=== PATIENT | female | born 1965 | race Caucasian/White ===

== ENCOUNTER 2020-12-01 12:51 | Outpatient (CLI) | payer BC, SELFPAY ==
--- NOTE | ~2020-12-01 | MM_ITS ---
EXAMINATION: MM screening [facility] BI w otis HISTORY: Screening mammogram TECHNIQUE: Craniocaudal and mediolateral oblique 3-D tomosynthesis images were obtained and synthetic 2-D images were generated. CAD analysis was submitted and interpreted. COMPARISON: 03/17/2013, 11/12/2011 bilateral digital screening mammogram examinations BREAST PARENCHYMAL COMPOSITION: There are scattered areas of fibroglandular density. FINDINGS: There is no evidence of suspicious mass, calcification, or architectural distortion to sugg est malignancy in either breast. There has been no suspicious interval change. IMPRESSION: 1. No mammographic evidence of malignancy. 2. Recommend routine screening mammography in one year. BI-RADS Category 1: Negative Reviewed, dictated and finalized at location A.
== END 2020-12-01 12:52 | disposition home or self-care (01) ==
LOC: ANHIMG 12:56
PROVIDERS: PCP Family Medicine; Visit Provider Family Medicine
DX: Z12.31 Encounter for screening mammogram for malignant neoplasm of breast (principal)
CPT/HCPCS: 77063; 77067

== ENCOUNTER 2022-05-17 11:27 | Outpatient (RCR) | payer BC, SELFPAY ==
[2022-05-17 12:52] LABS: Hematocrit 23.4 % (37.0-47.0)
[2022-05-17 12:54] LABS: Hemoglobin 6.6 g/dL (12.0-15.0)
[2022-05-17] MEDS: ACETAMINOPHEN 500 MG TABLET PO (13:46)
[2022-05-17] MEDS: diphenhydrAMINE HCl CAP 25 MG CAPSULE 50 MG PO (13:47)
[2022-05-17] MEDS: SODIUM CHLORIDE 0.9% IV 250 ML 30 ML IV CONT (13:50)
[2022-05-17 13:55] VITALS: BP 133/72; PULSE 72; RESP 16; TEMP 36.8; O2SAT 100
[2022-05-17 14:10] VITALS: BP 137/64; PULSE 71; RESP 16; TEMP 36.8; O2SAT 100
[2022-05-17 15:10] VITALS: BP 144/71; PULSE 77; RESP 16; TEMP 36.6; O2SAT 100
[2022-05-17 16:10] VITALS: BP 126/67; PULSE 72; RESP 16; TEMP 36.8; O2SAT 100
[2022-05-17 16:50] VITALS: BP 137/69; PULSE 75; RESP 16; TEMP 36.7; O2SAT 100
== END 2022-08-15 23:59 | disposition home or self-care (01) ==
LOC: ANHCPCTRAN 11:27
PROVIDERS: PCP Family Medicine; Visit Provider Internal Medicine Medical Oncology
DX: D50.0 Iron deficiency anemia secondary to blood loss (chronic) (principal)
CPT/HCPCS: 36415; 36430; 85014; 85018; 86850; 86900; 86901; 86920; A9270; J7050; P9016

== ENCOUNTER 2022-07-09 11:12 | Outpatient (CLI) | payer BC, SELFPAY ==
--- NOTE | ~2022-07-09 | MM_ITS ---
EXAMINATION: MM screening [facility] BI w otis HISTORY: Screening TECHNIQUE: Craniocaudal and mediolateral oblique 3-D tomosynthesis images were obtained and synthetic 2-D images were generated. CAD analysis was submitted and interpreted. COMPARISON: Comparison to multiple prior studies sequentially, with oldest reviewed study dated 03/17. BREAST PARENCHYMAL COMPOSITION: There are scattered areas of fibroglandular density. FINDINGS: There is a stable fat-containing mass in the periareolar location of the right breast, unch anged, consistent with benign fibroadenolipoma. There is no evidence of suspicious mass, calcificatio n, or architectural distortion to suggest malignancy in either breast. There has been no suspicious i nterval change. IMPRESSION: 1. No mammographic evidence of malignancy. 2. Recommend routine screening mammography in one year. BI-RADS Category 2: Benign finding(s). Reviewed, dictated and finalized at location A. NING SYSTEMS OFFICER
== END 2022-07-09 11:13 | disposition home or self-care (01) ==
PROVIDERS: PCP Family Medicine; Visit Provider Family Medicine
DX: Z12.31 Encounter for screening mammogram for malignant neoplasm of breast (principal)
CPT/HCPCS: 77063; 77067

== ENCOUNTER 2023-07-23 11:25 | Inpatient (IN) | payer BC, SELFPAY ==
[2023-07-23] VITALS (48 sets, daily range): BP systolic 70–156; BP diastolic 45–87; PULSE 83–144; RESP 13–32; TEMP 36.5–38; O2SAT 93–100; BMI 40.4
--- NOTE | ~2023-07-23 | XR_ITS ---
EXAMINATION: XR chest 2V DATE: 07/23/2023 13:50 INDICATION: Sepsis. Low back pain. Weakness. TECHNIQUE: Frontal and lateral views of the chest were obtained. COMPARISON: CT abdomen and pelvis 07/23/2023 FINDINGS: There is mild atelectasis in the lower lung zones. No pleural effusion or pneumothorax. Car diomegaly is noted. There is a large hiatal hernia. IMPRESSION: 1. Mild atelectasis in the lower lung zones. 2. Cardiomegaly. 3. Large hiatal hernia. Reviewed, dictated and finalized at location A. ATTENDANT
--- NOTE | ~2023-07-23 | XR_ITS ---
EXAM: XR abdomen gastric tube insert DATE: 07/23/2023 22:34 HISTORY: ng tube placement . COMPARISON: None available. FINDINGS: NG tube, tip and side port over the stomach. IVC filter. Partially visualized left uretera l stent. Left basilar atelectasis/aspiration. Normal bowel gas pattern. No organomegaly. No abnormal abdominal calcification. Regional bones and soft tissues normal for age. IMPRESSION: NG tube in good position. Reviewed, dictated and finalized at location K. ETING ASSISTANT IMPRESSION: NG tube in good position.
--- NOTE | ~2023-07-23 | XR_ITS ---
EXAMINATION: XR chest 1V portable Exam Date/Time: 07/23/2023 22:12 SUSTAINABILITY SPECIALIST HISTORY: line placement Comparison: Same date at 1:47 PM. RESULT: Lines, tubes, and devices: Endotracheal tube terminating 2.8 cm above the ligia. Left IJ central ve nous line terminating in the brachiocephalic vein. Lungs and pleura: Low lying crowding. Diffuse reticular opacities. Streaky left basilar opacities. Cardiomediastinal silhouette: Stable. Other: No acute osseous or upper abdominal finding. IMPRESSION: Endotracheal tube and left IJ central venous line in good position. Subsegmental left basilar opacities, may represent atelectasis or aspiration given the rapid onset. Mild interstitial edema Reviewed, dictated and finalized at location K. AINABILITY SPECIALIST IMPRESSION: Endotracheal tube and left IJ central venous line in good position. Subsegmental left basilar opacities, may represent atelectasis or aspiration gi shalini the rapid onset. Mild interstitial edema
--- NOTE | ~2023-07-23 | XR_ITS ---
Portable chest x-ray Comparison: 07/24/2023 Clinical History: Tube placement Findings: Endotracheal tube, NG tube, and left-sided central venous line are in satisfactory distanc e. There is left lower lobe/retrocardiac consolidation. There is mild central congestive change in th e right lung. Cardiomediastinal silhouette is stable. Bones and soft tissues are unremarkable. Impression: Left lower lobe atelectasis versus pneumonia. Mild central congestive change. Support tubes, as above. Reviewed, dictated and finalized at location . RT COOLER Impression: Left lower lobe atelectasis versus pneumonia. Mild central congestive change. Support tubes, as above.
--- NOTE | ~2023-07-23 | XR_ITS ---
Portable chest x-ray Comparison: 07/29/2023 Clinical History: Respiratory failure Findings: Endotracheal tube, NG tube, and left-sided central venous line remain in place. There is c entral congestive change with mild bibasilar pulmonary edema. Cardiomediastinal silhouette is stable . Bones and soft tissues are unremarkable. Impression: Central congestive change and probable mild bibasilar pulmonary edema. Correlate clinically for infec tion. Support tubes, as above. Reviewed, dictated and finalized at location . ECTIONERY DROPS MACHINE OPERATOR Impression: Central congestive change and probable mild bibasilar pulmonary edema. Correlat e clinically for infection. Support tubes, as above.
--- NOTE | ~2023-07-23 | XR_ITS ---
Portable chest x-ray Comparison: 07/28/2023 Clinical History: Respiratory failure Findings: Endotracheal tube and NG tube are in satisfactory positions. Left-sided central venous gentry e is unchanged. There is mild patchy bibasilar perihilar airspace disease. Cardiomediastinal silhoue tte is stable. Bones and soft tissues are unremarkable. Impression: Support tubes, as above. Probable mild bibasilar pulmonary edema/atelectasis. Correlate clinically for infection. Reviewed, dictated and finalized at location . CE INVESTIGATOR Impression: Support tubes, as above. Probable mild bibasilar pulmonary edema/atelectasis. Correlate clinically for i nfection.
--- NOTE | ~2023-07-23 | XR_ITS ---
Portable chest x-ray Comparison: 07/27/2023 Clinical History: Respiratory failure Findings: Endotracheal tube, NG tube, and left-sided central venous line are in satisfactory positio ns. There is probable mild pulmonary edema pattern. No definite pleural effusions. Cardiomediastinal silhouette is stable. Bones and soft tissues are unremarkable. Impression: Mild pulmonary edema pattern. Support tubes, as above. Reviewed, dictated and finalized at location . RVISOR WINTER Impression: Mild pulmonary edema pattern. Support tubes, as above.
--- NOTE | ~2023-07-23 | XR_ITS ---
EXAMINATION: XR chest 1V portable DATE: 07/26/2023 06:00 INDICATION: Intubated TECHNIQUE: frontal view of the chest was obtained. COMPARISON: Chest radiograph dated 07/25/2023 FINDINGS: Endotracheal tube tip 3.1 cm above level of the ligia. Airspace opacities with some air bronchograms in the left lower lung zone. No pulmonary edema, pneumothorax or right pleural effusion. Possible sm all left pleural effusion. The cardiomediastinal silhouette is normal. IMPRESSION: 1. Persistent opacities at the left lower lung zone which could represent atelectasis, pneumonia, sma ll left pleural effusion or some combination thereof. Reviewed, dictated and finalized at location A. [facility] [facility] ANALYST IMPRESSION: 1. Persistent opacities at the left lower lung zone which could represent atele ctasis, pneumonia, small left pleural effusion or some combination thereof.
--- NOTE | ~2023-07-23 | CT_ITS ---
Non-contrast Head CT History: Encephalopathy Technique: Axial non-contrast imaging of the brain was performed. Dose reduction technique was used on this scan by utilizing automated exposure control and iterative reconstruction technique. The dose -length product (DLP) was 605.33 mGy-cm. Findings: There is no evidence of intracranial hemorrhage, mass lesion, or acute infarct. Brain par enchyma appears normal. The ventricles and subarachnoid spaces are normal in size. The calvarium ap pears normal. The visualized paranasal sinuses and mastoid air cells are clear. Impression: No significant abnormality seen. Reviewed, dictated and finalized at location . TREATING INSPECTOR Impression: No significant abnormality seen.
--- NOTE | ~2023-07-23 | XR_ITS ---
EXAMINATION: XR chest 1V portable INDICATION: Respiratory failure TECHNIQUE: Portable AP chest at 0558 hours COMPARISON: 08/01/2023 FINDINGS: A left internal jugular catheter ends with this tip in the brachiocephalic vein. The heart size is normal. A mild diffuse interstitial pattern persists without significant change. No pleural e ffusion or pneumothorax. IMPRESSION: 1. Mild pulmonary edema, stable. Reviewed, dictated and finalized at location F. I SPINDLE OPERATOR
--- NOTE | ~2023-07-23 | XR_ITS ---
EXAMINATION: XR chest 1V portable DATE: 07/27/2023 06:25 INDICATION: Intubated TECHNIQUE: frontal view of the chest was obtained. COMPARISON: Chest radiograph dated 07/26/2023 FINDINGS: Endotracheal tube tip 3.0 cm above the ligia. Nasogastric tube in the stomach. Left internal jugular central venous catheter with distal tip in the left brachiocephalic vein. Lung volumes remain small. Persistent consolidation with air bronchograms in the left lower lung zone . There is also a small left pleural effusion. There are some retrodiaphragmatic opacities at the rig ht lung base which could represent additional atelectasis or pneumonia. No pneumothorax or right-side d pleural effusion. Heart size within normal limits for AP technique. Large hiatal hernia. IMPRESSION: 1. Small lung volumes with opacities in the bilateral lower lung zones, left greater than right, whic h could represent atelectasis or pneumonia. 2. Small left pleural effusion. 2. Large hiatal hernia. Reviewed, dictated and finalized at location A. VIOLIN MAKER IMPRESSION: 1. Small lung volumes with opacities in the bilateral lower lung zones, left gr eater than right, which could represent atelectasis or pneumonia. 2. Small left pleural effusion. 2. Large hiatal hernia.
--- NOTE | ~2023-07-23 | XR_ITS ---
Portable chest x-ray Comparison: 07/31/2023 Clinical History: Respiratory failure Findings: Left-sided central venous line is in satisfactory position. Possible minimal bibasilar bandar tral congestive change. Cardiomediastinal silhouette is stable. Bones and soft tissues are unremarka ble. Impression: Support line, as above. Possible minimal bibasilar central congestive change. Reviewed, dictated and finalized at location M. OMS APPRAISER Impression: Support line, as above. Possible minimal bibasilar central congestive change.
--- NOTE | ~2023-07-23 | XR_ITS ---
EXAMINATION: XR chest ET placement DATE: 07/28/2023 19:51 INDICATION: Intubation. TECHNIQUE: A single frontal view of the chest was obtained. COMPARISON: Chest single view at 5:21 AM, CT abdomen and pelvis 07/23/2023 FINDINGS: There is no pneumonia, pleural effusion, or pneumothorax. Cardiomegaly is noted. There is a moderate-sized hiatal hernia. The endotracheal tube tip is 3.3 cm above the ligia. The nasogastric tube tip is in the stomach. A left internal jugular central venous catheter is seen with tip in the l eft brachiocephalic vein. IMPRESSION: 1. Cardiomegaly. 2. Moderate-sized hiatal hernia. Reviewed, dictated and finalized at location E. GHT CHECKER
--- NOTE | ~2023-07-23 | CT_ITS ---
EXAMINATION: CT abdomen pelvis wo con DATE: 07/23/2023 13:45 INDICATION: Left flank pain. Sepsis. TECHNIQUE: Computed tomography (CT) of the abdomen and pelvis was performed without intravenous contr ast. The dose-length product was 1493.51 mGy-cm. Automated exposure control and iterative reconstruct ion technique were employed. COMPARISON: CT dated 06/23/2014. FINDINGS: There is dependent atelectasis. Heart size normal. Large hiatal hernia. There is thickening of the left adrenal gland which may reflect adrenal hyperplasia or underlying adrenal adenoma. There are multiple bilateral nonobstructing renal stones. There is an 8 mm left UPJ stone with hydronephro sis. There is a prominent left umbilical vein. There is a periumbilical hernia containing nonobstruct ed small bowel. There is moderate fluid throughout the small bowel without obstruction. Status post h ysterectomy. Colonic diverticulosis without evidence for diverticulitis. There is an IVC filter prese nt. There is grade 2 spondylolisthesis at L5-S1 secondary to spondylolysis. Moderate lumbar and lower thoracic spondylosis. IMPRESSION: 1. Left UPJ stone measuring 8 mm with moderate hydronephrosis. 2: Nonobstructing bilateral nephrolithiasis. 3: Large hiatal hernia. 4: Umbilical hernia containing nonobstructed small bowel. Reviewed, dictated and finalized at location B. S DEVELOPMENT DIRECTOR
--- NOTE | ~2023-07-23 | XR_ITS ---
EXAMINATION: XR chest 1V portable INDICATION: Respiratory failure TECHNIQUE: Portable AP chest at 0613 hours COMPARISON: 08/02/2023 FINDINGS: A left internal jugular catheter ends with its tip in the brachiocephalic vein. The heart s ize is normal. No pleural effusion or pneumothorax. A mild diffuse interstitial pattern persists with out significant change. IMPRESSION: 1. Stable, mild pulmonary edema. Reviewed, dictated and finalized at location F. OPERATION SUPERVISOR
--- NOTE | ~2023-07-23 | XR_ITS ---
Portable chest x-ray Comparison: 07/23/2023 Clinical History: Tube placement Findings: Endotracheal tube and NG tube are in satisfactory positions. There is probable retrocardia c airspace disease, unchanged. Right lung essentially clear. Cardiomediastinal silhouette is stable. Bones and soft tissues are unremarkable. Impression: Support tubes, as above. Probable retrocardiac airspace disease, compatible with atelectasis versus pneumonia. Reviewed, dictated and finalized at location M. CAL GOODS WORKER Impression: Support tubes, as above. Probable retrocardiac airspace disease, compatible with atelectasis versus pneu monia.
--- NOTE | ~2023-07-23 | XR_ITS ---
EXAMINATION: XR retrograde pyelo w/stent LT DATE: 07/23/2023 21:00 ORDINARY SEAMAN INDICATION: KIDNEY STONE . TECHNIQUE: 4 fluoroscopic images including a cine clip and 45 images of the abdomen and pelvis were o btained during left retrograde pyelography with stent placement. I was not present during the procedu re. Fluoroscopy exposure time was 46.3 seconds. Air Kerma 29.57 mGy. DAP 1.49 mGym2. COMPARISON: CT abdomen pelvis, same date FINDINGS: IVC filter. 8mm left ureteral stone. Mild caliectasis and pelviectasis. Post stent deployment, the pr oximal coil projects over an upper pole calyx, the distal coil projects over the bladder. IMPRESSION: Fluoroscopic documentation of left retrograde pyelography with stent placement. Please refer to the o perative note for complete procedural details . Reviewed, dictated and finalized at location K. NARY SEAMAN IMPRESSION: Fluoroscopic documentation of left retrograde pyelography with stent placement. Please refer to the operative note for complete procedural details .
--- NOTE | ~2023-07-23 | XR_ITS ---
Portable chest x-ray Comparison: 07/30/2023 Clinical History: Respiratory failure Findings: Endotracheal tube, NG tube and left-sided central venous line are in satisfactory position . There is minimal bibasilar interstitial prominence. Cardiomediastinal silhouette is stable. Bones and soft tissues are unremarkable. Impression: Minimal bibasilar interstitial prominence, nonspecific. Stable support tubes. Reviewed, dictated and finalized at [facility]. ED CHEESE MAKER Impression: Minimal bibasilar interstitial prominence, nonspecific. Stable support tubes.
--- NOTE | ~2023-07-23 | US_ITS ---
EXAMINATION: US abdomen limited DATE: 07/25/2023 13:44 INDICATION: Abnormal liver function tests. TECHNIQUE: Multiple grayscale and Doppler ultrasound images of the abdomen were obtained. COMPARISON: CT abdomen and pelvis 07/23/2023 FINDINGS: The visualized portions of the head, body, and tail of the pancreas are normal. The liver i s normal without focal lesion. There is is antegrade flow in main portal vein. The gallbladder is nor mal in size and contains gallstones. Gallbladder wall thickening is noted. The common duct is normal and measures 6 mm. IMPRESSION: 1. Cholelithiasis. Gallbladder wall thickening may be seen with chronic liver disease, interstitial e kinsey, or chronic cholecystitis. Reviewed, dictated and finalized at location A. DRIVER IMPRESSION: 1. Cholelithiasis. Gallbladder wall thickening may be seen with chronic liver d isease, interstitial edema, or chronic cholecystitis.
--- NOTE | 2023-07-23 12:04 | PC.NURSE ---
Provider aware of patient's BP and gave verbal order for a liter of normal saline
--- NOTE | 2023-07-23 12:05 | ED.NAVMDI ---
HPI - Nausea/Vomiting/Diarrhea General Chief complaint: Nausea/Vomiting/Diarrhea Stated complaint: sick since friday, kidney stone r/o Time Seen by Provider: 07/23/23 12:03 History of Present Illness HPI Narrative: Patient is a 58-year-old female here with generalized weakness and left flank pain. Patient states that on Friday, 4 days ago she began having left-sided flank pain. She notes that it was associated with diffuse body myalgias as well as dry heaves. She notes she has had some mild feeling of fever, has not checked her temperature. She has had a couple episodes of loose stools, they were dark in color but this is typical for her due to taking iron supplementation for chronic anemia. She does note a prior history of kidney stone, was concerned that this could be another kidney stone and called her primary care doctor to attempt to go to outpatient imaging today. They were unavailable to be reached so this prompted her to come into the emergency department. She notes she has had some decreased p.o. intake. She does note a mild cough. No urinary symptoms. No known sick contacts. Related Data Home Medications Medication Instructions Recorded Confirmed ascorbate calcium (vitamin C) 500 500 mg PO DAILY 03/02/20 05/28/23 mg tablet pantoprazole 40 mg tablet,delayed 40 mg PO QAM 02/22/21 05/28/23 release vitamin B complex (B 1 tablet PO DAILY 06/27/22 05/28/23 Complex-Vitamin B12 tablet) vitamin E (dl, acetate) 45 mg (100 45 mg PO DAILY 06/27/22 05/28/23 unit) capsule Allergies Allergy/AdvReac Type Severity Reaction Status Date / Time meperidine Allergy Unknown hypotension Verified 07/23/23 11:56 gabapentin AdvReac Mild could not Verified 07/23/23 11:56 tolerate duloxetine [From Cymbalta] AdvReac could not Verified 07/23/23 11:56 tolerate how she felt Review of Systems Review of Systems: All systems reviewed & are unremarkable except as noted in HPI and below PMFSH Past Medical History Medical History (Updated 07/23/23 @ 19:44 by Bella Reyes, BETTY) Acute upper GI bleed Complex regional pain syndrome i of left lower limb Generalized anxiety disorder Hiatal hernia egd : hiatal hernia Sepsis Surgical History Surgical History History of partial hysterectomy (~1999) Family History Family History Mother Family history of malignant neoplasm Family history of diabetes mellitus in first degree relative Other Diabetes mellitus Social History Social History Smoking status: Never smoker Alcohol intake: never Lack of Transportation: No Lack of Food: Never True Current Housing: I Have Housing Concerned About Future Housing: No Difficulty Paying Gas/Electric Bills: No Currently Unemployed: No Education: Grade School Difficulty w/ Childcare or Family Care: No Exam Narrative: GENERAL: Ill-appearing, well-nourished, and in no acute distress. HEAD: Normocephalic, atraumatic. EYES: PERRLA and EOMI. ENT: Nares clear. Mucous membranes dry. NECK: Supple. CHEST: Clear to auscultation. No respiratory distress. HEART: Regular rate and rhythm. Normal peripheral pulses. ABDOMEN: Soft, nontender, nondistended. Left CVA tenderness. EXTREMITIES: Normal range of motion. No edema. SKIN: Warm, dry, no rash. NEURO: No focal deficits. Alert and oriented x3. PSYCH: Normal mood and affect. Course Course Emergency Course: Chart review performed. Patient hypotensive at 70/46. Complaining of lower back pain as well as N/V/D per triage note. Clinic note from October reviewed, history of GI bleed, complex regional pain syndrome. Patient seen evaluated, ill-appearing, however able to carry on full conversation. Some mild tachypnea with dry mucous membranes. She has left-sided CVA
--- NOTE | 2023-07-23 12:06 | ECG_ITS ---
Measurements Intervals [place] Rate: 82 P: 27 TN: 135 QRS: 7 QRSD: 94 T: -1 QT: 359 QTc: 420 Interpretive Statements SINUS RHYTHM LEFT VENTRICULAR HYPERTROPHY BORDERLINE ST-T WAVE ABNORMALITY- INFERIOR LEADS BORDERLINE ECG NO PREVIOUS ECG AVAILABLE FOR COMPARISON Electronically Signed On 07-23-2023 12:47:18 [employer]OUTE [employer]ER by Everardo Isaac D.O.
[2023-07-23] MEDS: ONDANSETRON INJ 4 MG/2 ML VIAL IV PUSH ×2 (12:23→20:48)
[2023-07-23 12:31] LABS: Hematocrit 29.1 % (37.0-47.0); Hemoglobin 9.2 g/dL (12.0-15.0); Mean Corpuscular HGB Conc 31.6 g/dl (32-36); Mean Corpuscular Hemoglobin 29.6 pg (26-34); Mean Corpuscular Volume 93.6 fl (80-100); Mean Platelet Volume 11.5 fl (7.4-10.4); Platelet Count Result 125 k/mm3 (150-375); Red Blood Count 3.11 M/mm3 (4.2-5.4); Red Cell Distribution Width 14.5 % (11.5-14.5); White Blood Count 20.3 K/mm3 (4.5-10.0)
[2023-07-23 12:34] LABS: INR 1.2; Prothrombin Time 16.3 Seconds (11.1-14.7)
[2023-07-23 12:36] LABS: Lactic Acid Reflex 3.5 mmol/L (0.7-2.0); Partial Thromboplastin Time 39.2 SECONDS (22.3-36.8)
[2023-07-23] MEDS: LACTATED RINGERS 1,000 ML 999 ML IV CONT ×3 (12:45→15:13)
[2023-07-23] MEDS: SODIUM CHLORIDE 0.9% IV 1,000 ML 999 ML (12:46)
[2023-07-23 12:49] LABS: Alanine Aminotransferase 30 U/L (6-35); Albumin Level 3.6 g/dL (3.5-5.1); Alkaline Phosphatase 102 U/L (38-126); Anion Gap 15 mmol/L (8-16); Aspartate Amino Transferase 36 U/L (14-36); Bilirubin,Total 0.8 mg/dL (0.2-1.3); Blood Urea Nitrogen 31 mg/dL (7-17); CRP 23.7 mg/dL (<1.0); Calcium 8.8 mg/dL (8.4-10.2); Carbon Dioxide 17 mmol/L (22-30); Chloride 107 mmol/L (98-107); Estimated Glomerular Filt Rate 20; Glucose 101 mg/dL (65-110); Lipase 28 U/L (23-300); Potassium 3.6 mmol/L (3.4-5.0); Sodium 139 mmol/L (137-145); Troponin I 0.969 ng/mL (0.000-0.034)
[2023-07-23 12:56] LABS: Band Neutrophils Percent 46 % (0-6); Lymphocytes Absolute Manual 0.81 K/mm3 (1.1-4.5); Metamyelocytes Percent 3 %; Monocytes Absolute Manual 0.81 K/mm3 (0.1-0.90); Monocytes Percent Manual 4 % (3-9); Neutrophils Absolute Manual 18.06 K/mm3 (1.7-7.2); Neutrophils Percent Manual 43 % (46-73); Total Cells Counted 100
[2023-07-23 12:57] LABS: Platelet Estimate Adequate (Adequate)
[2023-07-23 12:58] LABS: Anisocytosis 1+ (NORMAL); Hypochromasia 1+ (NORMAL); Schistocytes None Seen (NORMAL)
[2023-07-23 13:24] LABS: Influenza A QL RT-PCR Negative (Negative); Influenza B QL RT-PCR Negative (Negative); RSV RNA, RT-PCR Negative (Negative); SARS-CoV-2 RNA PCR Negative (Negative)
--- NOTE | 2023-07-23 13:37 | PC.NURSE ---
Attempted straight catheter on patient with no success. Bladder scanner showed 150mL in bladder. Will let provider know and attempt again to collect urine specimen.
[2023-07-23] MEDS: CEFEPIME 2 GM/NS 50 ML 2 GM/50 ML BAG IVPB (14:17)
--- NOTE | 2023-07-23 15:05 | PC.NURSE ---
Patient aware of needing urine, but patient is refusing straight catheter. will make provider aware
[2023-07-23 15:21] LABS: Reflex Lactic Acid Yes or No Add Lactic
--- NOTE | 2023-07-23 16:02 | ECG_ITS ---
Measurements Intervals [place] Rate: 98 P: 43 VT: 130 QRS: 15 QRSD: 94 T: 12 QT: 325 QTc: 416 Interpretive Statements SINUS RHYTHM FREQUENT ATRIAL PREMATURE COMPLEXES BORDERLINE ST-T WAVE ABNORMALITY- INFERIOR LEADS BASELINE ARTIFACT- I, II, III, AVR, AVL, AVF, V3-V6 ABNORMAL ECG COMPARED TO ECG 07/23/2023 12:13:12 ATRIAL PREMATURE COMPLEXES NOW PRESENT Electronically Signed On 07-23-2023 16:27:24 SUBSTITUTE NURSE by Everardo Isaac D.O.
[2023-07-23 16:28] LABS: Lactic Acid 3.5 mmol/L (0.7-2.0)
[2023-07-23] MEDS: VANCOMYCIN 1,250 MG/NS 250 ML 1,250 MG/250 ML BAG 166.67 MG IVPB ×2 (16:39→18:30)
--- NOTE | 2023-07-23 16:44 | PC.NURSE ---
Pt asking again about water after being educated on why she cannot drink/eat per Dr. Don. This RN spoke with MD and educated pt and family again about possible need for OR tonight and need for urine and states that patient will not be able to eat/drink until after urine is received and need for OR tonight is ruled out. Provider aware of discussion and that patient is still refusing straight cath for urine.
--- NOTE | 2023-07-23 16:51 | PC.NURSE ---
Patient able to ambulate to the restroom with steady gate
[2023-07-23 18:22] LABS: Appearance Urine Turbid (Clear); Bacteria Urine Rare /hpf; Bilirubin Urine 1+ (Negative); Blood Urine 2+ (Negative); Color Urine Dark Yellow (Yellow); Glucose Urine UA Negative (Negative); Ketones Urine Trace mg/dL (Negative); Leukocyte Esterase Ur 2+ LEU/UL (Negative); Need Manual Microscopic Reviewed; Nitrate Urine Negative (Negative); Non Pathogenic Casts >20; Protein Urine 2+ mg/dL (Negative); RBC Urine 0-2 /hpf (0-2); Specific Grav Ur 1.021 (1.001-1.035); Squamous Epithelial Cell Urine Few /hpf (Few); Urobilinogen Urine 0.2 mg/dL (<2.0); WBC Urine >100 /hpf
[2023-07-23 18:25] LABS: Add Urine Microscopic? YES
--- NOTE | 2023-07-23 19:43 | WPDANESEPP ---
Anes - Eval Pre Procedure Procedure: cysto left stent Date/Time: 07/23/23 19:43 Pre Op Diagnosis: sick since friday, kidney stone r/o Patient Data Age: 58 Gender: F Height: 1.68 m Weight: 108.8 kg Last Vital Signs Temp 36.5 C 07/23/23 11:43 Pulse 100 07/23/23 19:31 Resp 18 07/23/23 19:31 BP 118/78 07/23/23 19:30 Pulse Ox 98 07/23/23 19:31 O2 Del Method Room Air 07/23/23 11:43 Allergies Allergy/AdvReac Type Severity Reaction Status Date / Time meperidine Allergy Unknown hypotension Verified 07/23/23 11:56 gabapentin AdvReac Mild could not Verified 07/23/23 11:56 tolerate [facility] AdvReac could not Verified 07/23/23 11:56 tolerate how she felt Home Medications Medication Instructions Recorded Confirmed Type ascorbate calcium (vitamin C) 500 500 mg PO DAILY 03/02/20 05/28/23 History mg tablet pantoprazole 40 mg tablet,delayed 40 mg PO QAM 02/22/21 05/28/23 History release vitamin B complex (B 1 tablet PO DAILY 06/27/22 05/28/23 History Complex-Vitamin B12 tablet) vitamin E (dl, acetate) 45 mg (100 45 mg PO DAILY 06/27/22 05/28/23 History unit) capsule lovastatin 10 mg tablet See Rx Instructions .Route 10/09/22 05/28/23 Rx .COMPLEX #90 tabs triamcinolone acetonide 0.1 % 1 applic topical BID #80 grams 05/28/23 05/28/23 Rx topical cream alprazolam 0.25 mg tablet 0.25 mg PO DAILY PRN anxiety #30 07/14/23 Rx tabs Laboratory Tests 07/23/23 07/23/23 07/23/23 12:15 12:16 12:42 WBC 20.3 H K/mm3 (4.5-10.0) RBC 3.11 L M/mm3 (4.2-5.4) Hgb 9.2 L g/dL (12.0-15.0) Hct 29.1 L % (37.0-47.0) MCV 93.6 fl (80-100) MCH 29.6 pg (26-34) MCHC 31.6 L g/dl (32-36) RDW 14.5 % (11.5-14.5) Plt Count 125 L k/mm3 (150-375) MPV 11.5 H fl (7.4-10.4) Immature Gran % (Auto) Not Reportable Neut % (Auto) Not Reportable Lymph % (Auto) Not Reportable [place] % (Auto) Not Reportable Eos % (Auto) Not Reportable Baso % (Auto) Not Reportable Lymph # (Auto) Not Reportable [place] # (Auto) Not Reportable Eos # (Auto) Not Reportable Baso # (Auto) Not Reportable Abs Immat Gran (auto) Not Reportable Absolute Neuts (auto) Not Reportable Absolute Nucleated RBC Not Reportable Total Counted 100 Neutrophils % (Manual) 43 L % (46-73) Band Neutrophils % 46 H % (0-6) Lymphocytes % (Manual) 4.0 L % (18-44) Monocytes % (Manual) 4 % (3-9) Metamyelocytes % 3 % Nucleated RBC % Not Reportable Abs Neuts (Manual) 18.06 H K/mm3 (1.7-7.2) Abs Lymphs (Manual) 0.81 L K/mm3 (1.1-4.5) Abs Monocytes (Manual) 0.81 K/mm3 (0.1-0.90) Platelet Estimate Adequate (Adequate) Hypochromasia 1+ (NORMAL) Anisocytosis 1+ (NORMAL) Schistocytes None seen (NORMAL) PT 16.3 H Seconds (11.1-14.7) INR 1.2 APTT 39.2 H SECONDS (22.3-36.8) Sodium 139 mmol/L (137-145) Potassium 3.6 mmol/L (3.4-5.0) Chloride 107 mmol/L (98-107) Carbon Dioxide 17 L mmol/L (22-30) Anion Gap 15 mmol/L (8-16) BUN 31 H mg/dL (7-17) Creatinine 2.50 H mg/dL (0.7-1.0) Estim Creat Clear Calc Not Reportable Estimated GFR 20 L (59 - ) Glucose 101 mg/dL (65-110) Lactic Acid 3.5 H mmol/L (0.7-2.0) Calcium 8.8 mg/dL (8.4-10.2) Total Bilirubin 0.8 mg/dL (0.2-1.3) AST 36 U/L (14-36) ALT 30 U/L (6-35) Alkaline Phosphatase 102 U/L (38-126) Troponin I 0.969 H* ng/mL (0.000-
[2023-07-23] MEDS: fentaNYL CITRATE INJ (*CRX) 100 MCG/2 ML VIAL 50 MCG IV PUSH (19:59)
[2023-07-23] MEDS: MORPHINE SULFATE (*CRX) 4 MG/ML INJ IV PUSH (20:46)
--- NOTE | 2023-07-23 20:50 | WPDURCON ---
Assessment and Plan Assessment and plan (1) Septic shock: Code(s): A41.9 - Sepsis, unspecified organism; R65.21 - Severe sepsis with septic shock Status: Acute (2) Acute UTI: Code(s): N39.0 - Urinary tract infection, site not specified Status: Acute (3) Left ureteral stone: Code(s): N20.1 - Calculus of ureter Status: Acute Plan 58-year-old female with 8mm left UPJ stone and associated UTI/sepsis. -emergent cystoscopy and left ureteral stent insertion. Risks of procedure include but limited to infection, bleeding, pain, injury to surrounding structures, inability to place stent, need for additional operation discussed. Patient understands that she will need additional definitive stone management when she recovers from this procedure. -patient will require postoperative ICU management. -continue broad-spectrum IV antibiotics. Urology Consult Note HPI Date Seen: 07/23/23 Primary Care Provider: Allan Andrade MD Consult Narrative Narrative: Olesya Pappas is a 58 year old female with a history nephrolithiasis. She states that she felt poorly for the past few days. The patient presented to the emergency department earlier today she was found to be hypotensive. CT scan imaging revealed a left UPJ stone and urinalysis concerning for UTI. Urology was consulted for evaluation PMFSH Past Medical History Medical History (Updated 07/23/23 @ 20:53 by Neema Calderón MD) Acute upper GI bleed Complex regional pain syndrome i of left lower limb Generalized anxiety disorder Hiatal hernia egd .22: hiatal hernia Left ureteral stone Sepsis Surgical History Surgical History History of partial hysterectomy (~1999) Family History Family History Mother Family history of malignant neoplasm Family history of diabetes mellitus in first degree relative Other Diabetes mellitus Social History Social History Smoking status: Never smoker Alcohol intake: never Lack of Transportation: No Lack of Food: Never True Current Housing: I Have Housing Concerned About Future Housing: No Difficulty Paying Gas/Electric Bills: No Currently Unemployed: No Education: Grade School Difficulty w/ Childcare or Family Care: No Meds Home Medications and Allergies Home Medications Medication Instructions Recorded Confirmed Type ascorbate calcium (vitamin C) 500 500 mg PO DAILY 03/02/20 05/28/23 History mg tablet pantoprazole 40 mg tablet,delayed 40 mg PO QAM 02/22/21 05/28/23 History release vitamin B complex (B 1 tablet PO DAILY 06/27/22 05/28/23 History Complex-Vitamin B12 tablet) vitamin E (dl, acetate) 45 mg (100 45 mg PO DAILY 06/27/22 05/28/23 History unit) capsule lovastatin 10 mg tablet See Rx Instructions .Route 10/09/22 05/28/23 Rx .COMPLEX #90 tabs triamcinolone acetonide 0.1 % 1 applic topical BID #80 grams 05/28/23 05/28/23 Rx topical cream alprazolam 0.25 mg tablet 0.25 mg PO DAILY PRN anxiety #30 07/14/23 Rx tabs Allergies Allergy/AdvReac Type Severity Reaction Status Date / Time meperidine Allergy Unknown hypotension Verified 07/23/23 11:56 gabapentin AdvReac Mild could not Verified 07/23/23 11:56 tolerate duloxetine [From Cymbalta] AdvReac could not Verified 07/23/23 11:56 tolerate how she felt Vital Signs Vital Signs - 24 hr 07/23/23 11:43 07/23/23 12:04 07/23/23 11:53 Temperature 36.5 C Pulse Rate 97 84 Respiratory Rate 16 24 H Blood Pressure 70/46 L 71/45 L Pulse Oximetry 98 96 96 Oxygen Delivery Room Air 07/23/23 12:00 07/23/23 12:15 07/23/23 12:26 Temperature Pulse Rate 83 84 85 Respiratory Rate 27 H 23 H 29 H Blood Pressure 78/54 L Pulse Oximetry 97 Oxygen Delivery 06/26
--- NOTE | 2023-07-23 21:04 | PC.NURSE ---
Got a call from the OR about patient. This RN went to get patient ready for OR at 2039 and found patient splinting and tachypneic. patient states was having severe back pain. Patient placed on 4L oxygen NC and this RN went to get a provider to put eyes on the patient. CORA Montes De Oca, went to patient's room and ordered 4mg morphine for patient due to her splinting and pain. Dr Calderón came to patient's bedside and states that the patient needed to get to the OR for her procedure. This RN took patient to the OR per Dr Calderón orders for her procedure.
--- NOTE | 2023-07-23 21:21 | P.OP_ITS ---
Procedure Note - Detailed Date of Procedure 07/23/23 Pre-op Diagnosis Left ureteral stone, sepsis Post-op Diagnosis Same Procedure Performed Cystoscopy, left retrograde pyelogram, left ureteral stent insertion, Byers catheter insertion Surgeon Neema Calderón MD Anesthesia General Findings Left proximal ureteral stone pushed back into the renal pelvis with stent insertion Moderate left hydronephrosis on retrograde pyelogram Description of Procedure Informed consent was obtained. Patient taken the operating. She was given preoperative IV antibiotics. She reduced anesthesia. She was prepped and draped normal sterile fashion. A 22 F cystoscope was inserted into the urethra. The bladder had mucosal changes consistent with her known infection. We cannulated the left ureteral orifice with a wire and then advanced a 5 F angiographic catheter. The stone was seen in the proximal ureter. We then performed retrograde pyelogram which noted moderate left hydronephrosis. The left ureter stone appeared to be pushed back into the renal pelvis with the re trograde pyelogram. Over the wire a 6 F variable length stent was placed with a curl in the upper pole calyx and a curl in the bladder. The bladder was emptied with a 18 F Byers catheter. The patient was then taken to the ICU in guarded condition Complications No immediate complications Condition Critical Disposition ICU
[2023-07-23] MEDS: LIDOCAINE HCL 2% GEL UROJET 10 ML PKG MUCOUS MEM (21:29)
--- NOTE | 2023-07-23 21:55 | ECG_ITS ---
Measurements Intervals [place] Rate: 112 P: 36 [place]: 148 QRS: 8 QRSD: 87 T: 7 QT: 299 QTc: 409 Interpretive Statements SINUS TACHYCARDIA NONSPECIFIC ST & T-WAVE ABNORMALITY- DIFFUSE LEADS ABNORMAL ECG COMPARED TO ECG 07/23/2023 16:12:18 SINUS TACHYCARDIA NOW PRESENT Electronically Signed On 07-24-2023 6:30:20 [employer] SKILLS TEACHER by Everardo Isaac D.O.
--- NOTE | 2023-07-23 22:00 | WPDANESEPPF ---
Anes - Initial Pre Proc Eval Procedure: Operation Date: 07/23/23 08:30 Proposed Procedures p Cysto, RPG, Stone Ext, Stent Placement(Left) - Neema Calderón MD Date/Time: 07/23/23 22:01 Pre Op Diagnosis: sick since friday, kidney stone r/o Patient Data Age: 58 Gender: F Height: 1.68 m Weight: 108.8 kg Last Vital Signs Temp 36.5 C 07/23/23 11:43 Pulse 109 H 07/23/23 20:30 Resp 26 H 07/23/23 20:30 BP 99/55 L 07/23/23 20:16 Pulse Ox 97 07/23/23 20:16 O2 Del Method Room Air 07/23/23 11:43 Allergies Allergy/AdvReac Type Severity Reaction Status Date / Time meperidine Allergy Unknown hypotension Verified 07/23/23 11:56 gabapentin AdvReac Mild could not Verified 07/23/23 11:56 tolerate duloxetine [From [facility]] AdvReac could not Verified 07/23/23 11:56 tolerate how she felt Home Medications Medication Instructions Recorded Confirmed Type ascorbate calcium (vitamin C) 500 500 mg PO DAILY 03/02/20 05/28/23 History mg tablet pantoprazole 40 mg tablet,delayed 40 mg PO QAM 02/22/21 07/23/23 History release vitamin B complex (B 1 tablet PO DAILY 06/27/22 05/28/23 History Complex-Vitamin B12 tablet) vitamin E (dl, acetate) 45 mg (100 45 mg PO DAILY 06/27/22 05/28/23 History unit) capsule alprazolam 0.25 mg tablet 0.25 mg PO DAILY PRN anxiety #30 07/14/23 07/23/23 Rx tabs lovastatin 10 mg tablet 10 mg PO HS 07/23/23 07/23/23 History Laboratory Tests 07/23/23 07/23/23 07/23/23 12:15 12:16 12:42 WBC 20.3 H K/mm3 (4.5-10.0) RBC 3.11 L M/mm3 (4.2-5.4) Hgb 9.2 L g/dL (12.0-15.0) Hct 29.1 L % (37.0-47.0) MCV 93.6 fl (80-100) MCH 29.6 pg (26-34) MCHC 31.6 L g/dl (32-36) RDW 14.5 % (11.5-14.5) Plt Count 125 L k/mm3 (150-375) MPV 11.5 H fl (7.4-10.4) Immature Gran % (Auto) Not Reportable Neut % (Auto) Not Reportable Lymph % (Auto) Not Reportable [place] % (Auto) Not Reportable Eos % (Auto) Not Reportable Baso % (Auto) Not Reportable Lymph # (Auto) Not Reportable [place] # (Auto) Not Reportable Eos # (Auto) Not Reportable Baso # (Auto) Not Reportable Abs Immat Gran (auto) Not Reportable Absolute Neuts (auto) Not Reportable Absolute Nucleated RBC Not Reportable Total Counted 100 Neutrophils % (Manual) 43 L % (46-73) Band Neutrophils % 46 H % (0-6) Lymphocytes % (Manual) 4.0 L % (18-44) Monocytes % (Manual) 4 % (3-9) Metamyelocytes % 3 % Nucleated RBC % Not Reportable Abs Neuts (Manual) 18.06 H K/mm3 (1.7-7.2) Abs Lymphs (Manual) 0.81 L K/mm3 (1.1-4.5) Abs Monocytes (Manual) 0.81 K/mm3 (0.1-0.90) Platelet Estimate Adequate (Adequate) Hypochromasia 1+ (NORMAL) Anisocytosis 1+ (NORMAL) Schistocytes None seen (NORMAL) PT 16.3 H Seconds (11.1-14.7) INR 1.2 APTT 39.2 H SECONDS (22.3-36.8) Sodium 139 mmol/L (137-145) Potassium 3.6 mmol/L (3.4-5.0) Chloride 107 mmol/L (98-107) Carbon Dioxide 17 L mmol/L (22-30) Anion Gap 15 mmol/L (8-16) BUN 31 H mg/dL (7-17) Creatinine 2.50 H mg/dL (0.7-1.0) Estim Creat Clear Calc Not Reportable Estimated GFR 20 L (59 - ) Glucose 101 mg/dL (65-110) Lactic Acid 3.5 H mmol/L (0.7-2.0) Calcium 8.8 mg/dL (8.4-10.2) Total Bilirubin 0.8 mg/dL (0.2-1.3) AST 36 U/L (14-36) ALT 30 U/L (6-35) Alkaline Phosphatase 102 U/L (38-126) Troponin I 0.969 H* ng/mL (0.000-0.034)
--- NOTE | 2023-07-23 22:03 | ADMGEN ---
This patient, Olesya Pappas, was admitted to Intensive Care Unit-7. Patient/family oriented to hospital policies and general routines including ID bracelet, bed and alarms, visiting hours, pain management, procedures, bathroom and other care routines, personal items, smoking policy, room service/diet, and visiting hours. Information on how to activate the Rapid Response Team has been discussed. Patient/Family are encouraged to report perceived risks to care and to ask questions if they do not understand what they are told or what they should do.
--- NOTE | 2023-07-23 22:08 | P.PCNANE_ITS ---
Anes - Cent Venous Cath Note Consent: I have discussed with the patient/family/POA, the non-emergent placement of a central venous catheter, including its clinical necessity/indication and associated potential risks and complications. The patient/family/POA understand(s) and acknowledge(s) the need to proceed with central venous catheter insertion as an important element of the patient's clinical management given emergent patient conditions, temporal constraints may have precluded informed consent. Time-Out: A pre-procedural Time-Out was completed immediately before starting the procedure and confirmed: Patient Identification, Site, Procedure, Patient Position and the Availability of Requisite Equipment. Procedure Note Clinical Indications: sepsis critically ill Patient position: supine Central venous catheter insertion site: left internal jugular CVC method of insertion: ultrasound-guided Hand hygiene/Aseptic technique: Hand hygiene procedures were performed. Aseptic technique was maintained throughout the procedure. Sterile barrier precautions: Maximal sterile barrier precautions, including use of a cap, mask, sterile gown, sterile gloves and a sterile full body drape. Site prep: chlorhexidine Skin anesthesia: placed under general anesthesia [place]: 7 Lumen: 3 Length (cm): 20 cm Depth of insertion (cm): 16 Closure/Dressing: suture, biopatch and tegaderm Complications: None immediately noted/suspected. Chest X Ray: Ordered/review to follow. Procedure comments: RIJ accessed under U/S three times resistance to wire pass at about six inches, withdrawn intact each time. LIJ accessed with U/S wire passed catheter place at 16 cm. Pt stable sent to ICU. CXR ordered.
[2023-07-23] MEDS: FENTANYL 2,500MCG/NS250ML(*CRX 2,500 MCG/250 ML BAG IV CONT (22:30)
[2023-07-23] MEDS: MIDAZOLAM 100MG/NS 100ML(*CRX) 100 MG/100 ML BAG IV CONT (22:31)
--- NOTE | 2023-07-23 22:38 | PM.IMHP ---
H&P: HPI History of Present Illness Date/Time: 07/23/23 22:38 Chief Complaint: back pain Narrative: This is a 67-year-old female with past medical history significant for morbid obesity, complex regional pain syndrome, dyslipidemia, GERD. Patient presents to the emergency room due to back pain and not feeling well overall. In emergency room patient had being anuric for several hours unable to give a urine sample. CT of abdomen and pelvis showed a retained UPJ stone. Patient received fluids and was taken to the OR for stent placement. Was unable to been weaned off of ventilator. Patient developed hypotension. Left IJ was placed patient responded to fluids. Preliminary workup was significant for elevated troponins. Currently in ICU. EXAMINATION: CT abdomen pelvis wo con DATE: 07/23/2023 13:45 INDICATION: Left flank pain. Sepsis. TECHNIQUE: Computed tomography (CT) of the abdomen and pelvis was performed without intravenous contrast. The dose-length product was 1493.51 mGy-cm. Automated exposure control and iterative reconstruction technique were employed. COMPARISON: CT dated 06/23/2014. FINDINGS: There is dependent atelectasis. Heart size normal. Large hiatal hernia. There is thickening of the left adrenal gland which may reflect adrenal hyperplasia or underlying adrenal adenoma. There are multiple bilateral nonobstructing renal stones. There is an 8 mm left UPJ stone with hydronephrosis. There is a prominent left umbilical vein. There is a periumbilical hernia containing nonobstructed small bowel. There is moderate fluid throughout the small bowel without obstruction. Status post hysterectomy. Colonic diverticulosis without evidence for diverticulitis. There is an IVC filter present. There is grade 2 spondylolisthesis at L5-S1 secondary to spondylolysis. Moderate lumbar and lower thoracic spondylosis. IMPRESSION: 1. Left UPJ stone measuring 8 mm with moderate hydronephrosis. 2:? Nonobstructing bilateral nephrolithiasis. 3: Large hiatal hernia. 4: Umbilical hernia containing nonobstructed small bowel. EXAMINATION: XR chest 2V DATE: 07/23/2023 13:50 INDICATION: Sepsis. Low back pain. Weakness. TECHNIQUE: Frontal and lateral views of the chest were obtained. COMPARISON: CT abdomen and pelvis 07/23/2023 FINDINGS: There is mild atelectasis in the lower lung zones. No pleural effusion or pneumothorax. Cardiomegaly is noted. There is a large hiatal hernia. IMPRESSION: 1. Mild atelectasis in the lower lung zones. 2. Cardiomegaly. 3. Large hiatal hernia. Review of Systems Review of Systems: ROS unobtainable: Yes unobtainable due to mental status (on ventilator support) [facility] Past Medical History Medical History Acute upper GI bleed Complex regional pain syndrome i of left lower limb Generalized anxiety disorder Hiatal hernia egd : hiatal hernia Left ureteral stone Sepsis Surgical History Surgical History History of partial hysterectomy (~1999) Family History Family History Mother Family history of malignant neoplasm Family history of diabetes mellitus in first degree relative Other Diabetes mellitus Social History Social History Smoking status: Never smoker Alcohol intake: never Substance use: never Lack of Transportation: No Lack of Food: Never True Current Housing: I Have Housing Concerned About Future Housing: No Difficulty Paying Gas/Electric Bills: No Currently Unemployed: No Education: Grade School Difficulty w/ Childcare or Family Care: No Spiritual care concerns: No Meds Home Medications and Allergies Home Medications Medication Instructions Recorded Confirmed Type ascorbate calcium (vitamin C) 500 500 mg PO D
[2023-07-23 22:50] LABS: Hematocrit 28.3 % (37.0-47.0); Hemoglobin 8.6 g/dL (12.0-15.0); Immature Platelet Fraction Pct 6.5 % (0.9-11.2); Mean Corpuscular HGB Conc 30.4 g/dl (32-36); Mean Corpuscular Hemoglobin 29.4 pg (26-34); Mean Corpuscular Volume 96.6 fl (80-100); Mean Platelet Volume 11.6 fl (7.4-10.4); Platelet Count Result 91 k/mm3 (150-375); Red Blood Count 2.93 M/mm3 (4.2-5.4); Red Cell Distribution Width 14.7 % (11.5-14.5); White Blood Count 7.7 K/mm3 (4.5-10.0)
[2023-07-23 22:59] LABS: INR 1.4
[2023-07-23 23:00] LABS: Partial Thromboplastin Time 42.5 SECONDS (22.3-36.8)
[2023-07-23 23:04] LABS: Alanine Aminotransferase 35 U/L (6-35); Albumin Level 3.2 g/dL (3.5-5.1); Alkaline Phosphatase 194 U/L (38-126); Anion Gap 13 mmol/L (8-16); Aspartate Amino Transferase 55 U/L (14-36); Blood Urea Nitrogen 36 mg/dL (7-17); Calcium 7.9 mg/dL (8.4-10.2); Carbon Dioxide 16 mmol/L (22-30); Chloride 109 mmol/L (98-107); Creatine Kinase 260 U/L (30-135); Estimated CRCL calculation 30 ml/min; Estimated Glomerular Filt Rate 22; Glucose 106 mg/dL (65-110); Lactic Acid Reflex 3.3 mmol/L (0.7-2.0); Magnesium 1.5 mg/dL (1.6-2.3); Phosphorus 4.6 mg/dL (2.5-4.5); Sodium 138 mmol/L (137-145)
[2023-07-23 23:13] LABS: Base Excess ABG -9.7 mEq/l (+/-2.0); Carboxyhemoglobin 0.2 % THb (0-2.0); Fractional Inspired Oxygen 50 %; Methemoglobin ABG 0.4 %THb (0-1.5); Oxygen Content ABG 13.2 %vol (16.0-22.0); Oxygen Saturation ABG 92.4 % (95.0-100.0); Oxyhemoglobin 90.9 % THb (90.0-100.0); PCO2 ABG 40.5 mmHg (35.0-45.0); PO2 ABG 73.9 mmHg (80.0-100.0); PO2 FiO2 Ratio Arterial Blood 1.48 %; Reduced Hemoglobin 8.5 %THb (0-5.0); Total Hemoglobin 10.3 g/dL (12.0-18.0)
[2023-07-23 23:14] LABS: Arterial Blood Gas PEEP 8 cmH2O; Arterial Blood Gas Vent Mode CMV; Arterial Blood Gas Ventilator rate 20 /MIN; Device VENTILATOR; Modified Allen's Test Pass; Site Drawn RIGHT RADIAL; pH ABG 7.242 (7.350-7.450)
[2023-07-23 23:15] LABS: Arterial Blood Gas Tidal Volume 40 ml
--- NOTE | 2023-07-23 23:40 | PC.NURSE ---
Dr. Calderón to ICU to check on pt. Reviewed current labs and states that he is ok with pt starting on heparin gtt if that is what Dr. Kim decides to do. Notified Dr. Kim of conversation and new labs. New orders received.
[2023-07-23] MEDS: ASPIRIN 325 MG TABLET PO (23:51)
[2023-07-23] MEDS: MAGNESIUM SULF 2 GM/WATER 50ML 2 GM/50 ML BAG IVPB (23:51)
[2023-07-23] MEDS: SODIUM BICARBONATE 8.4% 50 MEQ/50 ML SYRINGE 100 MEQ IV PUSH (23:59)
[2023-07-24] VITALS (76 sets, daily range): BP systolic 62–157; BP diastolic 27–116; PULSE 63–126; RESP 16–27; TEMP 36.6–38; O2SAT 96–100; BMI 41.4
--- NOTE | 2023-07-24 | ECHO_ITS ---
Patient Info Name: Olesya Pappas Age: 58 years : 1965 Gender: Female Ht: 66 in Wt: 256 lbs BSA: 2.38 m2 HR: 78 bpm BP: 144 / 82 mmHg Heart Rhythm: Sinus Rhythm Technical Quality: Fair Exam Date: 07/24/2023 2:55 PM Exam Location: Echo Lab Exam Room: ICU7 Patient Status: Inpatient Admit Date: 07/23/2023 Staff Ordering Physician: Adalid Moy MD (oswaldo/sandra) Physics Department Chair: Cheli Adames RDCS Attending Provider: Kristen Mcgee MD Referring Physician: Chinmay DUEÑAS; Exam Type: CA echo dop color flow w con Study Info Indications - ELEVATED TROPONONS SEPTIC SHOCK Complete two-dimensional, color flow and Doppler transthoracic echocardiogram is performed with contrast to opacify the left ventricle and to improve the deliniation of the left ventricle endocardial borders. Contrast/Agitated Saline Contrast/Ag. Saline: Definity Amount: 2.00 ml Administered By: Cheli Adames [facility] Existing IV Access: Yes IV Access Condition: patent with no signs of infiltration Summary 1. Definity contrast used to improve visualization. 2. Normal left ventricular size and systolic function. 3. Grade 1 diastolic noncompliance. 4. Small amounts of mitral, pulmonic and tricuspid valve regurgitation. Left Ventricle Left ventricular chamber dimension is normal. Left ventricular systolic function is normal, estimated at 55-60%. The left ventricular diastolic function is grade I diastolic dysfunction. Right Ventricle Right ventricular chamber dimension is normal. Left Atria Left atrial chamber dimension is mildly enlarged. Right Atria Right atrial chamber dimension is normal. Aortic Valve The aortic valve is normal. Pulmonic Valve The pulmonic valve is normal. There is mild pulmonic regurgitation. Mitral Valve The mitral valve has normal leaflets. There is mild mitral valve regurgitation. Tricuspid Valve The tricuspid valve leaflets are normal. There is mild tricuspid valve regurgitation. Pericardium/Pleural The pericardium appears normal. Aorta The aortic root size at the sinus of Valsalva is normal. Left Ventricular Outflow Tract Name Value Normal LVOT 2D LVOT Diameter 2.12 cm LVOT Doppler LVOT Peak Gradient 5 mmHg LVOT Mean Gradient 3 mmHg LVOT VTI 21.98 cm LVOT VTI/AV VTI Ratio 0.97 LVOT Stroke Volume 77.29 ml LVOT CO 16.36 l/min LVOT CI 6.86 L/min/m2 Pulmonic Valve Name Value Normal PV Doppler PV Peak Gradient 2 mmHg Mitral Valve Name Value Normal MV Doppler --------
[2023-07-24] MEDS: HEPARIN SOD/D5W 100 UNITS/ML 25,000 UNITS/250 ML BAG 10 UNITS IV CONT (00:28)
[2023-07-24] MEDS: NOREPINEPHRINE 8 MG/D5W 250 ML 8 MG/250 ML BAG 9.38 MG IV CONT (00:44)
[2023-07-24 01:02] LABS: Glucose Point of Care 93 mg/dl (65-105)
[2023-07-24] MEDS: VASOPRESSIN INJ 100 UNITS in DEXTROSE 5% 95 ML IV CONT (02:00)
[2023-07-24] MEDS: ALBUMIN HUMAN 5% 25 GM/500 ML BTL IV CONT (02:10)
[2023-07-24] MEDS: LACTATED RINGERS 1,000 ML 999 ML IV CONT (02:57)
[2023-07-24] MEDS: EPINEPHrine INJ 1 MG in DEXTROSE 5% IN WATER 250 ML 15.06 MG IV CONT (03:04)
--- NOTE | 2023-07-24 03:13 | PC.NURSE ---
Notified Dr. Kim of pt's continued low BP despite levophed and vasopressin at maximum rates. Also notified that pt has had 50 ml of urinary output since arrival to ICU. New orders received.
[2023-07-24] MEDS: LACTATED RINGERS 1,000 ML 100 ML IV CONT (03:59)
[2023-07-24] MEDS: HYDROCORTISONE SODIUM SUCCINATE 100 MG/2 ML VIAL IV PUSH ×3 (05:09→22:01)
[2023-07-24] MEDS: CENTRAL LINE FLUSH 10 ML IV PUSH ×3 (05:10→22:02)
[2023-07-24 05:20] LABS: Alveolar/Arterial O2 Gradient 191.8 mmHg; Base Excess ABG -13.1 mEq/l (+/-2.0); Carboxyhemoglobin 0.3 % THb (0-2.0); Fractional Inspired Oxygen 50 %; Methemoglobin ABG 0.1 %THb (0-1.5); Oxygen Content ABG 13.1 %vol (16.0-22.0); Oxygen Saturation ABG 98.1 % (95.0-100.0); Oxyhemoglobin 96.8 % THb (90.0-100.0); PO2 ABG 129.8 mmHg (80.0-100.0); Reduced Hemoglobin 2.8 %THb (0-5.0); Total Hemoglobin 9.4 g/dL (12.0-18.0)
[2023-07-24 05:21] LABS: Glucose Point of Care 103 mg/dl (65-105)
[2023-07-24 05:22] LABS: Device VENTILATOR; Modified Allen's Test Unable to perform; Site Drawn RIGHT RADIAL; pH ABG 7.242 (7.350-7.450)
[2023-07-24 05:23] LABS: Arterial Blood Gas PEEP 8 cmH2O; Arterial Blood Gas Tidal Volume 420 ml; Arterial Blood Gas Vent Mode CMV; Arterial Blood Gas Ventilator rate 22 /MIN
[2023-07-24] MEDS: NOREPINEPHRINE 8 MG/D5W 250 ML 8 MG/250 ML BAG 56.25 MG IV CONT (05:40)
[2023-07-24 06:12] LABS: Hematocrit 27.6 % (37.0-47.0); Hemoglobin 8.2 g/dL (12.0-15.0); Immature Platelet Fraction Pct 7.4 % (0.9-11.2); Mean Corpuscular HGB Conc 29.7 g/dl (32-36); Mean Corpuscular Hemoglobin 29.8 pg (26-34); Mean Corpuscular Volume 100.4 fl (80-100); Mean Platelet Volume 12.3 fl (7.4-10.4); Platelet Count Result 92 k/mm3 (150-375); Red Blood Count 2.75 M/mm3 (4.2-5.4); Red Cell Distribution Width 15.1 % (11.5-14.5); White Blood Count 19.7 K/mm3 (4.5-10.0)
[2023-07-24] MEDS: PIPERACILLIN/TAZ 2.25G/NS 50ML 2.25 GM/50 ML BAG IVPB (06:16)
[2023-07-24 06:21] LABS: Alanine Aminotransferase 112 U/L (6-35); Albumin Level 3.3 g/dL (3.5-5.1); Alkaline Phosphatase 107 U/L (38-126); Anion Gap 20 mmol/L (8-16); Aspartate Amino Transferase 172 U/L (14-36); Bilirubin,Total 1.4 mg/dL (0.2-1.3); Blood Urea Nitrogen 39 mg/dL (7-17); Calcium 7.9 mg/dL (8.4-10.2); Carbon Dioxide 13 mmol/L (22-30); Chloride 106 mmol/L (98-107); Estimated CRCL calculation 24 ml/min; Estimated Glomerular Filt Rate 16; Glucose 113 mg/dL (65-110); Magnesium 2.3 mg/dL (1.6-2.3); Potassium 4.2 mmol/L (3.4-5.0); Sodium 139 mmol/L (137-145)
--- NOTE | 2023-07-24 06:21 | ECG_ITS ---
Measurements Intervals [place] Rate: 126 P: SC: 0 QRS: 19 QRSD: 105 T: 28 QT: 326 QTc: 472 Interpretive Statements ATRIAL FLUTTER/TACHYCARDIA WITH RAPID VENTRICULAR RESPONSE NONSPECIFIC ST & T-WAVE ABNORMALITY- ANTEROLAT/INF LEADS ABNORMAL ECG COMPARED TO ECG 07/23/2023 22:09:35 ATRIAL FLUTTER NOW PRESENT Electronically Signed On 07-24-2023 9:15:13 PNEUMATIC HOIST OPERATOR by Everardo Isaac D.O.
[2023-07-24] MEDS: SODIUM BICARBONATE 8.4% 50 MEQ/50 ML SYRINGE 100 MEQ IV PUSH (06:22)
[2023-07-24 06:24] LABS: Lactic Acid Reflex 7.2 mmol/L (0.7-2.0)
[2023-07-24 06:29] LABS: Partial Thromboplastin Time 131.2 SECONDS (22.3-36.8)
--- NOTE | 2023-07-24 07:00 | PC.NURSE ---
EKG obtained. Pt in and out of afib/aflutter. Dr. James aware. No new orders at this time. Dr. James to further review pt's chart.
--- NOTE | 2023-07-24 07:19 | WPDUROPN2 ---
Progress Note: A&P Assessment and Plan (1) Acute hypoxic respiratory failure: Code(s): J96.01 - Acute respiratory failure with hypoxia Status: Acute (2) Left ureteral stone: Code(s): N20.1 - Calculus of ureter Status: Acute (3) Septic shock: Code(s): A41.9 - Sepsis, unspecified organism; R65.21 - Severe sepsis with septic shock Status: Acute (4) Acute UTI: Code(s): N39.0 - Urinary tract infection, site not specified Status: Acute (5) Left nephrolithiasis: Code(s): N20.0 - Calculus of kidney Status: Acute Assessment and Plan: Pt. remains in critical condition. Appreciate everyone's efforts overnight. Little for us to do now until she recovers - will then need definitive stone management (likely ESWL) Subjective Subjective Date/Time Seen: 07/24/23 07:19 Interval history: Intubated, remain on pressor support Review of Systems Review of Systems: ROS unobtainable: Yes unobtainable due to endotracheal tube Exam GI: Inspection: normal to inspection and non-distended Urinary Catheter: Urinary Catheter: patent and draining and urine clear Objective Data Vital Signs Vital Signs: Vital Signs - 24 hr 07/23/23 11:43 07/23/23 12:04 07/23/23 11:53 Temperature 97.7 F Pulse Rate 97 84 Respiratory Rate 16 24 H Blood Pressure 70/46 L 71/45 L Pulse Oximetry 98 96 96 Oxygen Delivery Room Air Fraction of Inspired Oxygen 07/23/23 12:00 07/23/23 12:15 07/23/23 12:26 Temperature Pulse Rate 83 84 85 Respiratory Rate 27 H 23 H 29 H Blood Pressure 78/54 L Pulse Oximetry 97 Oxygen Delivery Fraction of Inspired Oxygen 07/23/23 12:45 07/23/23 12:46 07/23/23 12:53 Temperature Pulse Rate 84 83 88 Respiratory Rate 27 H 19 Blood Pressure 79/57 L 88/55 L 88/55 L Pulse Oximetry 99 99 Oxygen Delivery Fraction of Inspired Oxygen 07/23/23 13:00 07/23/23 13:16 07/23/23 13:30 Temperature Pulse Rate 89 91 88 Respiratory Rate 22 H 21 H 21 H Blood Pressure 97/61 L Pulse Oximetry 93 99 100 Oxygen Delivery Fraction of Inspired Oxygen 07/23/23 13:31 07/23/23 13:32 07/23/23 14:10 Temperature Pulse Rate 89 88 96 Respiratory Rate 18 20 14 Blood Pressure 101/62 Pulse Oximetry 99 100 Oxygen Delivery Fraction of Inspired Oxygen 07/23/23 14:12 07/23/23 14:31 07/23/23 14:45 Temperature Pulse Rate 94 94 92 Respiratory Rate 22 H 13 29 H Blood Pressure 91/58 L 92/57 L 111/76 Pulse Oximetry 97 Oxygen Delivery Fraction of Inspired Oxygen 07/23/23 15:01 07/23/23 15:30 07/23/23 15:57 Temperature Pulse Rate 92 93 94 Respiratory Rate 21 H 18 15 Blood Pressure 98/60 L 103/64 Pulse Oximetry 97 98 Oxygen Delivery Fraction of Inspired Oxygen 07/23/23 16:00 07/23/23 16:01 07/23/23 16:41 Temperature Pulse Rate 90 91 95 Respiratory Rate 18 17 Blood Pressure 103/69 112/60 Pulse Oximetry 99 98 99 Oxygen Delivery Fraction of Inspired Oxygen 07/23/23 16:46 07/23/23 17:00 07/23/23 17:01 Temperature Pulse Rate 92 90 94 Respiratory Rate 20 21 H 22 H Blood Pressure 121/64 99/56 L Pulse Oximetry 97 Oxygen Delivery Fraction of Inspired Oxygen 07/23/23 17:30 07/23/23 17:45 07/23/23 18:00 Temperature Pulse Rate 97 97 94 Respiratory Rate 14 15 19 Blood Pressure 117/55 L Pulse Oximetry 96 Oxygen Delivery Fraction of Inspired Oxygen 07/23/23 18:30 07/23/23 18:46 07/23/23 19:00 Temperature Pulse Rate 97 95 94 Respiratory Rate 20 16 17 Blood Pressure 156/87 H 141/72 H Pulse Oximetry 97 96 Oxygen Delivery Fraction of Inspired Oxygen 07/23/23 19:01 07/23/23 19:27 07/23/23 19:30 Temperature Pulse Rate 98 100 98 Respiratory Rate 20 23 H 20 Blood Pressure 151/78 H 122/75 118/78 Pulse Oximetry 98 98 Oxygen Delivery Fraction of Inspired Oxygen 07/23/23 19:31 07/23/23 19:45 07/23/23
[2023-07-24] MEDS: SODIUM BICARBONATE 8.4% 150 MEQ in WATER, STERILE FOR INJECTION 950 ML 125 MEQ IV CONT ×2 (07:44→15:47)
[2023-07-24 07:56] LABS: Band Neutrophils Percent 33 % (0-6); Eosinophils Absolute Manual 0.39 K/mm3 (0.02-0.5); Eosinophils Percent Manual 2 % (0-4); Lymphocytes Absolute Manual 0.59 K/mm3 (1.1-4.5); Metamyelocytes Percent 6 %; Monocytes Absolute Manual 1.57 K/mm3 (0.1-0.90); Monocytes Percent Manual 8 % (3-9); Neutrophils Absolute Manual 15.95 K/mm3 (1.7-7.2); Neutrophils Percent Manual 48 % (46-73); Platelet Estimate Decreased (Adequate); Schistocytes None Seen (NORMAL); Total Cells Counted 100
[2023-07-24 07:57] LABS: Burr Cells 1+ (NORMAL); Poikilocytosis 1+ (NORMAL)
--- NOTE | 2023-07-24 08:33 | WPDCNINT ---
Assessment and Plan Assessment and plan (1) Acute hypoxic respiratory failure: Code(s): J96.01 - Acute respiratory failure with hypoxia Status: Acute Assessment and Plan: Acute respiratory failure likely related septic shock, status post cystoscopy, pyelogram, left ureteral stent insertion, Byers catheter insertion on 07/23/2023. Patient was intubated for the seizure on 07/23 -currently on CMV mode of ventilation, peep of 8 in 50% FiO2 -chest x-ray and ABGs reviewed -add bronchodilators -continue fentanyl Versed infusion for sedation, maintain RASS of 0 to -2, daily sedation vacation (2) Septic shock: Code(s): A41.9 - Sepsis, unspecified organism; R65.21 - Severe sepsis with septic shock Status: Acute Assessment and Plan: Septic shock likely related to UTI, nephrolithiasis, pyelonephritis -patient was hypotensive, received 3 L IV fluids in the ER and the OR -lactic acid this morning is elevated to 7.2 -started sodium bicarb infusion -remains on Levophed and vasopressin, -off epinephrine -continue stress dose steroids -decreased urine output with worsening renal function -blood and urine cultures have been obtained -patient was on Zosyn and vancomycin, (07/23) -Zosyn was discontinued due to acute kidney injury and started on meropenem.(07/24) (3) Acute non-ST elevation myocardial infarction (NSTEMI): Code(s): I21.4 - Non-ST elevation (NSTEMI) myocardial infarction Status: Acute Assessment and Plan: NSTEMI with elevated troponins likely related to septic shock -patient was started on heparin infusion after discussing with urologist overnight -cardiology has been consulted -EKG showed sinus tachycardia with some ST-T changes multiple leads, no ST elevation elevation -patient also went into AFib RVR for a brief period of time and converted back to sinus rhythm which most likely related to severe acidosis (4) Acute kidney injury: Code(s): N17.9 - Acute kidney failure, unspecified Status: Acute Assessment and Plan: Patient with acute kidney injury likely related to left nephrolithiasis and left hydronephrosis -adequately fluid-resuscitated -lactic acid elevated due to septic shock -started on bicarb infusion -nephrology has been consulted -continue to monitor urine output, renal function and electrolytes (5) Left nephrolithiasis: Code(s): N20.0 - Calculus of kidney Status: Acute Assessment and Plan: left UPJ stone, Cystoscopy, left retrograde pyelogram, left ureteral stent insertion, Byers catheter insertion on 07/23/2023. -neurology following the patient (6) Acute UTI: Code(s): N39.0 - Urinary tract infection, site not specified Status: Acute Assessment and Plan: UA reflective of UTI likely related to left nephrolithiasis and hydronephrosis -continue antibiotics as above, cultures have been obtained and pending (7) Iron deficiency anemia secondary to blood loss (chronic): Code(s): D50.0 - Iron deficiency anemia secondary to blood loss (chronic) Status: Acute Assessment and Plan: Patient with a history of iron deficiency anemia on iron pills at home -continue to monitor hemoglobin Plan DVT prophylaxis: Heparin infusion Stress ulcer prophylaxis: Protonix Nutrition: NPO Code Status: Full code Critical Care Time Spent: 49 minutes Due to a high probability of clinically significant, life threatening deterioration, the patient required my highest level of preparedness to intervene emergently and I personally spent this critical care time directly and personally managing the patient. This critical care time included obtaining a history; examining the patient; pulse oximetry; ordering and review of studies; arranging urgent treatment with development of a management plan; evaluation of patient's response to treatment; frequent reassessment; and discussions with other providers. It was exclusive of [facility]
[2023-07-24] MEDS: MEROPENEM 500 MG in SODIUM CHLORIDE 0.9% IV 100 ML 200 ML IVPB ×2 (09:04→20:33)
[2023-07-24] MEDS: MINERAL OIL/WHITE PETROLATUM OINTMENT 1 APPLIC EACH EYE ×2 (09:06→20:14)
[2023-07-24] MEDS: PANTOPRAZOLE SODIUM IV 40 MG VIAL IV PUSH ×2 (09:06→20:14)
[2023-07-24 09:07] LABS: Reflex Lactic Acid Yes or No Add Lactic
[2023-07-24 10:07] LABS: Lactic Acid 7.6 mmol/L (0.7-2.0)
[2023-07-24] MEDS: SODIUM CHLORIDE 0.9% IV 500 ML IV CONT (10:48)
[2023-07-24] MEDS: NOREPINEPHRINE 8 MG/D5W 250 ML 8 MG/250 ML BAG 45 MG IV CONT (10:54)
--- NOTE | 2023-07-24 12:01 | PM.CNCAR ---
Assessment and Plan Assessment and plan (1) Acute non-ST elevation myocardial infarction (NSTEMI): Code(s): I21.4 - Non-ST elevation (NSTEMI) myocardial infarction Status: Acute Assessment and Plan: Troponin trend of 0.969, 1.920, 2.560, 2.970. EKGs with sinus rhythm without clear ischemic changes. In the setting of septic shock requiring multiple pressors, respiratory failure requiring intubation, KIM, severe metabolic acidosis. Was started on Heparin drip, but concern for bleeding to due to significant anemia, also has thrombocytopenia. Suspect that the elevated troponins are demand ischemia from underlying acute issues. Given concern for bleed, will stop the Heparin drip. Echo ordered. (2) Septic shock: Code(s): A41.9 - Sepsis, unspecified organism; R65.21 - Severe sepsis with septic shock Status: Acute Assessment and Plan: Management as per ICU team. (3) Acute kidney injury: Code(s): N17.9 - Acute kidney failure, unspecified Status: Acute Assessment and Plan: Cr is up to 3 now. (4) Atrial fibrillation with rapid ventricular response: Code(s): I48.91 - Unspecified atrial fibrillation Status: Acute Assessment and Plan: Went into AFIB with RVR this morning, but is now in sinus rhythm. Continue to monitor on tele. [id number] is 1, will not need long-term anticoagulation. Cardiology note from [address] Read mentions possibly atrial fibrillation in the past - unclear if she actually had AFIB or not. Tele here shows clear atrial fibrillation -- will need outpatient follow up for this. Plan Recommendations/Plan discussed with [employer]. History of Present Illness History of Present Illness Consult date/time: 07/24/23 12:01 Requesting physician: Dina Don MD Consult reason: Other (Elevated troponin) Reason For Visit: sick since friday, kidney stone r/o Narrative: We are consulted for elevated troponin. This is a 58 year old female who presented with generalized weakness and flank pain. Was hypotensive on arrival and ill-appearing. Blood pressures initially responded to IVFs, but then required pressors. Found to have initial Cr of 2.5 and lactate of 3.5 Initial troponin of 0.969. CT showed left UPJ stone measuring 8mm with moderate hydronephrosis. She underwent left ureteral stent placement by Urology. Patient is now admitted to the ICU for management of septic shock, she was intubated during procedure. Lactate this morning is 7.2. She is severely acidotic. Patient went into AFIB with RVR overnight. Troponin trend of 0.969, 1.920, 2.560, 2.970. She was started on Heparin drip for NSTEMI. Review of Systems Review of Systems: ROS unobtainable: Yes unobtainable due to endotracheal tube and unobtainable due to medical condition PMFSH Past Medical History Medical History Acute upper GI bleed Complex regional pain syndrome i of left lower limb Generalized anxiety disorder Hiatal hernia egd : hiatal hernia Left ureteral stone Sepsis Surgical History Surgical History History of partial hysterectomy (~1999) Family History Family History Mother Family history of malignant neoplasm Family history of diabetes mellitus in first degree relative Other Diabetes mellitus Social History Social History Smoking status: Never smoker Alcohol intake: never Substance use: never Lack of Transportation: No Lack of Food: Never True Current Housing: I Have Housing Concerned About Future Housing: No Difficulty Paying Gas/Electric Bills: No Currently Unemployed: No Education: Grade School Difficulty w/ Childcare or Family Care: No Spiritual care concerns: No Meds Home Medications and Allergies Home Medications
[2023-07-24 12:41] LABS: Glucose Point of Care 106 mg/dl (65-105)
--- NOTE | 2023-07-24 12:47 | P.CONNP_ITS ---
Assessment and Plan Assessment and plan (1) Acute kidney injury: Code(s): N17.9 - Acute kidney failure, unspecified Status: Acute Assessment and Plan: * presumably secondary to left nephrolithiasis with associated hydronephrosis along with septic shock * normal renal function at baseline (from labs ~ 2 years ago) * concerning with decreased urine output with worsening renal function noted * continue current therapy as outlined * follow repeat labs and UOP (2) Septic shock: Code(s): A41.9 - Sepsis, unspecified organism; R65.21 - Severe sepsis with septic shock Status: Acute Assessment and Plan: * as noted on admission with leukocytosis, hypotension, lactic acidosis and KIM/ARF * secondary to UTI, nephrolithiasis, and possible pyelonephritis * s/p IVF resuscitation - bicarbonate infusion due to acidosis * vasopressor support to maintain MAP/BP * follow culture data * on antibiotics * follow hemodynamics (3) Acute hypoxic respiratory failure: Code(s): J96.01 - Acute respiratory failure with hypoxia Status: Acute Assessment and Plan: * due septic shock and recent operative intervention * ventilator weaning once more stable * follow CXR and ABGs. (4) Acute non-ST elevation myocardial infarction (NSTEMI): Code(s): I21.4 - Non-ST elevation (NSTEMI) myocardial infarction Status: Acute Assessment and Plan: * elevated troponins noted * presumably precipitated by septic shock and demand ischemia from underlying acute issues * Cardiology recommendations noted (5) Left nephrolithiasis: Code(s): N20.0 - Calculus of kidney Status: Acute Assessment and Plan: * Urology following * s/p cystoscopy, left retrograde pyelogram, left ureteral stent insertion and Byers catheter plaement (on 07/23) (6) Iron deficiency anemia secondary to blood loss (chronic): Code(s): D50.0 - Iron deficiency anemia secondary to blood loss (chronic) Status: Acute Assessment and Plan: * known history * suspect hemoglobim may fluctuate further give acute medical issues * follow trend of H/H will continue follow the patient with you while she remains hospitalized and make further recommendations as needed. Thank you for allowing me to participate in the care of this patient. History of Present Illness Reason for Consult Consult date: 07/24/23 Reason for consult: acute renal failure Chief Complaint Chief complaint: sick since friday, kidney stone r/o History of Present Illness Narrative: All the information that I obtained is from review of the electronic medical r ecord as well as discussion with the physician/nurse involved in the patient's care as I am unable to get any history from the patient as she is currently intubated and on mechanical ventilation. The patient is a 58-year-old female with a past medical history as outlined below who presented to [facility] Emergency room yesterday with complaints of left flank pain. Apparently, the left flank pain has been going on for the last 4-5 days in association with diffuse muscle aches, nausea, vomiting, diarrhea, and a general sensation of just feeling poorly. The patient initially had hoped that the symptoms would resolve on their own but they continued to worsen which prompted evaluation in the emergency room. Workup and evaluation in the emergency room demonstrated the patient to be hypotensive on presentation and in mild distress secondary to her above symptoms. She was aggressively fluid resuscitated with IV fl
--- NOTE | 2023-07-24 12:47 | PM.CNNEP ---
Assessment and Plan Assessment and plan (1) Acute kidney injury: Code(s): N17.9 - Acute kidney failure, unspecified Status: Acute Assessment and Plan: presumably secondary to left nephrolithiasis with associated hydronephrosis along with septic shock normal renal function at baseline (from labs ~ 2 years ago) concerning with decreased urine output with worsening renal function noted continue current therapy as outlined follow repeat labs and UOP (2) Septic shock: Code(s): A41.9 - Sepsis, unspecified organism; R65.21 - Severe sepsis with septic shock Status: Acute Assessment and Plan: as noted on admission with leukocytosis, hypotension, lactic acidosis and KIM/ARF secondary to UTI, nephrolithiasis, and possible pyelonephritis s/p IVF resuscitation - bicarbonate infusion due to acidosis vasopressor support to maintain MAP/BP follow culture data on antibiotics follow hemodynamics (3) Acute hypoxic respiratory failure: Code(s): J96.01 - Acute respiratory failure with hypoxia Status: Acute Assessment and Plan: due septic shock and recent operative intervention ventilator weaning once more stable follow CXR and ABGs. (4) Acute non-ST elevation myocardial infarction (NSTEMI): Code(s): I21.4 - Non-ST elevation (NSTEMI) myocardial infarction Status: Acute Assessment and Plan: elevated troponins noted presumably precipitated by septic shock and demand ischemia from underlying acute issues Cardiology recommendations noted (5) Left nephrolithiasis: Code(s): N20.0 - Calculus of kidney Status: Acute Assessment and Plan: Urology following s/p cystoscopy, left retrograde pyelogram, left ureteral stent insertion and Byers catheter plaement (on 07/23) (6) Iron deficiency anemia secondary to blood loss (chronic): Code(s): D50.0 - Iron deficiency anemia secondary to blood loss (chronic) Status: Acute Assessment and Plan: known history suspect hemoglobim may fluctuate further give acute medical issues follow trend of H/H will continue follow the patient with you while she remains hospitalized and make further recommendations as needed. Thank you for allowing me to participate in the care of this patient. History of Present Illness Reason for Consult Consult date: 07/24/23 Reason for consult: acute renal failure Chief Complaint Chief complaint: sick since friday, kidney stone r/o History of Present Illness Narrative: All the information that I obtained is from review of the electronic medical record as well as discussion with the physician/nurse involved in the patient's care as I am unable to get any history from the patient as she is currently intubated and on mechanical ventilation. The patient is a 58-year-old female with a past medical history as outlined below who presented to [facility] Emergency room yesterday with complaints of left flank pain. Apparently, the left flank pain has been going on for the last 4-5 days in association with diffuse muscle aches, nausea, vomiting, diarrhea, and a general sensation of just feeling poorly. The patient initially had hoped that the symptoms would resolve on their own but they continued to worsen which prompted evaluation in the emergency room. Workup and evaluation in the emergency room demonstrated the patient to be hypotensive on presentation and in mild distress secondary to her above symptoms. She was aggressively fluid resuscitated with IV fluids (approximately 3 L) but her blood pressure did not respond. Subsequently, a central line was placed and she was stated on vasopressor therapy to support her blood pressure/MAP. Subsequent testing demonstrated and elevated white blood cell count,acute kidney injury/acute renal failure in association with lactic acidosis and a urinalysis suggestive of urinary tract infection. A CT scan o
[2023-07-24 13:39] LABS: Anion Gap 17 mmol/L (8-16); Blood Urea Nitrogen 45 mg/dL (7-17); Calcium 7.7 mg/dL (8.4-10.2); Carbon Dioxide 19 mmol/L (22-30); Chloride 104 mmol/L (98-107); Estimated CRCL calculation 22 ml/min; Estimated Glomerular Filt Rate 15; Glucose 104 mg/dL (65-110); Potassium 4.6 mmol/L (3.4-5.0); Sodium 140 mmol/L (137-145)
[2023-07-24 13:45] LABS: Alveolar/Arterial O2 Gradient 136.4 mmHg; Base Excess ABG -9.5 mEq/l (+/-2.0); Fractional Inspired Oxygen 45 %; HCO3 ABG 16.1 mEq/l (22.0-26.0); Oxygen Saturation ABG 98.6 % (95.0-100.0); Oxyhemoglobin 97.1 % THb (90.0-100.0); PCO2 ABG 34.4 mmHg (35.0-45.0); PO2 ABG 145.3 mmHg (80.0-100.0); PO2 FiO2 Ratio Arterial Blood 3.23 %; Total Hemoglobin 11.5 g/dL (12.0-18.0)
[2023-07-24 13:48] LABS: Device VENTILATOR; Modified Allen's Test Pass; Site Drawn RIGHT RADIAL; pH ABG 7.289 (7.350-7.450)
[2023-07-24 13:49] LABS: Arterial Blood Gas PEEP 8 cmH2O; Arterial Blood Gas Tidal Volume 420 ml; Arterial Blood Gas Vent Mode CMV; Arterial Blood Gas Ventilator rate 22 /MIN
[2023-07-24] MEDS: LEVALBUTEROL NEB 1.25 MG/3 ML 0.63 MG INHALATION ×2 (13:51→20:08)
[2023-07-24] MEDS: IPRATROPIUM BR 0.02% INH SOLN 0.5 MG/2.5 ML VIAL INHALATION ×2 (13:52→20:09)
[2023-07-24 13:59] LABS: Lactic Acid Reflex 5.7 mmol/L (0.7-2.0)
[2023-07-24] MEDS: PERFLUTREN LIPID MICROSPHERES 1.5 ML VIAL DILUTED TO 10 ML TOTAL VOLUME IV PUSH (15:20)
--- NOTE | 2023-07-24 15:46 | IVDEFINITY ---
Prior to administration of IV Definity the patient was educated on the risks and benefits of the imaging enhancing agent including potential adverse side effects. The patient verbalized understanding. Allergies were verified. No exclusion criteria were identified and at least one of the following inclusion criteria were met: 1) physician request, 2) patient technically difficult to image (per the [place] [employer] guidelines of two or more segments not discernable within the apical view), or 3) questionable left ventricular function. ?
--- NOTE | 2023-07-24 15:56 | PM.IMPN ---
Progress Note: A&P Assessment and Plan (1) Acute hypoxic respiratory failure: Code(s): J96.01 - Acute respiratory failure with hypoxia Status: Acute Assessment and Plan: Acute respiratory failure likely related septic shock, status post cystoscopy, pyelogram, left ureteral stent insertion, Byers catheter insertion on 07/23/2023. Patient was intubated for the seizure on 07/23 as per icu note (2) Septic shock: Code(s): A41.9 - Sepsis, unspecified organism; R65.21 - Severe sepsis with septic shock Status: Acute Assessment and Plan: Septic shock likely related to UTI, nephrolithiasis, pyelonephritis as per icu note Likely secondary to infected urinary tract stone (3) Acute non-ST elevation myocardial infarction (NSTEMI): Code(s): I21.4 - Non-ST elevation (NSTEMI) myocardial infarction Status: Acute Assessment and Plan: NSTEMI with elevated troponins likely related to septic shock as per icu note (4) Acute kidney injury: Code(s): N17.9 - Acute kidney failure, unspecified Status: Acute Assessment and Plan: Patient with acute kidney injury likely related to left nephrolithiasis and left hydronephrosis as per icu note Likely secondary to infected urinary tract stone (5) Left nephrolithiasis: Code(s): N20.0 - Calculus of kidney Status: Acute Assessment and Plan: left UPJ stone, Cystoscopy, left retrograde pyelogram, left ureteral stent insertion, Byers catheter insertion on 07/23/2023. (6) Acute UTI: Code(s): N39.0 - Urinary tract infection, site not specified Status: Acute Assessment and Plan: Likely secondary to infected urinary tract stone (7) Iron deficiency anemia secondary to blood loss (chronic): Code(s): D50.0 - Iron deficiency anemia secondary to blood loss (chronic) Status: Acute Subjective Date/time seen: 07/24/23 15:56 Interval history: This is a 67-year-old female with past medical history significant for morbid obesity, complex regional pain syndrome, dyslipidemia, GERD.? Patient presents to the emergency room due to back pain and not feeling well overall.? In emergency room patient had being anuric for several hours unable to give a urine sample.? CT of abdomen and pelvis showed a retained UPJ stone.? Patient received fluids and was taken to the OR for stent placement.? Was unable to been weaned off of ventilator.? Patient developed hypotension.? Much the same admitted for acute resp failure, septic shock nstemi and kidney stone and uti Review of Systems Review of Systems: Pt intubated in icu Exam Const: General: comfortable, no acute distress, well developed, obese and other (sedated on ventilator support) Nutritional Appearance: obese Orientation/consciousness: patient oriented x3 and Other orientation findings (under sedation on ventilator support.) Resp: Effort & Inspection: normal respiratory effort and able to speak in complete sentences Auscultation: clear to auscultation bilaterally Cardio: Jugular venous distension: no JVD Rate: regular rate Rhythm: regular rhythm Heart sounds: S1 normal heart sound present and S2 normal heart sound present GI: Inspection: Pannus present and obesity Skin: Rashes: no rashes Wounds: no wounds Neuro: General: patient oriented x3, CN's II-XI intact bilaterally, Unable to assess gait and other (sedated on ventilator support) Cranial nerves: Yes CN's II-XII intact bilaterally and Yes Equal, round and reactive pupils present Cognition (Neuro): normal cognition and abnormal cognition (under sedation on ventilator support) Speech: normal speech Gait exam (Neuro): Normal gait present and Unable to assess gait Motor exam (neuro): 5/5 motor strength present throughout Extrem: General: normal to inspection, full ROM, no joint enlargement and no pedal edema Objective Data Vital Signs Vital Signs: Vital Signs - 24 hr 07/23/
[2023-07-24 18:00] LABS: Glucose Point of Care 92 mg/dl (65-105)
[2023-07-24] MEDS: TOLNAFTATE 1% POWDER 45 GM BTL 1 APPLIC TOPICAL (20:42)
[2023-07-24] MEDS: FENTANYL 2,500MCG/NS250ML(*CRX 2,500 MCG/250 ML BAG 10 MCG IV CONT (23:54)
[2023-07-25] VITALS (74 sets, daily range): BP systolic 79–132; BP diastolic 52–90; PULSE 55–133; RESP 15–35; TEMP 36.1–37.1; O2SAT 93–100
[2023-07-25 00:04] LABS: Glucose Point of Care 97 mg/dl (65-105)
[2023-07-25] MEDS: SODIUM BICARBONATE 8.4% 150 MEQ in WATER, STERILE FOR INJECTION 950 ML 125 MEQ IV CONT (00:36)
[2023-07-25] MEDS: IPRATROPIUM BR 0.02% INH SOLN 0.5 MG/2.5 ML VIAL INHALATION ×4 (01:43→20:22)
[2023-07-25] MEDS: LEVALBUTEROL NEB 1.25 MG/3 ML 0.63 MG INHALATION ×4 (01:43→20:22)
[2023-07-25] MEDS: HYDROCORTISONE SODIUM SUCCINATE 100 MG/2 ML VIAL IV PUSH ×3 (05:13→21:07)
[2023-07-25] MEDS: CENTRAL LINE FLUSH 10 ML IV PUSH ×3 (05:13→21:13)
[2023-07-25 05:23] LABS: Glucose Point of Care 125 mg/dl (65-105)
[2023-07-25 06:31] LABS: Alveolar/Arterial O2 Gradient 90.1 mmHg; Base Excess ABG 3.4 mEq/l (+/-2.0); Carboxyhemoglobin 1.1 % THb (0-2.0); Fractional Inspired Oxygen 30 %; HCO3 ABG 26.9 mEq/l (22.0-26.0); Methemoglobin ABG 0.4 %THb (0-1.5); Oxygen Content ABG 8.9 %vol (16.0-22.0); Oxygen Saturation ABG 96.9 % (95.0-100.0); Oxyhemoglobin 93.2 % THb (90.0-100.0); PCO2 ABG 35.4 mmHg (35.0-45.0); PO2 ABG 82.2 mmHg (80.0-100.0); PO2 FiO2 Ratio Arterial Blood 2.74 %; Reduced Hemoglobin 5.3 %THb (0-5.0); pH ABG 7.498 (7.350-7.450)
[2023-07-25 06:32] LABS: Arterial Blood Gas Ventilator rate 22 /MIN; Device VENTILATOR; Modified Allen's Test Pass; Site Drawn LEFT RADIAL; Total Hemoglobin 6.7 g/dL (12.0-18.0)
[2023-07-25 06:33] LABS: Arterial Blood Gas PEEP 8 cmH2O; Arterial Blood Gas Tidal Volume 420 ml; Arterial Blood Gas Vent Mode CMV
[2023-07-25 06:48] LABS: Hematocrit 22.5 % (37.0-47.0); Hemoglobin 7.1 g/dL (12.0-15.0); Immature Platelet Fraction Pct 8.3 % (0.9-11.2); Mean Corpuscular HGB Conc 31.6 g/dl (32-36); Mean Corpuscular Hemoglobin 29.6 pg (26-34); Mean Corpuscular Volume 93.8 fl (80-100); Mean Platelet Volume 12.8 fl (7.4-10.4); Platelet Count Result 58 k/mm3 (150-375); Red Cell Distribution Width 15.1 % (11.5-14.5); White Blood Count 11.2 K/mm3 (4.5-10.0)
[2023-07-25 06:53] LABS: Lactic Acid Reflex 2.5 mmol/L (0.7-2.0)
--- NOTE | 2023-07-25 07:10 | WPDUROPN2 ---
Progress Note: A&P Assessment and Plan (1) Acute hypoxic respiratory failure: Code(s): J96.01 - Acute respiratory failure with hypoxia Status: Acute (2) Left ureteral stone: Code(s): N20.1 - Calculus of ureter Status: Acute (3) Septic shock: Code(s): A41.9 - Sepsis, unspecified organism; R65.21 - Severe sepsis with septic shock Status: Acute (4) Acute UTI: Code(s): N39.0 - Urinary tract infection, site not specified Status: Acute (5) Left nephrolithiasis: Code(s): N20.0 - Calculus of kidney Status: Acute Assessment and Plan: Encouraging improvement over last 24-hours. Little for us to do now until she recovers - will then need definitive stone management (likely ESWL) Subjective Subjective Date/Time Seen: 07/25/23 07:11 Interval history: Progress noted - Review of Systems Review of Systems: ROS unobtainable: Yes unobtainable due to endotracheal tube Exam GI: GI Palp: No abdominal tenderness, Yes Soft to palpation and No Tenderness to palpation present (GI) Urinary Catheter: Urinary Catheter: patent and draining and urine clear Objective Data Vital Signs Vital Signs: Vital Signs - 24 hr 07/24/23 07:23 07/24/23 07:50 07/24/23 08:51 Temperature Pulse Rate 86 89 86 Respiratory Rate Blood Pressure 123/69 116/70 Pulse Oximetry 100 Oxygen Delivery Mechanical Ventilation Fraction of Inspired Oxygen 45 07/24/23 09:03 07/24/23 08:00 07/24/23 08:00 Temperature Pulse Rate 90 86 84 Respiratory Rate 22 H Blood Pressure 128/73 Pulse Oximetry 100 Oxygen Delivery Mechanical Ventilation Fraction of Inspired Oxygen 50 07/24/23 09:50 07/24/23 10:48 07/24/23 10:54 Temperature Pulse Rate 86 82 82 Respiratory Rate Blood Pressure 136/67 142/69 H 142/69 H Pulse Oximetry Oxygen Delivery Fraction of Inspired Oxygen 07/24/23 11:19 07/24/23 11:36 07/24/23 08:00 Temperature Pulse Rate 85 81 Respiratory Rate Blood Pressure 150/75 H 144/73 H Pulse Oximetry Oxygen Delivery Fraction of Inspired Oxygen 50 07/24/23 08:00 07/24/23 10:00 07/24/23 10:00 Temperature 98.0 F Pulse Rate 86 84 84 Respiratory Rate 22 H 19 Blood Pressure 121/63 135/65 Pulse Oximetry 100 100 Oxygen Delivery Fraction of Inspired Oxygen 07/24/23 11:46 07/24/23 12:00 07/24/23 12:07 Temperature Pulse Rate Respiratory Rate Blood Pressure 149/79 H 153/78 H 143/82 H Pulse Oximetry Oxygen Delivery Fraction of Inspired Oxygen 07/24/23 12:05 07/24/23 12:09 07/24/23 12:35 Temperature Pulse Rate 86 86 Respiratory Rate 26 H 27 H Blood Pressure 144/82 H Pulse Oximetry Oxygen Delivery Fraction of Inspired Oxygen 07/24/23 12:38 07/24/23 12:52 07/24/23 13:13 Temperature Pulse Rate 78 Respiratory Rate 16 Blood Pressure 140/81 141/76 H Pulse Oximetry Oxygen Delivery Fraction of Inspired Oxygen 07/24/23 12:35 07/24/23 13:23 07/24/23 13:43 Temperature Pulse Rate Respiratory Rate Blood Pressure 144/82 H 144/80 H 132/74 Pulse Oximetry Oxygen Delivery Fraction of Inspired Oxygen 07/24/23 13:40 07/24/23 13:52 07/24/23 12:00 Temperature Pulse Rate 74 74 83 Respiratory Rate 23 H Blood Pressure Pulse Oximetry 100 Oxygen Delivery Mechanical Ventilation Fraction of Inspired Oxygen 45 07/24/23 12:00 07/24/23 12:00 07/24/23 12:00 Temperature 98.6 F Pulse Rate 83 83 Respiratory Rate 21 H 21 H Blood Pressure 153/78 H Pulse Oximetry 100 100 Oxygen Delivery Mechanical Ventilation Fraction of Inspired Oxygen 45 45 07/24/23 14:00 07/24/23 14:00 07/24/23 14:05 Temperature Pulse Rate 75 75 Respiratory Rate 22 H Blood Pressure 143/79 H 143/79 H Pulse Oximetry 100 Oxygen Delivery Fraction of Inspired Oxygen 07/24/23 14:39 07/24/23 15:03 07/24/23 15:1
[2023-07-25 07:31] LABS: Albumin Level 2.7 g/dL (3.5-5.1); Alkaline Phosphatase 85 U/L (38-126); Anion Gap 9 mmol/L (8-16); Bilirubin,Total 1.3 mg/dL (0.2-1.3); Blood Urea Nitrogen 63 mg/dL (7-17); Calcium 6.8 mg/dL (8.4-10.2); Carbon Dioxide 28 mmol/L (22-30); Chloride 99 mmol/L (98-107); Estimated CRCL calculation 19 ml/min; Estimated Glomerular Filt Rate 12; Glucose 125 mg/dL (65-110); Magnesium 2.2 mg/dL (1.6-2.3); Potassium 3.6 mmol/L (3.4-5.0); Sodium 136 mmol/L (137-145)
[2023-07-25 07:45] LABS: Alanine Aminotransferase 878 U/L (6-35); Aspartate Amino Transferase 953 U/L (14-36)
[2023-07-25 08:05] LABS: Band Neutrophils Percent 23 % (0-6); Lymphocytes Absolute Manual 1.45 K/mm3 (1.1-4.5); Metamyelocytes Percent 6 %; Neutrophils Absolute Manual 9.07 K/mm3 (1.7-7.2); Neutrophils Percent Manual 58 % (46-73); Platelet Estimate Decreased (Adequate); Schistocytes None Seen (NORMAL); Total Cells Counted 100
[2023-07-25 08:06] LABS: Toxic Granulation Present (NORMAL)
[2023-07-25 08:11] LABS: Hypochromasia 2+ (NORMAL)
--- NOTE | 2023-07-25 08:37 | WPDINTPN ---
Progress Note: A&P Assessment and Plan (1) Acute hypoxic respiratory failure: Code(s): J96.01 - Acute respiratory failure with hypoxia Status: Acute Assessment and Plan: Acute respiratory failure likely related septic shock, status post cystoscopy, pyelogram, left ureteral stent insertion, Byers catheter insertion on 07/23/2023. Patient was intubated for the seizure on 07/23 -currently on CMV mode of ventilation, peep of 8 and 30% FiO2 -chest x-ray and ABGs reviewed -continue bronchodilators -continue fentanyl Versed infusion for sedation, maintain RASS of 0 to -2, daily sedation vacation (2) Septic shock: Code(s): A41.9 - Sepsis, unspecified organism; R65.21 - Severe sepsis with septic shock Status: Acute Assessment and Plan: Septic shock likely related to UTI, nephrolithiasis, pyelonephritis -patient was hypotensive, received 3 L IV fluids in the ER and the OR -lactic acid improving, 2.5 this morning -CO2 on BMP a has improved, will discontinue sodium bicarbonate -patient off epinephrine, vasopressin. -patient was off Levophed but had to be restarted earlier this morning on 07/25 as she was hypotensive -continue stress dose steroids -mild improvement in urine output but worsening renal function -07/23/2023: Blood cultures growing Gram-negative bacilli / bottles -07/23/2023 urine culture: No growth - continue vancomycin, (07/23) and meropenem(07/24) -improvement in WBC count and bandemia (3) Acute non-ST elevation myocardial infarction (NSTEMI): Code(s): I21.4 - Non-ST elevation (NSTEMI) myocardial infarction Status: Acute Assessment and Plan: NSTEMI with elevated troponins likely related to septic shock -patient was started on heparin infusion after discussing with urologist overnight -appreciate cardiology consult -EKG showed sinus tachycardia with some ST-T changes multiple leads, no ST elevation elevation -patient also went into AFib RVR for a brief period of time and converted back to sinus rhythm which most likely related to severe acidosis -heparin infusion was discontinued after discussing with Cardiology as it was thought that she went into AFib secondary to underlying issues and given that she has been thrombocytopenic and anemic (4) Acute kidney injury: Code(s): N17.9 - Acute kidney failure, unspecified Status: Acute Assessment and Plan: Patient with acute kidney injury likely related to left nephrolithiasis and left hydronephrosis -adequately fluid-resuscitated -lactic acid is trending down well -discontinue bicarb infusion as his CO2 has improved on the BMP -appreciate nephrology evaluation and recommendation -continue to monitor urine output, renal function and electrolytes (5) Left nephrolithiasis: Code(s): N20.0 - Calculus of kidney Status: Acute Assessment and Plan: left UPJ stone, Cystoscopy, left retrograde pyelogram, left ureteral stent insertion, Byers catheter insertion on 07/23/2023. -urology following the patient (6) Acute UTI: Code(s): N39.0 - Urinary tract infection, site not specified Status: Acute Assessment and Plan: UA reflective of UTI likely related to left nephrolithiasis and hydronephrosis -continue antibiotics as above, cultures as above (7) Iron deficiency anemia secondary to blood loss (chronic): Code(s): D50.0 - Iron deficiency anemia secondary to blood loss (chronic) Status: Acute Assessment and Plan: Patient with a history of iron deficiency anemia on iron pills at home -continue to monitor hemoglobin /: Hemoglobin 7.1 this morning, transfuse 1 unit of packed RBCs -will consult GI (8) Atrial fibrillation: Code(s): I48.91 - Unspecified atrial fibrillation Status: Acute Assessment and Plan: Patient went to AFib again this morning, and remains in AFib with heart rates in the 100s -will not start any anticoagulation at this time given patient
[2023-07-25] MEDS: TOLNAFTATE 1% POWDER 45 GM BTL 1 APPLIC TOPICAL ×2 (08:40→21:13)
[2023-07-25] MEDS: PANTOPRAZOLE SODIUM IV 40 MG VIAL IV PUSH ×2 (08:40→21:06)
[2023-07-25] MEDS: MEROPENEM 500 MG in SODIUM CHLORIDE 0.9% IV 100 ML 200 ML IVPB ×2 (08:41→21:11)
[2023-07-25] MEDS: ALBUMIN HUMAN 25% 25 GM/100 ML 100 ML IVPB ×3 (08:41→17:10)
[2023-07-25] MEDS: MINERAL OIL/WHITE PETROLATUM OINTMENT 1 APPLIC EACH EYE ×2 (08:41→21:11)
--- NOTE | 2023-07-25 08:50 | ECG_ITS ---
Measurements Intervals Pride Rate: 109 P: NH: 0 QRS: 5 QRSD: 101 T: 15 QT: 375 QTc: 507 Interpretive Statements ATRIAL FIBRILLATION WITH RAPID VENTRICULAR RESPONSE ABNORMAL RHYTHM ECG INTERPRETATION BASED ON A DEFAULT AGE OF 40 YEARS COMPARED TO ECG 07/24/2023 06:41:22 ATRIAL FIBRILLATION NOW PRESENT Electronically Signed On 07-25-2023 13:28:17 [employer] by Allan Slater M.D.
--- NOTE | 2023-07-25 09:30 | P.PNNP_ITS ---
Progress Note: A&P Assessment and Plan (1) Acute kidney injury: Code(s): N17.9 - Acute kidney failure, unspecified Status: Acute Assessment and Plan: * presumably secondary to left nephrolithiasis with associated hydronephrosis along with septic shock * normal renal function at baseline (from labs ~ 2 years ago) * concerning with decreased urine output with worsening renal function noted * continue current therapy as outlined * follow repeat labs and UOP (2) Septic shock: Code(s): A41.9 - Sepsis, unspecified organism; R65.21 - Severe sepsis with septic shock Status: Acute Assessment and Plan: * as noted on admission with leukocytosis, hypotension, lactic acidosis and KIM/ARF * secondary to UTI, nephrolithiasis, and possible pyelonephritis * s/p IVF resuscitation * vasopressor support to maintain MAP/BP * follow culture data - results noted * on antibiotics * follow hemodynamics (3) Acute hypoxic respiratory failure: Code(s): J96.01 - Acute respiratory failure with hypoxia Status: Acute Assessment and Plan: * due septic shock and recent operative intervention * ventilator weaning once more stable * follow CXR and ABGs. (4) Acute non-ST elevation myocardial infarction (NSTEMI): Code(s): I21.4 - Non-ST elevation (NSTEMI) myocardial infarction Status: Acute Assessment and Plan: * elevated troponins noted * presumably precipitated by septic shock and demand ischemia from underlying acute medical issues * Cardiology recommendations noted (5) Left nephrolithiasis: Code(s): N20.0 - Calculus of kidney Status: Acute Assessment and Plan: * Urology following * s/p cystoscopy, left retrograde pyelogram, left ureteral stent insertion and Byers catheter plaement (on 07/23) (6) Iron deficiency anemia secondary to blood loss (chronic): Code(s): D50.0 - Iron deficiency anemia secondary to blood loss (chronic) Status: Acute Assessment and Plan: * known history * suspect hemoglobin may fluctuate further give acute medical issues * follow trend of H/H Will continue to follow. Subjective Date/time seen: 07/25/23 09:30 Interval history: Follow-up for acute kidney injry/acute renal failure. Renal function a bit worse but some improvement in urine output noted; remains intubated/sedated and on mechanical ventilation; off vasopressin but levophed restarted earlier today due to drop in BP; acidosis has improved and bicarb IVFs discontinued; also off heparin at this time as well. Exam Narrative: General: large but WD/WN female intubated/sedated on mechanical ventilation Heart: normal S1 and S2; no rub Lungs: coarse breath sounds noted Abdomen: soft, nontender, nondistended, positive bowel sounds Extremities: no cyanosis or clubbing; trace edema Skin: warm and dry Objective Data Vital Signs Vital Signs: Vital Signs Temp Pulse Resp BP Pulse Ox O2 Del Method FiO2 07/25/23 08:41 109 H 91/61 L 07/25/23 08:00 98.6 F 58 L 22 H 96/62 L 96 Mechanical Ventilation 30 07/25/23 08:00 61 18 07/25/23 08:00 61 92/59 L 07/25/23 08:00 61 18 07/25/23 07:15 58 L 22 H 07/25/23 07:05 57 L 22 H 07/25/23 07:05 57 L 97 Mechanical Ventilation 30 07/25/23 04:00 93
--- NOTE | 2023-07-25 09:30 | PM.PNNEP ---
Progress Note: A&P Assessment and Plan (1) Acute kidney injury: Code(s): N17.9 - Acute kidney failure, unspecified Status: Acute Assessment and Plan: presumably secondary to left nephrolithiasis with associated hydronephrosis along with septic shock normal renal function at baseline (from labs ~ 2 years ago) concerning with decreased urine output with worsening renal function noted continue current therapy as outlined follow repeat labs and UOP (2) Septic shock: Code(s): A41.9 - Sepsis, unspecified organism; R65.21 - Severe sepsis with septic shock Status: Acute Assessment and Plan: as noted on admission with leukocytosis, hypotension, lactic acidosis and KIM/ARF secondary to UTI, nephrolithiasis, and possible pyelonephritis s/p IVF resuscitation vasopressor support to maintain MAP/BP follow culture data - results noted on antibiotics follow hemodynamics (3) Acute hypoxic respiratory failure: Code(s): J96.01 - Acute respiratory failure with hypoxia Status: Acute Assessment and Plan: due septic shock and recent operative intervention ventilator weaning once more stable follow CXR and ABGs. (4) Acute non-ST elevation myocardial infarction (NSTEMI): Code(s): I21.4 - Non-ST elevation (NSTEMI) myocardial infarction Status: Acute Assessment and Plan: elevated troponins noted presumably precipitated by septic shock and demand ischemia from underlying acute medical issues Cardiology recommendations noted (5) Left nephrolithiasis: Code(s): N20.0 - Calculus of kidney Status: Acute Assessment and Plan: Urology following s/p cystoscopy, left retrograde pyelogram, left ureteral stent insertion and Byers catheter plaement (on 07/23) (6) Iron deficiency anemia secondary to blood loss (chronic): Code(s): D50.0 - Iron deficiency anemia secondary to blood loss (chronic) Status: Acute Assessment and Plan: known history suspect hemoglobin may fluctuate further give acute medical issues follow trend of H/H Will continue to follow. Subjective Date/time seen: 07/25/23 09:30 Interval history: Follow-up for acute kidney injry/acute renal failure. Renal function a bit worse but some improvement in urine output noted; remains intubated/sedated and on mechanical ventilation; off vasopressin but levophed restarted earlier today due to drop in BP; acidosis has improved and bicarb IVFs discontinued; also off heparin at this time as well. Exam Narrative: General: large but WD/WN female intubated/sedated on mechanical ventilation Heart: normal S1 and S2; no rub Lungs: coarse breath sounds noted Abdomen: soft, nontender, nondistended, positive bowel sounds Extremities: no cyanosis or clubbing; trace edema Skin: warm and dry Objective Data Vital Signs Vital Signs: Vital Signs Temp Pulse Resp BP Pulse Ox O2 Del Method FiO2 07/25/23 08:41 109 H 91/61 L 07/25/23 08:00 98.6 F 58 L 22 H 96/62 L 96 Mechanical Ventilation 30 07/25/23 08:00 61 18 07/25/23 08:00 61 92/59 L 07/25/23 08:00 61 18 07/25/23 07:15 58 L 22 H 07/25/23 07:05 57 L 22 H 07/25/23 07:05 57 L 97 Mechanical Ventilation 30 07/25/23 04:00 93 07/25/23 06:00 95 07/25/23 05:59 61 96 Mechanical Ventilation 30 07/25/23 06:00 98.8 F 64 22 H 88/58 L 07/25/23 06:00 62 07/25/23 06:32 60 79/52 L 07/25/23 05:34 59 L 22 H 07/25/23 05:33 59 L 88/55 L 07/25/23 05:31 59 L 22 H 07/25/23 04:00 97.6 F 68 22 H 88/54 L 07/25/23 04:00 40 07/25/23 04:00 63 22 H 99 Mechanical Ventilation 35 07/25/23 04:00 63 07/25/23 02:00 98.3 F 88 35 H 132/68 98 07/25/23 01:57 61 22 H 07/25/23 01:50 62 96 Mechanical Ventilation 35 07/25/23 02:38 64 107
[2023-07-25 09:43] LABS: Reflex Lactic Acid Yes or No Add Lactic
[2023-07-25 09:56] LABS: Hepatitis B Surface Antigen Negative (Negative)
[2023-07-25 09:58] LABS: Iron 44 ug/dL (37-170)
[2023-07-25 10:02] LABS: HAV RESULT Negative (Negative); Hepatitis B Core IgM Result Negative (Negative)
[2023-07-25 10:11] LABS: Percent Iron Saturation 21 % (20-50)
[2023-07-25 10:13] LABS: Hepatitis C Virus Antibody Negative (Negative)
[2023-07-25 10:51] LABS: Folic Acid > 20.0 ng/mL (2.76->20); Vitamin B12 > 1000.0 pg/mL (239-931)
[2023-07-25] MEDS: SODIUM CHLORIDE 0.9% IV 250 ML 30 ML IV CONT (11:34)
--- NOTE | 2023-07-25 11:44 | PCNFU ---
Nutrition Follow-Up Complete: Inadequate Oral Intake as related to mechanical ventilation as evidenced by NPO. goal: Meet estimated nutritional needs Patient is progressing towards goal. We will continue current goal. Pt current nutrition is Nepro at 20 ml/hr. Nutrition recommendation: goal rate at this time 40 ml/hr. Last recorded weight is 116 kg-stable. Bowel Motility:+Bm reported 07/23 Labs Reviewed:Glu 125, Cr 3.8,GFR 12, BUN 63, Na 136, Hct 22.5,Hgb 7.1 Meds Noted:Fentanyl, Versed, Heparin,Levophed, NS, Protonix Skin: WNL Additional Notes:Patient remains on mechanical vent. Patient requiring less pressure support, plans to start nutrition today. Tube feeding recommendations: Nepro at 20 ml/hr advance by 10 ml q 4 hours to goal rate of 40 ml/hr (70% EER). Tube feedings at goal rate meeting 1584 kcals/72 gms protein/640 ml water. Flush 30 ml q 4 hours. Will monitor, weight,labs, skin, feeding every Friday and Friday.
[2023-07-25 12:15] LABS: Glucose Point of Care 102 mg/dl (65-105)
--- NOTE | 2023-07-25 12:16 | PM.IMPN ---
Progress Note: A&P Assessment and Plan (1) Acute hypoxic respiratory failure: Code(s): J96.01 - Acute respiratory failure with hypoxia Status: Acute Assessment and Plan: Acute respiratory failure likely related septic shock, status post cystoscopy, pyelogram, left ureteral stent insertion, Byers catheter insertion on 07/23/2023. Patient was intubated for the seizure on 07/23 some period of cyanosis in ED Pt is intubated, ICU MD rounding. (2) Septic shock: Code(s): A41.9 - Sepsis, unspecified organism; R65.21 - Severe sepsis with septic shock Status: Acute Assessment and Plan: Septic shock likely related to UTI, nephrolithiasis, pyelonephritis as per icu note Likely secondary to infected urinary tract stone Continue iv Merrem and iv vancomycin Continue vasopressors for Bp support including levoped Continue iv steroids (3) Acute non-ST elevation myocardial infarction (NSTEMI): Code(s): I21.4 - Non-ST elevation (NSTEMI) myocardial infarction Status: Acute Assessment and Plan: NSTEMI with elevated troponins likely related to septic shock as per icu note (4) Acute kidney injury: Code(s): N17.9 - Acute kidney failure, unspecified Status: Acute Assessment and Plan: Patient with acute kidney injury likely related to left nephrolithiasis and left hydronephrosis as per icu note Likely secondary to infected urinary tract stone pt was on sodium bicarbonate drip now on vasopressin and albumin (5) Left nephrolithiasis: Code(s): N20.0 - Calculus of kidney Status: Acute Assessment and Plan: left UPJ stone, Cystoscopy, left retrograde pyelogram, left ureteral stent insertion, Byers catheter insertion on 07/23/2023. (6) Acute UTI: Code(s): N39.0 - Urinary tract infection, site not specified Status: Acute Assessment and Plan: Likely secondary to infected urinary tract stone (7) Iron deficiency anemia secondary to blood loss (chronic): Code(s): D50.0 - Iron deficiency anemia secondary to blood loss (chronic) Status: Acute Assessment and Plan: Hb is 7- tranfuse one unit of blood (8) Elevated LFTs: Code(s): R79.89 - Other specified abnormal findings of blood chemistry Status: Acute Assessment and Plan: Transaminitis secondary to sepsis and shock to the liver (9) Atrial fibrillation: Code(s): I48.91 - Unspecified atrial fibrillation Status: Acute Assessment and Plan: Await cardiology recommendations, heart rate in the 60s Subjective Date/time seen: 07/25/23 12:16 Interval history: This is a 67-year-old female with past medical history significant for morbid obesity, complex regional pain syndrome, dyslipidemia, GERD.? Patient presents to the emergency room due to back pain and not feeling well overall.? In emergency room patient had being anuric for several hours unable to give a urine sample.? CT of abdomen and pelvis showed a retained UPJ stone.? Patient received fluids and was taken to the OR for stent placement.? Was unable to been weaned off of ventilator.? Patient developed hypotension.? Much the same admitted for acute resp failure, septic shock nstemi and kidney stone and uti Review of Systems Review of Systems: Pt intubated in icu ROS unobtainable: Yes unobtainable due to mental status (on ventilator support) Exam Const: General: comfortable, no acute distress, well developed, obese and other (sedated on ventilator support) Nutritional Appearance: obese Orientation/consciousness: patient oriented x3 and Other orientation findings (under sedation on ventilator support.) Eyes: Pupils: Equal, round and reactive pupils present Resp: Effort & Inspection: normal respiratory effort and able to speak in complete sentences Auscultation: clear to auscultation bilaterally Cardio: Jugular venous distension: no JVD Rate: regular rate Rhythm
[2023-07-25] MEDS: NOREPINEPHRINE 8 MG/D5W 250 ML 8 MG/250 ML BAG 5.63 MG IV CONT (14:09)
[2023-07-25] MEDS: MIDAZOLAM 100MG/NS 100ML(*CRX) 100 MG/100 ML BAG IV CONT (14:49)
--- NOTE | 2023-07-25 16:25 | WPDGICN ---
Assessment and Plan Assessment and plan (1) Anemia: Code(s): D64.9 - Anemia, unspecified Status: Acute Assessment and Plan: Patient is chronically anemic. Apparently has had bone marrow studies done in the past. Currently suspicious this is likely due to kidney disease. No signs of GI blood loss encounter. She does have a distant history of esophageal ulcer. For this reason maintaining patient on pantoprazole or other PPI may be prudent. Invasive testing not indicated in this patient present. Stool Hemoccult will be obtained. Patient currently at risk for stress ulcer given her significant comorbid disease. (2) Left ureteral stone: Code(s): N20.1 - Calculus of ureter Status: Acute Assessment and Plan: Patient with ureteral stone subsequent hydronephrosis. (3) Septic shock: Code(s): A41.9 - Sepsis, unspecified organism; R65.21 - Severe sepsis with septic shock Status: Acute Assessment and Plan: Currently in the ICU with septic shock. (4) Acute hypoxic respiratory failure: Code(s): J96.01 - Acute respiratory failure with hypoxia Status: Acute Assessment and Plan: Patient remains on ventilator. Question of recent MIs noted. (5) Morbid obesity with BMI of 40.0-44.9, adult: Code(s): E66.01 - Morbid (severe) obesity due to excess calories; Z68.41 - Body mass index [BMI] 40.0-44.9, adult Status: Acute (6) Atrial fibrillation with rapid ventricular response: Code(s): I48.91 - Unspecified atrial fibrillation Status: Acute (7) GERD with esophagitis: Code(s): K21.0 - Gastro-esophageal reflux disease with esophagitis Status: Acute (8) Elevated LFTs: Code(s): R79.89 - Other specified abnormal findings of blood chemistry Status: Acute Assessment and Plan: Elevated serum transaminases to the 800-900 range suggest patient may have shock liver . This likely related to hypertensive episode associated with her sepsis and shock. Continue monitor conservatively at this point. (9) ARF (acute renal failure): Code(s): N17.9 - Acute kidney failure, unspecified Status: Acute Assessment and Plan: Patient with elevated BUN and creatinine felt to have acute renal insufficiency. ATN is suspected initially. Workup in treatment by [facility]products maker service. GI Consult Note Consult date/time: 07/25/23 16:25 Reason for consult: Anemia HPI: Olesya Pappas is a 58 year old female I am asked to see at the request of the hospitalist service. Patient initially presented to the hospital several days ago. She was not feeling well overall. She became an uric not producing urine and presented to the emergency room. She was found to have hydronephrosis with an obstruction ureteral stone. She underwent cystoscopy. Ultimately felt to be septic from urinary tract infection and sent to the emergency room where she is now intubated on pressors. It is felt that the patient likely had an acute TX as well as being septic. She is currently unable to give any additional history. The family present today states that she is chronically anemic. They deny any recent signs of blood loss. They did notice some blood in the Byers catheter after her cystoscopy. She has had no blood in her stools. She has had no specific abdominal pain recently. Several years ago in [place] she was found to have esophagitis with an esophageal ulcer felt be on the basis of acid reflux. Family states she is chronically anemic and this has been attributed to her kidney disease. Review of Systems Review of Systems: ROS unobtainable: Yes unobtainable due to medical condition PMFSH Past Medical History Medical History Acute upper GI bleed Complex regional pain syndrome i of left lower limb Generalized anxiety disorder Hiatal hernia egd .22: hiatal hernia Lef
[2023-07-25 18:18] LABS: Glucose Point of Care 122 mg/dl (65-105)
[2023-07-25] MEDS: CENTRAL LINE FLUSH 20 ML IV PUSH (21:13)
[2023-07-26] VITALS (33 sets, daily range): BP systolic 104–154; BP diastolic 63–97; PULSE 56–151; RESP 15–22; TEMP 36.4–36.9; O2SAT 93–98
[2023-07-26] MEDS: ALBUMIN HUMAN 25% 25 GM/100 ML 100 ML IVPB (00:48)
[2023-07-26 01:12] LABS: Glucose Point of Care 140 mg/dl (65-105)
[2023-07-26] MEDS: LEVALBUTEROL NEB 1.25 MG/3 ML 0.63 MG INHALATION ×4 (03:11→21:13)
[2023-07-26] MEDS: IPRATROPIUM BR 0.02% INH SOLN 0.5 MG/2.5 ML VIAL INHALATION ×4 (03:12→21:13)
[2023-07-26] MEDS: HYDROCORTISONE SODIUM SUCCINATE 100 MG/2 ML VIAL IV PUSH (05:29)
[2023-07-26] MEDS: CENTRAL LINE FLUSH 10 ML IV PUSH ×3 (05:30→21:25)
[2023-07-26 05:40] LABS: Alveolar/Arterial O2 Gradient 89.4 mmHg; Base Excess ABG 2.3 mEq/l (+/-2.0); Carboxyhemoglobin 0.1 % THb (0-2.0); Fractional Inspired Oxygen 30 %; HCO3 ABG 27.1 mEq/l (22.0-26.0); Methemoglobin ABG 0.2 %THb (0-1.5); Oxygen Content ABG 12.7 %vol (16.0-22.0); Oxyhemoglobin 91.8 % THb (90.0-100.0); PCO2 ABG 43.3 mmHg (35.0-45.0); PO2 ABG 73.6 mmHg (80.0-100.0); PO2 FiO2 Ratio Arterial Blood 2.45 %; Reduced Hemoglobin 7.9 %THb (0-5.0); Total Hemoglobin 9.8 g/dL (12.0-18.0); pH ABG 7.415 (7.350-7.450)
[2023-07-26 05:41] LABS: Modified Allen's Test Pass; Site Drawn RIGHT RADIAL
[2023-07-26 05:42] LABS: Arterial Blood Gas PEEP 5 cmH2O; Arterial Blood Gas Tidal Volume 420 ml; Arterial Blood Gas Vent Mode CMV; Arterial Blood Gas Ventilator rate 18 /MIN; Device VENTILATOR
[2023-07-26 05:43] LABS: Basophils Absolute Auto 0.1 K/mm3 (0.0-0.1); Basophils Percent Auto 0.9 % (0.2-1.2); Eosinophils Percent Auto 0.1 % (0-4.4); Hematocrit 26.8 % (37.0-47.0); Hemoglobin 8.6 g/dL (12.0-15.0); Immature Granulocyte Absolute 0.04 K/mm3 (0.00-0.031); Immature Granulocyte Percent A 0.3 % (0-0.5); Immature Platelet Fraction Pct 12.9 % (0.9-11.2); Lymphocytes Absolute Auto 0.92 K/mm3 (0.9-3.2); Lymphocytes Percent Auto 7.7 % (18.3-44.2); Mean Corpuscular HGB Conc 32.1 g/dl (32-36); Mean Corpuscular Hemoglobin 29.5 pg (26-34); Mean Corpuscular Volume 91.8 fl (80-100); Monocytes Absolute Auto 0.4 K/mm3 (0.1-0.6); Monocytes Percent Auto 3.1 % (2.6-8.5); Neutrophils Absolute Auto 10.5 K/mm3 (1.3-6.7); Neutrophils Percent Auto 87.9 % (45.5-73.1); Platelet Count Result 58 k/mm3 (150-375); Red Blood Count 2.92 M/mm3 (4.2-5.4); Red Cell Distribution Width 15.9 % (11.5-14.5)
[2023-07-26 05:53] LABS: Lactic Acid Reflex 1.4 mmol/L (0.7-2.0)
[2023-07-26 05:59] LABS: Albumin Level 3.7 g/dL (3.5-5.1); Alkaline Phosphatase 180 U/L (38-126); Anion Gap 13 mmol/L (8-16); Blood Urea Nitrogen 83 mg/dL (7-17); Calcium 7.9 mg/dL (8.4-10.2); Carbon Dioxide 27 mmol/L (22-30); Chloride 98 mmol/L (98-107); Estimated CRCL calculation 17 ml/min; Estimated Glomerular Filt Rate 11; Glucose 136 mg/dL (65-110); Magnesium 2.6 mg/dL (1.6-2.3); Phosphorus 5.4 mg/dL (2.5-4.5); Potassium 3.5 mmol/L (3.4-5.0); Sodium 138 mmol/L (137-145)
[2023-07-26 06:29] LABS: Hepatitis B Surface Antigen Negative (Negative)
[2023-07-26 06:36] LABS: Alanine Aminotransferase 1052 U/L (6-35); Aspartate Amino Transferase 954 U/L (14-36)
[2023-07-26 06:39] LABS: Anisocytosis 1+ (NORMAL); Ovalocytes 1+ (NORMAL); Platelet Estimate Decreased (Adequate); Schistocytes None Seen (NORMAL)
[2023-07-26 06:40] LABS: Burr Cells 1+ (NORMAL); Hypochromasia 2+ (NORMAL)
[2023-07-26 06:47] LABS: Hepatitis B Surface Anti Res Negative
--- NOTE | 2023-07-26 08:26 | WPDGIPROGNO ---
Progress Note: A&P Assessment and Plan (1) Anemia: Code(s): D64.9 - Anemia, unspecified Status: Acute Assessment and Plan: Patient noted to be anemic. This appears to be multifactorial. Likely related to kidney disease. Only source of bleeding at this time appears to be from the kidney stone. Stool Hemoccult in progress. No signs of GI blood loss at this time. (2) Elevated LFTs: Code(s): R79.89 - Other specified abnormal findings of blood chemistry Status: Acute Assessment and Plan: Elevated LFTs identified. These appear to be related to her sepsis. Shock liver cannot be excluded. Plan to continue to monitor and follow conservatively. (3) ARF (acute renal failure): Code(s): N17.9 - Acute kidney failure, unspecified Status: Acute Assessment and Plan: Renal insufficiency identified. Patient may have ATN. Currently followed by benefits assistant Service. (4) Morbid obesity with BMI of 40.0-44.9, adult: Code(s): E66.01 - Morbid (severe) obesity due to excess calories; Z68.41 - Body mass index [BMI] 40.0-44.9, adult Status: Acute (5) Left ureteral stone: Code(s): N20.1 - Calculus of ureter Status: Acute Assessment and Plan: Patient is status post cystoscopy and placement of stent. Followed by Urology (6) Septic shock: Code(s): A41.9 - Sepsis, unspecified organism; R65.21 - Severe sepsis with septic shock Status: Acute (7) Acute OK: Code(s): I21.9 - Acute myocardial infarction, unspecified Status: Acute Assessment and Plan: concern over patient having had an OK. Currently remains on the ventilator with cardiopulmonary failure. Subjective Date/time seen: 07/26/23 08:26 Interval history: Patient remains intubated and sedated on the ventilator. Nursing report no obvious GI blood loss. No change in Status overnight. Review of Systems Review of Systems: ROS unobtainable: Yes unobtainable due to endotracheal tube Exam Narrative: on patient remains intubated on the ventilator. HEENT exam reveals no icterus. Lungs reveal rhonchi. Heart without murmur. Abdomen is obese. Bowel sounds are present soft nontender. Byers catheter in place. Some blood noted in the Byers bag. Objective Data Vital Signs Vital Signs: Vital Signs - 24 hr 07/25/23 08:41 07/25/23 10:18 07/25/23 10:00 Temperature Pulse Rate 109 H 102 H Respiratory Rate 22 H Blood Pressure 91/61 L 97/73 L 97/73 L Pulse Oximetry 94 Oxygen Delivery Fraction of Inspired Oxygen 07/25/23 10:55 07/25/23 11:28 07/25/23 11:33 Temperature 97.7 F Pulse Rate 58 L 59 L 59 L Respiratory Rate 18 Blood Pressure 90/60 L 89/63 L Pulse Oximetry 94 95 Oxygen Delivery Mechanical Ventilation Fraction of Inspired Oxygen 30 07/25/23 10:00 07/25/23 11:35 07/25/23 11:35 Temperature 97.6 F Pulse Rate 104 H 59 L 58 L Respiratory Rate 18 18 18 Blood Pressure 87/62 L Pulse Oximetry 95 Oxygen Delivery Fraction of Inspired Oxygen 07/25/23 11:40 07/25/23 11:45 07/25/23 11:47 Temperature 97.5 F L 97.5 F L Pulse Rate 57 L 56 L 57 L Respiratory Rate 18 18 Blood Pressure 107/75 118/72 118/72 Pulse Oximetry 98 98 Oxygen Delivery Fraction of Inspired Oxygen 07/25/23 12:32 07/25/23 12:00 07/25/23 13:30 Temperature Pulse Rate 56 L 56 L 60 Respiratory Rate 18 Blood Pressure 117/69 118/72 Pulse Oximetry 97 97 Oxygen Delivery Mechanical Ventilation Fraction of Inspired Oxygen 30 07/25/23 13:30 07/25/23 13:40 07/25/23 14:09 Temperature Pulse Rate 60 61 64 Respiratory Rate 18 18 Blood Pressure 103/64 Pulse Oximetry Oxygen Delivery Fraction of Inspired Oxygen 07/25/23 10:00 07/25/23 12:00 07/25/23 12:45 Temperature 97.0 F L Pulse Rate 102 H 55 L 57 L Respiratory Rate 18 Blood Pressure 105/66 Pulse Oximetry 97 Oxygen Delivery Fra
[2023-07-26] MEDS: MINERAL OIL/WHITE PETROLATUM OINTMENT 1 APPLIC EACH EYE ×2 (09:06→21:08)
[2023-07-26] MEDS: TOLNAFTATE 1% POWDER 45 GM BTL 1 APPLIC TOPICAL ×2 (09:06→21:08)
[2023-07-26] MEDS: PANTOPRAZOLE SODIUM IV 40 MG VIAL IV PUSH ×2 (09:06→21:08)
[2023-07-26] MEDS: MEROPENEM 500 MG in SODIUM CHLORIDE 0.9% IV 100 ML 200 ML IVPB ×2 (09:06→21:20)
--- NOTE | 2023-07-26 09:17 | WPDINTPN ---
Progress Note: A&P Assessment and Plan (1) Acute hypoxic respiratory failure: Code(s): J96.01 - Acute respiratory failure with hypoxia Status: Acute Assessment and Plan: Acute respiratory failure likely related septic shock, status post cystoscopy, pyelogram, left ureteral stent insertion, Byers catheter insertion on 07/23/2023. Patient was intubated for the seizure on 07/23 -currently on CMV mode of ventilation, peep of 8 and 30% FiO2 -chest x-ray and ABGs reviewed -continue bronchodilators -continue fentanyl Versed infusion for sedation, maintain RASS of 0 to -2, daily sedation vacation -will diurese patient, after which a with switch her to Precedex infusion and will do a breathing trial (2) Septic shock: Code(s): A41.9 - Sepsis, unspecified organism; R65.21 - Severe sepsis with septic shock Status: Acute Assessment and Plan: Septic shock likely related to UTI, nephrolithiasis, pyelonephritis -patient was hypotensive, received 3 L IV fluids in the ER and the OR -lactic acid improving, 2.5 this morning -CO2 on BMP a has improved, will discontinue sodium bicarbonate -patient off epinephrine, vasopressin. -patient was off Levophed but had to be restarted earlier this morning on 07/25 as she was hypotensive -wean off stress dose steroids -mild improvement in urine output but worsening renal function -07/23/2023: Blood cultures growing Klebsiella pneumonia sensitive to meropenem -07/23/2023 urine culture: No growth - continue vancomycin, (07/23) and meropenem(07/24) -improvement in WBC count and bandemia (3) Acute non-ST elevation myocardial infarction (NSTEMI): Code(s): I21.4 - Non-ST elevation (NSTEMI) myocardial infarction Status: Acute Assessment and Plan: NSTEMI with elevated troponins likely related to septic shock -patient was started on heparin infusion after discussing with urologist overnight -appreciate cardiology consult -EKG showed sinus tachycardia with some ST-T changes multiple leads, no ST elevation elevation -patient also went into AFib RVR for a brief period of time and converted back to sinus rhythm which most likely related to severe acidosis -heparin infusion was discontinued after discussing with Cardiology as it was thought that she went into AFib secondary to underlying issues and given that she has been thrombocytopenic and anemic (4) Acute kidney injury: Code(s): N17.9 - Acute kidney failure, unspecified Status: Acute Assessment and Plan: Patient with acute kidney injury likely related to left nephrolithiasis and left hydronephrosis -adequately fluid-resuscitated -lactic acid is trending down well -discontinue bicarb infusion as his CO2 has improved on the BMP -appreciate nephrology evaluation and recommendation -continue to monitor urine output, renal function and electrolytes -patient is edematous will discuss with Nephrology in diurese patient with Bumex (5) Left nephrolithiasis: Code(s): N20.0 - Calculus of kidney Status: Acute Assessment and Plan: left UPJ stone, Cystoscopy, left retrograde pyelogram, left ureteral stent insertion, Byers catheter insertion on 07/23/2023. -urology following the patient (6) Acute UTI: Code(s): N39.0 - Urinary tract infection, site not specified Status: Acute Assessment and Plan: UA reflective of UTI likely related to left nephrolithiasis and hydronephrosis -continue antibiotics as above, cultures as above (7) Iron deficiency anemia secondary to blood loss (chronic): Code(s): D50.0 - Iron deficiency anemia secondary to blood loss (chronic) Status: Acute Assessment and Plan: Patient with a history of iron deficiency anemia on iron pills at home -continue to monitor hemoglobin 07/25: Hemoglobin 7.1 this morning, transfuse 1 unit of packed RBCs -appreciate GI evaluation and recommendations (8) Atrial fibrillation: Code(s): I48.91 - Unspecifie
--- NOTE | 2023-07-26 10:45 | PM.PNNEP ---
Progress Note: A&P Assessment and Plan (1) Acute kidney injury: Code(s): N17.9 - Acute kidney failure, unspecified Status: Acute Assessment and Plan: presumably secondary to left nephrolithiasis with associated hydronephrosis along with septic shock normal renal function at baseline (from labs ~ 2 years ago) agree with trial of IV diuretics given edema issues follow repeat labs and UOP (2) Septic shock: Code(s): A41.9 - Sepsis, unspecified organism; R65.21 - Severe sepsis with septic shock Status: Acute Assessment and Plan: as noted on admission with leukocytosis, hypotension, lactic acidosis and KIM/ARF secondary to UTI, nephrolithiasis, and possible pyelonephritis s/p IVF resuscitation vasopressor support to maintain MAP/BP - currently off follow culture data - results noted on antibiotics follow hemodynamics (3) Acute hypoxic respiratory failure: Code(s): J96.01 - Acute respiratory failure with hypoxia Status: Acute Assessment and Plan: due septic shock and recent operative intervention ventilator weaning once more stable follow CXR and ABGs. (4) Acute non-ST elevation myocardial infarction (NSTEMI): Code(s): I21.4 - Non-ST elevation (NSTEMI) myocardial infarction Status: Acute Assessment and Plan: elevated troponins noted presumably precipitated by septic shock and demand ischemia from underlying acute medical issues Cardiology recommendations noted (5) Left nephrolithiasis: Code(s): N20.0 - Calculus of kidney Status: Acute Assessment and Plan: Urology following s/p cystoscopy, left retrograde pyelogram, left ureteral stent insertion and Byers catheter plaement (on 07/23) (6) Iron deficiency anemia secondary to blood loss (chronic): Code(s): D50.0 - Iron deficiency anemia secondary to blood loss (chronic) Status: Acute Assessment and Plan: known history suspect hemoglobin may fluctuate further give acute medical issues follow trend of H/H Will continue to follow. Subjective Date/time seen: 07/26/23 10:45 Interval history: Follow-up for acute kidney injry/acute renal failure. Remains intubated/sedated and on mechanical ventilation; better urine output in the last 24 hours but rise in BUN and creatinine noted in association with peripheral edema; weaned off all vasopressor therapy/support with stable hemodynamics noted; s/p PRBC transfusion due to drop in H/H. Exam Narrative: General: large but WD/WN female intubated/sedated on mechanical ventilation Heart: normal S1 and S2; no rub Lungs: coarse breath sounds noted Abdomen: soft, nontender, nondistended, positive bowel sounds Extremities: no cyanosis or clubbing; trace - 1+ edema Skin: warm and intact Objective Data Vital Signs Vital Signs: Vital Signs Temp Pulse Resp BP Pulse Ox O2 Del Method FiO2 07/26/23 10:45 62 138/76 07/26/23 10:00 62 18 07/26/23 10:00 62 18 07/26/23 10:00 63 18 135/74 94 07/26/23 08:00 69 18 07/26/23 08:00 69 18 07/26/23 08:00 97.5 F L 78 22 H 135/63 96 07/26/23 06:30 97.6 F 73 15 143/78 H 94 07/26/23 06:00 73 07/26/23 04:00 Mechanical Ventilation 30 07/26/23 05:45 78 98 Mechanical Ventilation 30 07/26/23 04:00 61 18 107/64 95 07/26/23 02:00 56 L 18 113/70 96 07/26/23 04:00 60 07/26/23 02:00 56 L 07/26/23 00:00 57 L 07/26/23 04:00 35 07/26/23 00:00 35 07/26/23 00:00 Mechanical Ventilation 30 07/26/23 03:13 57 L 96 Mechanical Ventilation 30 07/26/23 03:12 57 L 18 07/25/23 23:00 56 L 122/73 07/25/23 22:00 60 130/77 07/25/23 20:00 133 H 126/90 07/25/23 19:00 97.7 F 132 H 21 H 96/71 L 07/25/23 23:16 58 L 97 Mechanical Ventilation 30 07/25/23 22:00 97.7 F
--- NOTE | 2023-07-26 10:45 | P.PNNP_ITS ---
Progress Note: A&P Assessment and Plan (1) Acute kidney injury: Code(s): N17.9 - Acute kidney failure, unspecified Status: Acute Assessment and Plan: * presumably secondary to left nephrolithiasis with associated hydronephrosis along with septic shock * normal renal function at baseline (from labs ~ 2 years ago) * agree with trial of IV diuretics given edema issues * follow repeat labs and UOP (2) Septic shock: Code(s): A41.9 - Sepsis, unspecified organism; R65.21 - Severe sepsis with septic shock Status: Acute Assessment and Plan: * as noted on admission with leukocytosis, hypotension, lactic acidosis and KIM/ARF * secondary to UTI, nephrolithiasis, and possible pyelonephritis * s/p IVF resuscitation * vasopressor support to maintain MAP/BP - currently off * follow culture data - results noted * on antibiotics * follow hemodynamics (3) Acute hypoxic respiratory failure: Code(s): J96.01 - Acute respiratory failure with hypoxia Status: Acute Assessment and Plan: * due septic shock and recent operative intervention * ventilator weaning once more stable * follow CXR and ABGs. (4) Acute non-ST elevation myocardial infarction (NSTEMI): Code(s): I21.4 - Non-ST elevation (NSTEMI) myocardial infarction Status: Acute Assessment and Plan: * elevated troponins noted * presumably precipitated by septic shock and demand ischemia from underlying acute medical issues * Cardiology recommendations noted (5) Left nephrolithiasis: Code(s): N20.0 - Calculus of kidney Status: Acute Assessment and Plan: * Urology following * s/p cystoscopy, left retrograde pyelogram, left ureteral stent insertion and Byers catheter plaement (on 07/23) (6) Iron deficiency anemia secondary to blood loss (chronic): Code(s): D50.0 - Iron deficiency anemia secondary to blood loss (chronic) Status: Acute Assessment and Plan: * known history * suspect hemoglobin may fluctuate further give acute medical issues * follow trend of H/H Will continue to follow. Subjective Date/time seen: 07/26/23 10:45 Interval history: Follow-up for acute kidney injry/acute renal failure. Remains intubated/sedated and on mechanical ventilation; better urine output in the last 24 hours but rise in BUN and creatinine noted in association with peripheral edema; weaned off all vasopressor therapy/support with stable hemodynamics noted; s/p PRBC transfusion due to drop in H/H. Exam Narrative: General: large but WD/WN female intubated/sedated on mechanical ventilation Heart: normal S1 and S2; no rub Lungs: coarse breath sounds noted Abdomen: soft, nontender, nondistended, positive bowel sounds Extremities: no cyanosis or clubbing; trace - 1+ edema Skin: warm and intact Objective Data Vital Signs Vital Signs: Vital Signs Temp Pulse Resp BP Pulse Ox O2 Del Method FiO2 07/26/23 10:45 62 138/76 07/26/23 10:00 62 18 07/26/23 10:00 62 18 07/26/23 10:00 63 18 135/74 94 07/26/23 08:00 69 18 07/26/23 08:00 69 18 07/26/23 08:00 97.5 F L 78 22 H 135/63 96 07/26/23 06:30 97.6 F 73 15 143/78 H 94 07/26/23 06:00 73 07/26/23 04:00 Mechanical Ventilation 30 07/26/23 0
[2023-07-26] MEDS: HYDROCORTISONE SODIUM SUCCINATE 100 MG/2 ML VIAL 50 MG IV PUSH ×2 (10:46→21:08)
[2023-07-26] MEDS: BUMETANIDE INJ 1 MG/4 ML VIAL 2 MG IV PUSH (10:47)
--- NOTE | 2023-07-26 10:47 | WPDUROPN2 ---
Progress Note: A&P Assessment and Plan (1) Left nephrolithiasis: Code(s): N20.0 - Calculus of kidney Status: Acute Assessment and Plan: Stent placed 08/22/23, maintain until patient able to undergo URS or ESWL for definitive stone managment. Urology available. (2) Septic shock: Code(s): A41.9 - Sepsis, unspecified organism; R65.21 - Severe sepsis with septic shock Status: Acute Assessment and Plan: Agree with broad spectrum antibiotics for klebsiella. Care per ICU Subjective Subjective Date/Time Seen: 07/26/23 10:47 Interval history: Progress noted -Hemodynamics improving, UOP improving. Review of Systems Review of Systems: Unable to obtain, patient intubated and sedated. Exam Narrative: Intubated and sedated S/NT/ND Byers with clear yellow urine. Objective Data Vital Signs Vital Signs: Vital Signs - 24 hr 07/25/23 10:55 07/25/23 11:28 07/25/23 11:33 Temperature 97.7 F Pulse Rate 58 L 59 L 59 L Respiratory Rate 18 Blood Pressure 90/60 L 89/63 L Pulse Oximetry 94 95 Oxygen Delivery Mechanical Ventilation Fraction of Inspired Oxygen 30 07/25/23 11:35 07/25/23 11:35 07/25/23 11:40 Temperature 97.6 F 97.5 F L Pulse Rate 59 L 58 L 57 L Respiratory Rate 18 18 18 Blood Pressure 87/62 L 107/75 Pulse Oximetry 95 98 Oxygen Delivery Fraction of Inspired Oxygen 07/25/23 11:45 07/25/23 11:47 07/25/23 12:32 Temperature 97.5 F L Pulse Rate 56 L 57 L 56 L Respiratory Rate 18 Blood Pressure 118/72 118/72 117/69 Pulse Oximetry 98 Oxygen Delivery Fraction of Inspired Oxygen 07/25/23 12:00 07/25/23 13:30 07/25/23 13:30 Temperature Pulse Rate 56 L 60 60 Respiratory Rate 18 18 Blood Pressure 118/72 Pulse Oximetry 97 97 Oxygen Delivery Mechanical Ventilation Fraction of Inspired Oxygen 30 07/25/23 13:40 07/25/23 14:09 07/25/23 12:00 Temperature Pulse Rate 61 64 55 L Respiratory Rate 18 Blood Pressure 103/64 Pulse Oximetry Oxygen Delivery Fraction of Inspired Oxygen 07/25/23 12:45 07/25/23 13:45 07/25/23 14:29 Temperature 97.0 F L 97.0 F L 97.6 F Pulse Rate 57 L 60 63 Respiratory Rate 18 18 18 Blood Pressure 105/66 101/65 103/68 Pulse Oximetry 97 97 96 Oxygen Delivery Fraction of Inspired Oxygen 07/25/23 12:00 07/25/23 12:00 07/25/23 14:49 Temperature Pulse Rate 61 Respiratory Rate 18 Blood Pressure Pulse Oximetry Oxygen Delivery Mechanical Ventilation Fraction of Inspired Oxygen 35 35 07/25/23 14:00 07/25/23 12:42 07/25/23 13:06 Temperature Pulse Rate 66 57 L 60 Respiratory Rate 18 21 H Blood Pressure Pulse Oximetry 98 96 Oxygen Delivery Fraction of Inspired Oxygen 07/25/23 13:15 07/25/23 13:16 07/25/23 13:30 Temperature Pulse Rate 59 L 60 60 Respiratory Rate 16 17 18 Blood Pressure 101/68 Pulse Oximetry 94 96 96 Oxygen Delivery Fraction of Inspired Oxygen 07/25/23 13:31 07/25/23 13:45 07/25/23 13:46 Temperature Pulse Rate 61 60 62 Respiratory Rate 18 18 18 Blood Pressure 101/68 101/65 Pulse Oximetry 96 95 97 Oxygen Delivery Fraction of Inspired Oxygen 07/25/23 14:01 07/25/23 14:02 07/25/23 14:15 Temperature Pulse Rate 66 62 66 Respiratory Rate 18 18 19 Blood Pressure 103/64 Pulse Oximetry 96 96 93 Oxygen Delivery Fraction of Inspired Oxygen 07/25/23 14:16 07/25/23 14:30 07/25/23 14:31 Temperature Pulse Rate 67 61 64 Respiratory Rate 20 18 18 Blood Pressure 103/68 106/68 Pulse Oximetry 96 94 97 Oxygen Delivery Fraction of Inspired Oxygen 07/25/23 15:01 07/25/23 16:00 07/25/23 16:00 Temperature Pulse Rate 59 L 61 60 Respiratory Rate 19 17 Blood Pressure 102/68 110/68 Pulse Oximetry 96 96 96 Oxygen Delivery Mechanical Ventilation Fraction of Inspired Oxygen 30 07/25/23 16:00 07/25/23 16:00 07/25/23 16:00 Temperature
[2023-07-26] MEDS: KCL 40 MEQ/WATER 100 ML 100 ML 25 ML IVPB ×2 (11:08→21:08)
[2023-07-26 12:06] LABS: Glucose Point of Care 153 mg/dl (65-105)
[2023-07-26 15:51] LABS: Lactic Acid 1.5 mmol/L (0.7-2.0)
[2023-07-26 18:28] LABS: Glucose Point of Care 161 mg/dl (65-105)
[2023-07-26] MEDS: FENTANYL 2,500MCG/NS250ML(*CRX 2,500 MCG/250 ML BAG IV CONT (18:30)
[2023-07-26] MEDS: METOPROLOL TARTRATE INJ 5 MG/5 ML VIAL IV PUSH (19:39)
[2023-07-26 20:13] LABS: Anion Gap 15 mmol/L (8-16); Blood Urea Nitrogen 92 mg/dL (7-17); Calcium 8.3 mg/dL (8.4-10.2); Carbon Dioxide 27 mmol/L (22-30); Chloride 97 mmol/L (98-107); Estimated CRCL calculation 19 ml/min; Estimated Glomerular Filt Rate 12; Glucose 182 mg/dL (65-110); Magnesium 2.7 mg/dL (1.6-2.3); Phosphorus 4.5 mg/dL (2.5-4.5); Potassium 2.9 mmol/L (3.4-5.0); Sodium 139 mmol/L (137-145)
[2023-07-26] MEDS: POTASSIUM CHLORIDE 20 MEQ PACKET (FOR LIQUID) 40 MEQ FEED TUBE (21:07)
[2023-07-26] MEDS: METOPROLOL TARTRATE 25 MG TABLET PO (21:08)
[2023-07-27] VITALS (46 sets, daily range): BP systolic 102–168; BP diastolic 67–86; PULSE 58–94; RESP 18–30; TEMP 36.6–37; O2SAT 93–100
[2023-07-27 01:45] LABS: Glucose Point of Care 147 mg/dl (65-105)
--- NOTE | 2023-07-27 02:21 | ECG_ITS ---
Measurements Intervals [place] Rate: 74 P: 44 [place]: 156 QRS: 17 QRSD: 110 T: 24 QT: 412 QTc: 459 Interpretive Statements SINUS RHYTHM NONSPECIFIC T-WAVE ABNORMALITY BORDERLINE ECG COMPARED TO ECG 07/25/2023 08:54:54 SINUS RHYTHM HAS REPLACED ATRIAL FIBRILLATION Electronically Signed On 07-27-2023 11:56:50 EPIC PRELUDE ANALYST by Mikel Valadez M.D.
[2023-07-27] MEDS: LEVALBUTEROL NEB 1.25 MG/3 ML 0.63 MG INHALATION ×4 (02:38→20:14)
[2023-07-27] MEDS: IPRATROPIUM BR 0.02% INH SOLN 0.5 MG/2.5 ML VIAL INHALATION ×4 (02:38→20:14)
[2023-07-27 05:40] LABS: Alveolar/Arterial O2 Gradient 87.1 mmHg; Base Excess ABG 2.3 mEq/l (+/-2.0); Carboxyhemoglobin 0.2 % THb (0-2.0); Fractional Inspired Oxygen 30 %; HCO3 ABG 26.3 mEq/l (22.0-26.0); Methemoglobin ABG 0.1 %THb (0-1.5); Oxygen Content ABG 15.3 %vol (16.0-22.0); Oxygen Saturation ABG 96.5 % (95.0-100.0); Oxyhemoglobin 94.2 % THb (90.0-100.0); PCO2 ABG 38.4 mmHg (35.0-45.0); PO2 ABG 81.7 mmHg (80.0-100.0); PO2 FiO2 Ratio Arterial Blood 2.72 %; Reduced Hemoglobin 5.5 %THb (0-5.0); Total Hemoglobin 11.5 g/dL (12.0-18.0); pH ABG 7.453 (7.350-7.450)
[2023-07-27 05:41] LABS: Device VENTILATOR; Modified Allen's Test Pass; Site Drawn LEFT RADIAL
[2023-07-27 05:42] LABS: Arterial Blood Gas PEEP 8 cmH2O; Arterial Blood Gas Tidal Volume 420 ml; Arterial Blood Gas Vent Mode CMV; Arterial Blood Gas Ventilator rate 18 /MIN
[2023-07-27 06:00] LABS: Basophils Percent Auto 0.2 % (0.2-1.2); Eosinophils Percent Auto 0.1 % (0-4.4); Hematocrit 29.9 % (37.0-47.0); Hemoglobin 9.5 g/dL (12.0-15.0); Immature Granulocyte Absolute 0.25 K/mm3 (0.00-0.031); Immature Platelet Fraction Pct 13.1 % (0.9-11.2); Lymphocytes Absolute Auto 1.34 K/mm3 (0.9-3.2); Lymphocytes Percent Auto 10.9 % (18.3-44.2); Mean Corpuscular HGB Conc 31.8 g/dl (32-36); Mean Corpuscular Volume 91.2 fl (80-100); Mean Platelet Volume 13.3 fl (7.4-10.4); Monocytes Absolute Auto 0.8 K/mm3 (0.1-0.6); Monocytes Percent Auto 6.4 % (2.6-8.5); Neutrophils Absolute Auto 9.9 K/mm3 (1.3-6.7); Neutrophils Percent Auto 80.4 % (45.5-73.1); Nucleated Red Blood Cells Perc 0.2 % (0.0-0.2); Platelet Count Result 66 k/mm3 (150-375); Red Blood Count 3.28 M/mm3 (4.2-5.4); Red Cell Distribution Width 15.6 % (11.5-14.5); White Blood Count 12.4 K/mm3 (4.5-10.0)
[2023-07-27] MEDS: CENTRAL LINE FLUSH 10 ML IV PUSH ×3 (06:10→21:08)
[2023-07-27 06:14] LABS: Lactic Acid Reflex 1.6 mmol/L (0.7-2.0)
[2023-07-27 06:33] LABS: Albumin Level 3.6 g/dL (3.5-5.1); Alkaline Phosphatase 265 U/L (38-126); Anion Gap 13 mmol/L (8-16); Aspartate Amino Transferase 728 U/L (14-36); Bilirubin,Total 1.2 mg/dL (0.2-1.3); Blood Urea Nitrogen 93 mg/dL (7-17); Calcium 8.4 mg/dL (8.4-10.2); Carbon Dioxide 28 mmol/L (22-30); Chloride 101 mmol/L (98-107); Estimated CRCL calculation 20 ml/min; Estimated Glomerular Filt Rate 13; Glucose 141 mg/dL (65-110); Magnesium 2.7 mg/dL (1.6-2.3); Phosphorus 4.1 mg/dL (2.5-4.5); Potassium 3.4 mmol/L (3.4-5.0); Sodium 142 mmol/L (137-145)
[2023-07-27 06:35] LABS: Alanine Aminotransferase 1130 U/L (6-35)
[2023-07-27 06:57] LABS: Anisocytosis 1+ (NORMAL); Platelet Estimate Decreased (Adequate)
[2023-07-27 06:58] LABS: Hypochromasia 1+ (NORMAL); Ovalocytes 1+ (NORMAL); Schistocytes None Seen (NORMAL)
[2023-07-27] MEDS: KCL 40 MEQ/WATER 100 ML 100 ML 25 ML IVPB (08:01)
[2023-07-27] MEDS: HYDROCORTISONE SODIUM SUCCINATE 100 MG/2 ML VIAL 50 MG IV PUSH (08:01)
[2023-07-27] MEDS: PANTOPRAZOLE SODIUM IV 40 MG VIAL IV PUSH ×2 (08:01→20:51)
[2023-07-27] MEDS: POTASSIUM CHLORIDE 20 MEQ PACKET (FOR LIQUID) 40 MEQ FEED TUBE (08:01)
[2023-07-27] MEDS: METOPROLOL TARTRATE 25 MG TABLET PO ×2 (08:02→20:51)
[2023-07-27] MEDS: MINERAL OIL/WHITE PETROLATUM OINTMENT 1 APPLIC EACH EYE ×2 (08:02→20:52)
[2023-07-27] MEDS: TOLNAFTATE 1% POWDER 45 GM BTL 1 APPLIC TOPICAL ×2 (08:29→20:52)
[2023-07-27] MEDS: MEROPENEM 500 MG in SODIUM CHLORIDE 0.9% IV 100 ML 200 ML IVPB ×2 (08:29→20:56)
--- NOTE | 2023-07-27 09:04 | WPDUROPN2 ---
Progress Note: A&P Assessment and Plan (1) Left nephrolithiasis: Code(s): N20.0 - Calculus of kidney Status: Acute Assessment and Plan: Stent placed 08/22/23, maintain until patient able to undergo URS or ESWL for definitive stone managment. Urology available. UOP and renal function improving, continue to monitor. (2) Septic shock: Code(s): A41.9 - Sepsis, unspecified organism; R65.21 - Severe sepsis with septic shock Status: Acute Assessment and Plan: Agree with broad spectrum antibiotics for klebsiella. Care per ICU Subjective Subjective Date/Time Seen: 07/27/23 09:04 Interval history: 07/26/23 Progress noted -Hemodynamics improving, UOP improving. 07/27/23 Continued progress, UOP and SCr improving, hemodynamics improving, nursing weaning sedation. Exam Narrative: Intubated/sedated RRR eWOB S/NT/ND, obese Objective Data Vital Signs Vital Signs: Vital Signs - 24 hr 07/26/23 10:00 07/26/23 10:00 07/26/23 10:00 Temperature Pulse Rate 63 62 62 Respiratory Rate 18 18 18 Blood Pressure 135/74 Pulse Oximetry 94 Oxygen Delivery Fraction of Inspired Oxygen 07/26/23 10:46 07/26/23 11:20 07/26/23 12:00 Temperature 98.2 F Pulse Rate 62 62 62 Respiratory Rate 18 Blood Pressure 138/76 138/75 Pulse Oximetry 96 95 Oxygen Delivery Mechanical Ventilation Fraction of Inspired Oxygen 30 07/26/23 12:00 07/26/23 12:00 07/26/23 10:00 Temperature Pulse Rate 62 Respiratory Rate Blood Pressure Pulse Oximetry 96 Oxygen Delivery Mechanical Ventilation Fraction of Inspired Oxygen 30 30 07/26/23 12:00 07/26/23 12:00 07/26/23 12:00 Temperature Pulse Rate 63 63 63 Respiratory Rate 18 18 Blood Pressure Pulse Oximetry Oxygen Delivery Fraction of Inspired Oxygen 07/26/23 14:56 07/26/23 14:55 07/26/23 14:00 Temperature Pulse Rate 71 71 75 Respiratory Rate 18 18 Blood Pressure 149/77 H Pulse Oximetry 95 95 Oxygen Delivery Mechanical Ventilation Fraction of Inspired Oxygen 30 07/26/23 17:40 07/26/23 18:19 07/26/23 14:00 Temperature Pulse Rate 62 89 60 Respiratory Rate 18 Blood Pressure 140/67 Pulse Oximetry 94 Oxygen Delivery Mechanical Ventilation Fraction of Inspired Oxygen 30 07/26/23 14:00 07/26/23 16:00 07/26/23 16:00 Temperature Pulse Rate 60 69 69 Respiratory Rate 18 18 18 Blood Pressure Pulse Oximetry Oxygen Delivery Fraction of Inspired Oxygen 07/26/23 18:00 07/26/23 18:00 07/26/23 18:30 Temperature Pulse Rate 66 66 96 Respiratory Rate 18 18 18 Blood Pressure Pulse Oximetry Oxygen Delivery Fraction of Inspired Oxygen 07/26/23 16:00 07/26/23 18:00 07/26/23 16:00 Temperature Pulse Rate 69 66 Respiratory Rate 18 18 Blood Pressure 154/86 H 136/73 Pulse Oximetry 93 93 Oxygen Delivery Fraction of Inspired Oxygen 30 07/26/23 19:39 07/26/23 19:40 07/26/23 16:00 Temperature Pulse Rate 129 H 138 H Respiratory Rate 18 Blood Pressure 147/92 H Pulse Oximetry 94 94 Oxygen Delivery Mechanical Ventilation Fraction of Inspired Oxygen 30 07/26/23 14:00 07/26/23 16:00 07/26/23 18:00 Temperature Pulse Rate 60 68 66 Respiratory Rate Blood Pressure Pulse Oximetry Oxygen Delivery Fraction of Inspired Oxygen 07/26/23 20:00 07/26/23 21:08 07/26/23 21:20 Temperature 98.5 F Pulse Rate 132 H 128 H 128 H Respiratory Rate 19 Blood Pressure 152/97 H Pulse Oximetry 94 95 Oxygen Delivery Mechanical Ventilation Fraction of Inspired Oxygen 30 07/26/23 20:00 07/26/23 20:00 07/26/23 22:00 Temperature Pulse Rate 151 H 129 H Respiratory Rate 18 Blood Pressure 104/74 Pulse Oximetry 95 Oxygen Delivery Fraction of Inspired Oxygen 30 07/26/23 22:00 07/27/23 00:00 07/26/23 23:30 Temperature Pulse Rate 129 H 64 Respiratory Rate B
--- NOTE | 2023-07-27 09:44 | WPDGIPROGNO ---
Progress Note: A&P Assessment and Plan (1) Anemia: Code(s): D64.9 - Anemia, unspecified Status: Acute Assessment and Plan: Anemia appears to be multifactorial. No clear evidence for GI blood loss. Continue to monitor. Stool Hemoccult has been requested. She many benefit from prophylaxis for possible stress ulcer. (2) Elevated LFTs: Code(s): R79.89 - Other specified abnormal findings of blood chemistry Status: Acute Assessment and Plan: LFTs have begun to improve. Suspect this is related to her sepsis. Continue to monitor. No invasive testing per anticipated. (3) ARF (acute renal failure): Code(s): N17.9 - Acute kidney failure, unspecified Status: Acute (4) Acute NM: Code(s): I21.9 - Acute myocardial infarction, unspecified Status: Acute (5) Morbid obesity with BMI of 40.0-44.9, adult: Code(s): E66.01 - Morbid (severe) obesity due to excess calories; Z68.41 - Body mass index [BMI] 40.0-44.9, adult Status: Acute (6) Septic shock: Code(s): A41.9 - Sepsis, unspecified organism; R65.21 - Severe sepsis with septic shock Status: Acute (7) Acute UTI: Code(s): N39.0 - Urinary tract infection, site not specified Status: Acute (8) Left nephrolithiasis: Code(s): N20.0 - Calculus of kidney Status: Acute Subjective Date/time seen: 07/27/23 09:44 Interval history: Patient remains intubated and sedated in the ICU. She is on the ventilator. Unable to add any useful history. Nursing staff reports no evidence for GI blood loss. She does have a Byers catheterization in place, urine appears be somewhat blood tinged. Review of Systems Review of Systems: ROS unobtainable: Yes unobtainable due to endotracheal tube Exam Narrative: Physical exam patient is on the ventilator. HEENT exam reveals no icterus. Lungs reveal scattered rhonchi. Heart without murmur. Abdomen is obese. Bowel sounds present soft no localized masses nor tenderness. Objective Data Vital Signs Vital Signs: Vital Signs - 24 hr 07/26/23 10:00 07/26/23 10:00 07/26/23 10:00 Temperature Pulse Rate 63 62 62 Respiratory Rate 18 18 18 Blood Pressure 135/74 Pulse Oximetry 94 Oxygen Delivery Fraction of Inspired Oxygen 07/26/23 10:46 07/26/23 11:20 07/26/23 12:00 Temperature 98.2 F Pulse Rate 62 62 62 Respiratory Rate 18 Blood Pressure 138/76 138/75 Pulse Oximetry 96 95 Oxygen Delivery Mechanical Ventilation Fraction of Inspired Oxygen 30 07/26/23 12:00 07/26/23 12:00 07/26/23 10:00 Temperature Pulse Rate 62 Respiratory Rate Blood Pressure Pulse Oximetry 96 Oxygen Delivery Mechanical Ventilation Fraction of Inspired Oxygen 30 30 07/26/23 12:00 07/26/23 12:00 07/26/23 12:00 Temperature Pulse Rate 63 63 63 Respiratory Rate 18 18 Blood Pressure Pulse Oximetry Oxygen Delivery Fraction of Inspired Oxygen 07/26/23 14:56 07/26/23 14:55 07/26/23 14:00 Temperature Pulse Rate 71 71 75 Respiratory Rate 18 18 Blood Pressure 149/77 H Pulse Oximetry 95 95 Oxygen Delivery Mechanical Ventilation Fraction of Inspired Oxygen 30 07/26/23 17:40 07/26/23 18:19 07/26/23 14:00 Temperature Pulse Rate 62 89 60 Respiratory Rate 18 Blood Pressure 140/67 Pulse Oximetry 94 Oxygen Delivery Mechanical Ventilation Fraction of Inspired Oxygen 30 07/26/23 14:00 07/26/23 16:00 07/26/23 16:00 Temperature Pulse Rate 60 69 69 Respiratory Rate 18 18 18 Blood Pressure Pulse Oximetry Oxygen Delivery Fraction of Inspired Oxygen 07/26/23 18:00 07/26/23 18:00 07/26/23 18:30 Temperature Pulse Rate 66 66 96 Respiratory Rate 18 18 18 Blood Pressure Pulse Oximetry Oxygen Delivery Fraction of Inspired Oxygen 07/26/23 16:00 07/26/23 18:00 07/26/23 16:00 Temperature Pulse Rate 69 66 Respirator
[2023-07-27] MEDS: dexmedeTOMIDine 400 MCG/100 ML 400 MCG/100 ML BAG 6.03 MCG IV CONT (09:49)
--- NOTE | 2023-07-27 10:16 | P.PNNP_ITS ---
Progress Note: A&P Assessment and Plan (1) Acute kidney injury: Code(s): N17.9 - Acute kidney failure, unspecified Status: Acute Assessment and Plan: * improvement noted * presumably secondary to left nephrolithiasis with associated hydronephrosis along with septic shock * normal renal function at baseline (from labs ~ 2 years ago) * PRN IV diuretics given edema issues * follow repeat labs and UOP (2) Septic shock: Code(s): A41.9 - Sepsis, unspecified organism; R65.21 - Severe sepsis with septic shock Status: Acute Assessment and Plan: * as noted on admission with leukocytosis, hypotension, lactic acidosis and KIM/ARF * secondary to UTI, nephrolithiasis, and possible pyelonephritis * s/p IVF resuscitation * vasopressor support to maintain MAP/BP - currently off * follow culture data - results noted * on antibiotics * follow hemodynamics (3) Acute hypoxic respiratory failure: Code(s): J96.01 - Acute respiratory failure with hypoxia Status: Acute Assessment and Plan: * due septic shock and recent operative intervention * ventilator weaning once more stable * follow CXR and ABGs. (4) Acute non-ST elevation myocardial infarction (NSTEMI): Code(s): I21.4 - Non-ST elevation (NSTEMI) myocardial infarction Status: Acute Assessment and Plan: * elevated troponins noted * presumably precipitated by septic shock and demand ischemia from underlying acute medical issues * Cardiology recommendations noted (5) Left nephrolithiasis: Code(s): N20.0 - Calculus of kidney Status: Acute Assessment and Plan: * Urology following * s/p cystoscopy, left retrograde pyelogram, left ureteral stent insertion and Byers catheter plaement (on 07/23) (6) Iron deficiency anemia secondary to blood loss (chronic): Code(s): D50.0 - Iron deficiency anemia secondary to blood loss (chronic) Status: Acute Assessment and Plan: * known history * suspect hemoglobin may fluctuate further give acute medical issues * follow trend of H/H Will continue to follow. Subjective Date/time seen: 07/27/23 10:16 Interval history: Follow-up for acute kidney injry/acute renal failure. Good urine output with IV diuretic challenge yesterday with stability if not improvement in renal function/creatinine; remains intubated and on mechanical ventilation; H/H remains stable as well; hemodynamically stable off all vasopressor therapy. Exam Narrative: General: large but WD/WN female intubated/sedated on mechanical ventilation Heart: normal S1 and S2; no rub Lungs: coarse breath sounds noted Abdomen: soft, nontender, nondistended, positive bowel sounds Extremities: no cyanosis or clubbing; trace - 1+ edema Skin: no rash Objective Data Vital Signs Vital Signs: Vital Signs Temp Pulse Resp BP Pulse Ox O2 Del Method FiO2 07/27/23 10:00 78 19 07/27/23 10:00 78 19 07/27/23 08:30 78 19 07/27/23 08:30 78 19 07/27/23 07:00 60 18 07/27/23 07:00 60 18 07/27/23 10:30 75 20 07/27/23 10:00 63 18 138/73 95 07/27/23 10:44 66 95 Mechanical Ventilation 30 07/27/23 09:49 75 19 07/27/23 08:07 84 18 07/27/23 08:00 98.4 F 77 21 H 152/78 H
--- NOTE | 2023-07-27 10:16 | PM.PNNEP ---
Progress Note: A&P Assessment and Plan (1) Acute kidney injury: Code(s): N17.9 - Acute kidney failure, unspecified Status: Acute Assessment and Plan: improvement noted presumably secondary to left nephrolithiasis with associated hydronephrosis along with septic shock normal renal function at baseline (from labs ~ 2 years ago) PRN IV diuretics given edema issues follow repeat labs and UOP (2) Septic shock: Code(s): A41.9 - Sepsis, unspecified organism; R65.21 - Severe sepsis with septic shock Status: Acute Assessment and Plan: as noted on admission with leukocytosis, hypotension, lactic acidosis and KIM/ARF secondary to UTI, nephrolithiasis, and possible pyelonephritis s/p IVF resuscitation vasopressor support to maintain MAP/BP - currently off follow culture data - results noted on antibiotics follow hemodynamics (3) Acute hypoxic respiratory failure: Code(s): J96.01 - Acute respiratory failure with hypoxia Status: Acute Assessment and Plan: due septic shock and recent operative intervention ventilator weaning once more stable follow CXR and ABGs. (4) Acute non-ST elevation myocardial infarction (NSTEMI): Code(s): I21.4 - Non-ST elevation (NSTEMI) myocardial infarction Status: Acute Assessment and Plan: elevated troponins noted presumably precipitated by septic shock and demand ischemia from underlying acute medical issues Cardiology recommendations noted (5) Left nephrolithiasis: Code(s): N20.0 - Calculus of kidney Status: Acute Assessment and Plan: Urology following s/p cystoscopy, left retrograde pyelogram, left ureteral stent insertion and Byers catheter plaement (on 07/23) (6) Iron deficiency anemia secondary to blood loss (chronic): Code(s): D50.0 - Iron deficiency anemia secondary to blood loss (chronic) Status: Acute Assessment and Plan: known history suspect hemoglobin may fluctuate further give acute medical issues follow trend of H/H Will continue to follow. Subjective Date/time seen: 07/27/23 10:16 Interval history: Follow-up for acute kidney injry/acute renal failure. Good urine output with IV diuretic challenge yesterday with stability if not improvement in renal function/creatinine; remains intubated and on mechanical ventilation; H/H remains stable as well; hemodynamically stable off all vasopressor therapy. Exam Narrative: General: large but WD/WN female intubated/sedated on mechanical ventilation Heart: normal S1 and S2; no rub Lungs: coarse breath sounds noted Abdomen: soft, nontender, nondistended, positive bowel sounds Extremities: no cyanosis or clubbing; trace - 1+ edema Skin: no rash Objective Data Vital Signs Vital Signs: Vital Signs Temp Pulse Resp BP Pulse Ox O2 Del Method FiO2 07/27/23 10:00 78 19 07/27/23 10:00 78 19 07/27/23 08:30 78 19 07/27/23 08:30 78 19 07/27/23 07:00 60 18 07/27/23 07:00 60 18 07/27/23 10:30 75 20 07/27/23 10:00 63 18 138/73 95 07/27/23 10:44 66 95 Mechanical Ventilation 30 07/27/23 09:49 75 19 07/27/23 08:07 84 18 07/27/23 08:00 98.4 F 77 21 H 152/78 H 100 07/27/23 08:02 75 07/27/23 07:51 86 97 Mechanical Ventilation 30 07/27/23 07:50 75 18 07/27/23 02:53 65 18 07/27/23 04:00 Mechanical Ventilation 30 07/27/23 00:00 Mechanical Ventilation 30 07/26/23 20:00 Mechanical Ventilation 30 07/27/23 06:07 70 18 145/77 H 97 07/27/23 06:00 69 07/27/23 05:45 78 93 Mechanical Ventilation 30 07/27/23 04:15 98.6 F 61 18 102/71 96 07/27/23 02:00 70 20 107/67 95 07/27/23 00:00 63 18 112/67 95 07/27/23 04:00 30 07/27/23 04:00 61 07/27/23 02:00 70 07/27/23 00:00 66 1
--- NOTE | 2023-07-27 11:46 | WPDINTPN ---
Progress Note: A&P Assessment and Plan (1) Acute hypoxic respiratory failure: Code(s): J96.01 - Acute respiratory failure with hypoxia Status: Acute Assessment and Plan: Acute respiratory failure likely related septic shock, status post cystoscopy, pyelogram, left ureteral stent insertion, Byers catheter insertion on 07/23/2023. Patient was intubated for the seizure on 07/23 -currently on CMV mode of ventilation, peep of 8 and 30% FiO2 -chest x-ray and ABGs reviewed -continue bronchodilators -patient diuresed very well on 07/26 -will diurese again patient has positive fluid balance -switched sedation to Precedex infusion and discontinue fentanyl and Versed -once she is more awake will place her breathing trial (2) Septic shock: Code(s): A41.9 - Sepsis, unspecified organism; R65.21 - Severe sepsis with septic shock Status: Acute Assessment and Plan: RESOLVED Septic shock likely related to UTI, nephrolithiasis, pyelonephritis -patient was hypotensive, received 3 L IV fluids in the ER and the OR -lactic acid acid has normalized -patient off epinephrine, vasopressin. -off Levophed -off stress dose steroids -mild improvement in urine output but worsening renal function -07/23/2023: Blood cultures growing Klebsiella pneumonia sensitive to meropenem -07/23/2023 urine culture: No growth - continue vancomycin, (07/23) and meropenem(07/24) (3) Acute non-ST elevation myocardial infarction (NSTEMI): Code(s): I21.4 - Non-ST elevation (NSTEMI) myocardial infarction Status: Acute Assessment and Plan: NSTEMI with elevated troponins likely related to septic shock -patient was started on heparin infusion after discussing with urologist overnight -appreciate cardiology consult -EKG showed sinus tachycardia with some ST-T changes multiple leads, no ST elevation elevation -patient also went into AFib RVR for a brief period of time and converted back to sinus rhythm which most likely related to severe acidosis -heparin infusion was discontinued after discussing with Cardiology as it was thought that she went into AFib secondary to underlying issues and given that she has been thrombocytopenic and anemic (4) Acute kidney injury: Code(s): N17.9 - Acute kidney failure, unspecified Status: Acute Assessment and Plan: Patient with acute kidney injury likely related to left nephrolithiasis and left hydronephrosis -adequately fluid-resuscitated -lactic acid is trending down well -discontinue bicarb infusion as his CO2 has improved on the BMP -appreciate nephrology evaluation and recommendation -continue to monitor urine output, renal function and electrolytes -patient diuresed do very well with Bumex on 07/26 -will repeat Bumex again today (5) Left nephrolithiasis: Code(s): N20.0 - Calculus of kidney Status: Acute Assessment and Plan: left UPJ stone, Cystoscopy, left retrograde pyelogram, left ureteral stent insertion, Byers catheter insertion on 07/23/2023. -urology following the patient (6) Acute UTI: Code(s): N39.0 - Urinary tract infection, site not specified Status: Acute Assessment and Plan: UA reflective of UTI likely related to left nephrolithiasis and hydronephrosis -continue antibiotics as above, cultures as above (7) Iron deficiency anemia secondary to blood loss (chronic): Code(s): D50.0 - Iron deficiency anemia secondary to blood loss (chronic) Status: Acute Assessment and Plan: Patient with a history of iron deficiency anemia on iron pills at home -continue to monitor hemoglobin 07/25: Hemoglobin 7.1 this morning, transfuse 1 unit of packed RBCs -appreciate GI evaluation and recommendations -hemoglobin is stable (8) Atrial fibrillation: Code(s): I48.91 - Unspecified atrial fibrillation Status: Acute Assessment and Plan: Patient went to AFib again this morning, and remains in AFib with heart
[2023-07-27] MEDS: BUMETANIDE INJ 1 MG/4 ML VIAL IV PUSH (12:00)
[2023-07-27] MEDS: dexmedeTOMIDine 400 MCG/100 ML 400 MCG/100 ML BAG 12.06 MCG IV CONT (15:44)
[2023-07-27 15:49] LABS: Glucose Point of Care 151 mg/dl (65-105)
--- NOTE | 2023-07-27 16:13 | PM.IMPN ---
Progress Note: A&P Assessment and Plan (1) Acute hypoxic respiratory failure: Code(s): J96.01 - Acute respiratory failure with hypoxia Status: Acute Assessment and Plan: Acute respiratory failure likely related septic shock, status post cystoscopy, pyelogram, left ureteral stent insertion, Byers catheter insertion on 07/23/2023. Patient was intubated for possible seizure on 07/23 Per ICU (2) Septic shock: Code(s): A41.9 - Sepsis, unspecified organism; R65.21 - Severe sepsis with septic shock Status: Acute Assessment and Plan: RESOLVED Septic shock likely related to UTI, nephrolithiasis, pyelonephritis -patient was hypotensive, received 3 L IV fluids in the ER and the OR -lactic acid acid has normalized -patient off epinephrine, vasopressin. -off Levophed -off stress dose steroids -mild improvement in urine output but worsening renal function -07/23/2023: Blood cultures growing Klebsiella pneumonia sensitive to meropenem -07/23/2023 urine culture: No growth - continue vancomycin, (07/23) and meropenem(07/24) (3) Acute non-ST elevation myocardial infarction (NSTEMI): Code(s): I21.4 - Non-ST elevation (NSTEMI) myocardial infarction Status: Acute Assessment and Plan: NSTEMI with elevated troponins likely related to septic shock -patient was started on heparin infusion after discussing with urologist overnight -appreciate cardiology consult -EKG showed sinus tachycardia with some ST-T changes multiple leads, no ST elevation elevation -patient also went into AFib RVR for a brief period of time and converted back to sinus rhythm which most likely related to severe acidosis -heparin infusion was discontinued after discussing with Cardiology as it was thought that she went into AFib secondary to underlying issues and given that she has been thrombocytopenic and anemic (4) Acute kidney injury: Code(s): N17.9 - Acute kidney failure, unspecified Status: Acute Assessment and Plan: Patient with acute kidney injury likely related to left nephrolithiasis and left hydronephrosis -adequately fluid-resuscitated -lactic acid is trending down well -discontinue bicarb infusion as his CO2 has improved on the BMP -appreciate nephrology evaluation and recommendation -continue to monitor urine output, renal function and electrolytes -patient diuresed do very well with Bumex on 07/26 (5) Left nephrolithiasis: Code(s): N20.0 - Calculus of kidney Status: Acute Assessment and Plan: left UPJ stone, Cystoscopy, left retrograde pyelogram, left ureteral stent insertion, Byers catheter insertion on 07/23/2023. -urology following the patient (6) Acute UTI: Code(s): N39.0 - Urinary tract infection, site not specified Status: Acute Assessment and Plan: UA reflective of UTI likely related to left nephrolithiasis and hydronephrosis -continue antibiotics as above, cultures as above (7) Iron deficiency anemia secondary to blood loss (chronic): Code(s): D50.0 - Iron deficiency anemia secondary to blood loss (chronic) Status: Acute Assessment and Plan: Patient with a history of iron deficiency anemia on iron pills at home -continue to monitor hemoglobin 07/25: Hemoglobin 7.1 this morning, transfuse 1 unit of packed RBCs -appreciate GI evaluation and recommendations -hemoglobin is stable (8) Atrial fibrillation: Code(s): I48.91 - Unspecified atrial fibrillation Status: Acute Assessment and Plan: Patient went to AFib again this morning, and remains in AFib with heart rates in the 100s -will not start any anticoagulation at this time given patient is anemic requiring blood transfusion and thrombocytopenic -will discuss with Cardiology -currently in sinus rhythm, rate controlled -continue metoprolol (9) Elevated LFTs: Code(s): R79.89 - Other specified abnormal findings of blood chemistry Status: Acute
[2023-07-27] MEDS: hydrALAZINE HCL 20 MG/ML VIAL 10 MG IV PUSH (16:33)
[2023-07-27 17:56] LABS: Glucose Point of Care 129 mg/dl (65-105)
[2023-07-27] MEDS: dexmedeTOMIDine 400 MCG/100 ML 400 MCG/100 ML BAG 18.09 MCG IV CONT (20:50)
[2023-07-27] MEDS: dexmedeTOMIDine 400 MCG/100 ML 400 MCG/100 ML BAG 33.17 MCG IV CONT (23:35)
[2023-07-28] VITALS (50 sets, daily range): BP systolic 116–172; BP diastolic 60–88; PULSE 51–119; RESP 16–28; TEMP 36.6–36.9; O2SAT 95–99
[2023-07-28] MEDS: hydrALAZINE HCL 20 MG/ML VIAL 10 MG IV PUSH ×2 (00:11→14:17)
[2023-07-28 00:23] LABS: Glucose Point of Care 105 mg/dl (65-105)
[2023-07-28] MEDS: IPRATROPIUM BR 0.02% INH SOLN 0.5 MG/2.5 ML VIAL INHALATION ×4 (02:31→20:16)
[2023-07-28] MEDS: LEVALBUTEROL NEB 1.25 MG/3 ML 0.63 MG INHALATION ×4 (02:34→20:15)
[2023-07-28] MEDS: dexmedeTOMIDine 400 MCG/100 ML 400 MCG/100 ML BAG 36.18 MCG IV CONT ×2 (03:03→05:32)
[2023-07-28 05:45] LABS: Alveolar/Arterial O2 Gradient 96.8 mmHg; Base Excess ABG -0.6 mEq/l (+/-2.0); Carboxyhemoglobin 0.2 % THb (0-2.0); Device VENTILATOR; Fractional Inspired Oxygen 30 %; Methemoglobin ABG 0.2 %THb (0-1.5); Modified Allen's Test Pass; Oxygen Content ABG 19.7 %vol (16.0-22.0); Oxygen Saturation ABG 96.6 % (95.0-100.0); Oxyhemoglobin 94.3 % THb (90.0-100.0); PO2 ABG 80.7 mmHg (80.0-100.0); PO2 FiO2 Ratio Arterial Blood 2.69 %; Reduced Hemoglobin 5.3 %THb (0-5.0); Site Drawn RIGHT RADIAL; Total Hemoglobin 14.8 g/dL (12.0-18.0); pH ABG 7.469 (7.350-7.450)
[2023-07-28 05:46] LABS: Arterial Blood Gas PEEP 8 cmH2O; Arterial Blood Gas Tidal Volume 420 ml; Arterial Blood Gas Vent Mode CMV
[2023-07-28 05:54] LABS: Basophils Percent Auto 0.5 % (0.2-1.2); Eosinophils Absolute Auto 0.1 K/mm3 (0-0.3); Eosinophils Percent Auto 0.7 % (0-4.4); Hematocrit 30.8 % (37.0-47.0); Hemoglobin 9.7 g/dL (12.0-15.0); Immature Granulocyte Absolute 0.21 K/mm3 (0.00-0.031); Immature Granulocyte Percent A 2.5 % (0-0.5); Immature Platelet Fraction Pct 10.9 % (0.9-11.2); Lymphocytes Absolute Auto 1.01 K/mm3 (0.9-3.2); Lymphocytes Percent Auto 12.1 % (18.3-44.2); Mean Corpuscular HGB Conc 31.5 g/dl (32-36); Mean Corpuscular Volume 92.2 fl (80-100); Mean Platelet Volume 13.6 fl (7.4-10.4); Monocytes Absolute Auto 0.7 K/mm3 (0.1-0.6); Monocytes Percent Auto 8.5 % (2.6-8.5); Neutrophils Absolute Auto 6.3 K/mm3 (1.3-6.7); Neutrophils Percent Auto 75.7 % (45.5-73.1); Nucleated Red Blood Cells Perc 0.2 % (0.0-0.2); Platelet Count Result 78 k/mm3 (150-375); Red Blood Count 3.34 M/mm3 (4.2-5.4); Red Cell Distribution Width 15.8 % (11.5-14.5); White Blood Count 8.3 K/mm3 (4.5-10.0)
[2023-07-28 06:02] LABS: Albumin Level 3.5 g/dL (3.5-5.1); Alkaline Phosphatase 284 U/L (38-126); Anion Gap 12 mmol/L (8-16); Aspartate Amino Transferase 463 U/L (14-36); Bilirubin,Total 1.2 mg/dL (0.2-1.3); Blood Urea Nitrogen 92 mg/dL (7-17); Carbon Dioxide 28 mmol/L (22-30); Chloride 105 mmol/L (98-107); Estimated CRCL calculation 25 ml/min; Estimated Glomerular Filt Rate 17; Glucose 150 mg/dL (65-110); Magnesium 2.5 mg/dL (1.6-2.3); Phosphorus 3.8 mg/dL (2.5-4.5); Potassium 3.8 mmol/L (3.4-5.0); Sodium 145 mmol/L (137-145)
[2023-07-28 06:09] LABS: Lactic Acid Reflex 1.5 mmol/L (0.7-2.0)
[2023-07-28] MEDS: MIDAZOLAM HCL (*CRX) 2 MG/2 ML VIAL IV PUSH (06:11)
[2023-07-28] MEDS: CENTRAL LINE FLUSH 10 ML IV PUSH ×3 (06:11→21:41)
[2023-07-28 06:40] LABS: Vancomycin Trough 18.7 ug/mL (10.0-20.0)
[2023-07-28 06:45] LABS: Arterial Blood Gas Ventilator rate 18 /MIN
[2023-07-28 06:56] LABS: Hypochromasia 1+ (NORMAL); Ovalocytes 1+ (NORMAL); Platelet Estimate Decreased (Adequate); Schistocytes None Seen (NORMAL)
[2023-07-28 06:56] LABS: IFOB Positive Control Positive; Immunochemical Fecal Occult Bl Negative (N)
[2023-07-28 08:11] LABS: Alanine Aminotransferase 940 U/L (6-35)
--- NOTE | 2023-07-28 09:24 | WPDINTPN ---
Progress Note: A&P Assessment and Plan (1) Acute hypoxic respiratory failure: Code(s): J96.01 - Acute respiratory failure with hypoxia Status: Acute Assessment and Plan: Acute respiratory failure likely related septic shock, status post cystoscopy, pyelogram, left ureteral stent insertion, Byers catheter insertion on 07/23/2023. Patient was intubated for the seizure on 07/23 -currently on CMV mode of ventilation, peep of 8 and 30% FiO2 -chest x-ray and ABGs reviewed -continue bronchodilators -patient diuresed very well on 07/26 -will diurese again patient has positive fluid balance -patient is on Precedex infusion, opens her eyes but does not track, does not follow simple commands. Obtain CT brain -once she is more awake will place her breathing trial (2) Septic shock: Code(s): A41.9 - Sepsis, unspecified organism; R65.21 - Severe sepsis with septic shock Status: Acute Assessment and Plan: RESOLVED Septic shock likely related to UTI, nephrolithiasis, pyelonephritis -patient was hypotensive, received 3 L IV fluids in the ER and the OR -lactic acid acid has normalized -patient off epinephrine, vasopressin. -off Levophed -off stress dose steroids -mild improvement in urine output but worsening renal function -07/23/2023: Blood cultures growing Klebsiella pneumonia sensitive to meropenem -07/23/2023 urine culture: No growth - continue vancomycin, (07/23) and meropenem(07/24) (3) Acute non-ST elevation myocardial infarction (NSTEMI): Code(s): I21.4 - Non-ST elevation (NSTEMI) myocardial infarction Status: Acute Assessment and Plan: NSTEMI with elevated troponins likely related to septic shock -patient was started on heparin infusion after discussing with urologist overnight -appreciate cardiology consult -EKG showed sinus tachycardia with some ST-T changes multiple leads, no ST elevation elevation -patient also went into AFib RVR for a brief period of time and converted back to sinus rhythm which most likely related to severe acidosis -heparin infusion was discontinued after discussing with Cardiology as it was thought that she went into AFib secondary to underlying issues and given that she has been thrombocytopenic and anemic (4) Acute kidney injury: Code(s): N17.9 - Acute kidney failure, unspecified Status: Acute Assessment and Plan: Patient with acute kidney injury likely related to left nephrolithiasis and left hydronephrosis -adequately fluid-resuscitated -lactic acid is trending down well -07/27: discontinue bicarb infusion as his CO2 has improved on the BMP -appreciate nephrology evaluation and recommendation -continue to monitor urine output, renal function and electrolytes -patient diuresed do very well with Bumex on 07/26 and 07/27 -will repeat Bumex again today -good urine output with improvement in her creatinine (5) Left nephrolithiasis: Code(s): N20.0 - Calculus of kidney Status: Acute Assessment and Plan: left UPJ stone, Cystoscopy, left retrograde pyelogram, left ureteral stent insertion, Byers catheter insertion on 07/23/2023. -urology following the patient (6) Acute UTI: Code(s): N39.0 - Urinary tract infection, site not specified Status: Acute Assessment and Plan: UA reflective of UTI likely related to left nephrolithiasis and hydronephrosis -continue antibiotics as above, cultures as above (7) Iron deficiency anemia secondary to blood loss (chronic): Code(s): D50.0 - Iron deficiency anemia secondary to blood loss (chronic) Status: Acute Assessment and Plan: Patient with a history of iron deficiency anemia on iron pills at home -continue to monitor hemoglobin 07/25: Hemoglobin 7.1 this morning, transfuse 1 unit of packed RBCs -appreciate GI evaluation and recommendations -hemoglobin is stable (8) Atrial fibrillation: Code(s): I48.91 - Unspecified atrial fibrillation
[2023-07-28] MEDS: dexmedeTOMIDine 400 MCG/100 ML 400 MCG/100 ML BAG 45.23 MCG IV CONT ×5 (09:25→16:34)
[2023-07-28] MEDS: MEROPENEM 500 MG in SODIUM CHLORIDE 0.9% IV 100 ML 200 ML IVPB (09:27)
[2023-07-28] MEDS: BUMETANIDE INJ 1 MG/4 ML VIAL IV PUSH (09:27)
[2023-07-28] MEDS: METOPROLOL TARTRATE 25 MG TABLET PO (09:27)
[2023-07-28] MEDS: TOLNAFTATE 1% POWDER 45 GM BTL 1 APPLIC TOPICAL ×2 (09:28→20:31)
[2023-07-28] MEDS: MINERAL OIL/WHITE PETROLATUM OINTMENT 1 APPLIC EACH EYE ×2 (09:28→20:31)
[2023-07-28] MEDS: MIDAZOLAM HCL (*CRX) 2 MG/2 ML VIAL ×2 (09:28→11:39)
[2023-07-28] MEDS: PANTOPRAZOLE SODIUM IV 40 MG VIAL IV PUSH ×2 (09:28→20:31)
--- NOTE | 2023-07-28 10:06 | P.PNNP_ITS ---
Progress Note: A&P Assessment and Plan (1) Acute kidney injury: Code(s): N17.9 - Acute kidney failure, unspecified Status: Acute Assessment and Plan: * ongoing improvement noted * presumably secondary to left nephrolithiasis with associated hydronephrosis along with septic shock * normal renal function at baseline (from labs ~ 2 years ago) * PRN IV diuretics given edema issues * follow repeat labs and UOP (2) Septic shock: Code(s): A41.9 - Sepsis, unspecified organism; R65.21 - Severe sepsis with septic shock Status: Acute Assessment and Plan: * resolving * as noted on admission with leukocytosis, hypotension, lactic acidosis and KIM/ARF * secondary to UTI, nephrolithiasis, and possible pyelonephritis * s/p IVF resuscitation * vasopressor support to maintain MAP/BP - currently off * follow culture data - results noted * on antibiotics * follow hemodynamics (3) Acute hypoxic respiratory failure: Code(s): J96.01 - Acute respiratory failure with hypoxia Status: Acute Assessment and Plan: * due septic shock and recent operative intervention * ventilator weaning once more stable * follow CXR and ABGs. (4) Acute non-ST elevation myocardial infarction (NSTEMI): Code(s): I21.4 - Non-ST elevation (NSTEMI) myocardial infarction Status: Acute Assessment and Plan: * elevated troponins noted * presumably precipitated by septic shock and demand ischemia from underlying acute medical issues * Cardiology recommendations noted (5) Left nephrolithiasis: Code(s): N20.0 - Calculus of kidney Status: Acute Assessment and Plan: * Urology following * s/p cystoscopy, left retrograde pyelogram, left ureteral stent insertion and Byers catheter plaement (on 07/23) (6) Iron deficiency anemia secondary to blood loss (chronic): Code(s): D50.0 - Iron deficiency anemia secondary to blood loss (chronic) Status: Acute Assessment and Plan: * known history * suspect hemoglobin may fluctuate further give acute medical issues * follow trend of H/H Will continue to follow. Subjective Date/time seen: 07/28/23 10:06 Interval history: Follow-up for acute kidney injry/acute renal failure. Remains hemodynamically stable without the need for vasopressor support; renal function continues to improve with excellent urine output with the use of IV diuretics; no other acute issues/events overnight or earlier this morning. Exam Narrative: General: large but WD/WN female intubated/sedated on mechanical ventilation Heart: normal S1 and S2; no rub Lungs: coarse breath sounds noted Abdomen: soft, nontender, nondistended, positive bowel sounds Extremities: no cyanosis or clubbing; trace - 1+ edema Skin: no nodules Objective Data Vital Signs Vital Signs: Vital Signs Temp Pulse Resp BP Pulse Ox O2 Del Method FiO2 07/28/23 10:00 54 L 16 151/69 H 98 07/28/23 09:51 72 20 07/28/23 09:51 72 20 07/28/23 09:27 68 07/28/23 09:25 77 22 H 07/28/23 07:51 77 22 H 07/28/23 08:47 58 L 16 07/28/23 08:45 54 L 98 Mechanical Ventilation 30 07/28/23 08:29 58 L 16 07/28/23 06:00 67 26 H 145/70 H 97 07/28/23 06:00 67 07/28/23 06:00
--- NOTE | 2023-07-28 10:06 | PM.PNNEP ---
Progress Note: A&P Assessment and Plan (1) Acute kidney injury: Code(s): N17.9 - Acute kidney failure, unspecified Status: Acute Assessment and Plan: ongoing improvement noted presumably secondary to left nephrolithiasis with associated hydronephrosis along with septic shock normal renal function at baseline (from labs ~ 2 years ago) PRN IV diuretics given edema issues follow repeat labs and UOP (2) Septic shock: Code(s): A41.9 - Sepsis, unspecified organism; R65.21 - Severe sepsis with septic shock Status: Acute Assessment and Plan: resolving as noted on admission with leukocytosis, hypotension, lactic acidosis and KIM/ARF secondary to UTI, nephrolithiasis, and possible pyelonephritis s/p IVF resuscitation vasopressor support to maintain MAP/BP - currently off follow culture data - results noted on antibiotics follow hemodynamics (3) Acute hypoxic respiratory failure: Code(s): J96.01 - Acute respiratory failure with hypoxia Status: Acute Assessment and Plan: due septic shock and recent operative intervention ventilator weaning once more stable follow CXR and ABGs. (4) Acute non-ST elevation myocardial infarction (NSTEMI): Code(s): I21.4 - Non-ST elevation (NSTEMI) myocardial infarction Status: Acute Assessment and Plan: elevated troponins noted presumably precipitated by septic shock and demand ischemia from underlying acute medical issues Cardiology recommendations noted (5) Left nephrolithiasis: Code(s): N20.0 - Calculus of kidney Status: Acute Assessment and Plan: Urology following s/p cystoscopy, left retrograde pyelogram, left ureteral stent insertion and Byers catheter plaement (on 07/23) (6) Iron deficiency anemia secondary to blood loss (chronic): Code(s): D50.0 - Iron deficiency anemia secondary to blood loss (chronic) Status: Acute Assessment and Plan: known history suspect hemoglobin may fluctuate further give acute medical issues follow trend of H/H Will continue to follow. Subjective Date/time seen: 07/28/23 10:06 Interval history: Follow-up for acute kidney injry/acute renal failure. Remains hemodynamically stable without the need for vasopressor support; renal function continues to improve with excellent urine output with the use of IV diuretics; no other acute issues/events overnight or earlier this morning. Exam Narrative: General: large but WD/WN female intubated/sedated on mechanical ventilation Heart: normal S1 and S2; no rub Lungs: coarse breath sounds noted Abdomen: soft, nontender, nondistended, positive bowel sounds Extremities: no cyanosis or clubbing; trace - 1+ edema Skin: no nodules Objective Data Vital Signs Vital Signs: Vital Signs Temp Pulse Resp BP Pulse Ox O2 Del Method FiO2 07/28/23 10:00 54 L 16 151/69 H 98 07/28/23 09:51 72 20 07/28/23 09:51 72 20 07/28/23 09:27 68 07/28/23 09:25 77 22 H 07/28/23 07:51 77 22 H 07/28/23 08:47 58 L 16 07/28/23 08:45 54 L 98 Mechanical Ventilation 30 07/28/23 08:29 58 L 16 07/28/23 06:00 67 26 H 145/70 H 97 07/28/23 06:00 67 07/28/23 06:00 67 20 07/28/23 05:32 65 20 07/28/23 04:00 97.8 F 60 18 153/77 H 96 07/28/23 05:23 62 96 Mechanical Ventilation 30 07/28/23 04:00 60 07/28/23 04:00 30 07/28/23 04:00 96 Mechanical Ventilation 30 07/28/23 03:00 82 26 H 07/28/23 02:35 74 28 H 07/28/23 02:44 67 27 H 07/28/23 02:34 64 25 H 07/28/23 02:28 68 96 Mechanical Ventilation 30 07/28/23 02:16 60 18 07/28/23 02:00 60 18 155/74 H 95 07/28/23 02:00 60 07/28/23 00:00 63 07/28/23 00:00 95 Mechanical Ventilation 30 07/28/23 00:30 148/71 H 07/28/23 0
--- NOTE | 2023-07-28 10:46 | PCNFU ---
Nutrition Follow-Up Complete: Inadequate Oral Intake as related to mechanical ventilation as evidenced by NPO. Meet estimated nutritional needs - Meeting goal with tube feeds Goal: Pt current nutrition is Nepro @ 40 ml/ kcal, 72 g protein, 640 ml free water. Nutrition recommendation: Switch to Vital High Protein @ 70 ml/h (1540 kcal, 134 g protein, 1297 ml free water) if unable to extubate in the next 24 hours to meet protein energy needs. Last recorded weight is 113.6 kg. Bowel Motility: Last BM + 1 07/27/23 Labs Reviewed: Hgb 9.7, Hct 30.8, GFR 17, BUN 92, Cre 2.8, Glu 150 Meds Noted: Pressors off. Sedation with Precedex Skin: No pressure related breakdown Additional Notes: Head CT this morning. Current tube feeding order Nepro @ 40 ml/h meeting 96% EER, 50% estimated protein needs. May need to switch to Vital high protein. Will monitor, weight,labs, skin, feeding every Friday and Friday.
--- NOTE | 2023-07-28 11:16 | WPDGIPROGNO ---
Progress Note: A&P Assessment and Plan (1) Anemia: Code(s): D64.9 - Anemia, unspecified Status: Acute Assessment and Plan: Anemia is likely multifactorial. No evidence for GI blood loss. Stool Hemoccult today confirms this to be negative. (2) Elevated LFTs: Code(s): R79.89 - Other specified abnormal findings of blood chemistry Status: Acute Assessment and Plan: LFTs elevated. Most suspicious that this is related to sepsis. I cannot exclude shock liver related to hypotension and shock. Continue to monitor these conservatively. Anticipate resolution Slowly. (3) Acute FL: Code(s): I21.9 - Acute myocardial infarction, unspecified Status: Acute (4) ARF (acute renal failure): Code(s): N17.9 - Acute kidney failure, unspecified Status: Acute (5) Morbid obesity with BMI of 40.0-44.9, adult: Code(s): E66.01 - Morbid (severe) obesity due to excess calories; Z68.41 - Body mass index [BMI] 40.0-44.9, adult Status: Acute (6) Acute hypoxic respiratory failure: Code(s): J96.01 - Acute respiratory failure with hypoxia Status: Acute Subjective Date/time seen: 07/28/23 11:16 Interval history: Patient remains on the ventilator and sedated. No obvious GI bleeding described by nursing staff. Review of Systems Review of Systems: ROS unobtainable: Yes unobtainable due to endotracheal tube Exam Narrative: Physical exam revealed reveals patient be on the ventilator. Is currently sedated HEENT exam reveals no icterus. Lungs are with rhonchi is. Heart is without murmur. Abdomen is soft non tender somewhat obese. Objective Data Vital Signs Vital Signs: Vital Signs - 24 hr 07/27/23 11:20 07/27/23 13:49 07/27/23 13:50 Temperature Pulse Rate 60 60 60 Respiratory Rate 18 18 Blood Pressure Pulse Oximetry 97 Oxygen Delivery Mechanical Ventilation Fraction of Inspired Oxygen 30 07/27/23 14:04 07/27/23 12:00 07/27/23 12:00 Temperature 98.6 F Pulse Rate 62 58 L 58 L Respiratory Rate 18 18 18 Blood Pressure 149/79 H Pulse Oximetry 96 Oxygen Delivery Fraction of Inspired Oxygen 07/27/23 14:00 07/27/23 15:44 07/27/23 15:44 Temperature Pulse Rate 61 64 64 Respiratory Rate 18 18 18 Blood Pressure Pulse Oximetry Oxygen Delivery Fraction of Inspired Oxygen 07/27/23 14:00 07/27/23 16:00 07/27/23 16:44 Temperature 98.6 F Pulse Rate 61 82 93 Respiratory Rate 18 20 30 H Blood Pressure 156/81 H 156/83 H Pulse Oximetry 96 95 Oxygen Delivery Fraction of Inspired Oxygen 07/27/23 16:33 07/27/23 17:19 07/27/23 12:00 Temperature Pulse Rate 65 Respiratory Rate Blood Pressure 168/85 H Pulse Oximetry 94 Oxygen Delivery Mechanical Ventilation Fraction of Inspired Oxygen 30 30 07/27/23 12:00 07/27/23 16:00 07/27/23 16:00 Temperature Pulse Rate Respiratory Rate Blood Pressure Pulse Oximetry 96 94 Oxygen Delivery Mechanical Ventilation Mechanical Ventilation Fraction of Inspired Oxygen 30 30 30 07/27/23 17:44 07/27/23 18:00 07/27/23 12:00 Temperature Pulse Rate 70 67 58 L Respiratory Rate 23 H 18 Blood Pressure 156/86 H Pulse Oximetry 93 Oxygen Delivery Fraction of Inspired Oxygen 07/27/23 14:00 07/27/23 16:00 07/27/23 18:00 Temperature Pulse Rate 61 61 59 L Respiratory Rate Blood Pressure Pulse Oximetry Oxygen Delivery Fraction of Inspired Oxygen 07/27/23 18:44 07/27/23 20:10 07/27/23 20:14 Temperature Pulse Rate 65 61 62 Respiratory Rate 22 H 19 Blood Pressure Pulse Oximetry 96 Oxygen Delivery Mechanical Ventilation Fraction of Inspired Oxygen 30 07/27/23 20:24 07/27/23 20:00 07/27/23 20:50 Temperature 97.8 F Pulse Rate 62 62 63 Respiratory Rate 18 18 18 Blood Pressure 163/81 H Pulse Oximetry 96 Oxygen Delivery Fraction of Inspired Oxygen
[2023-07-28] MEDS: cefTRIAXone 2 GM/NS 100 ML 2 GM/100 ML BAG IVPB (11:48)
[2023-07-28 12:20] LABS: Glucose Point of Care 151 mg/dl (65-105)
--- NOTE | 2023-07-28 14:37 | WPDUROPN2 ---
Progress Note: A&P Assessment and Plan (1) Left ureteral stone: Code(s): N20.1 - Calculus of ureter Status: Acute Assessment and Plan: Definitive stone management which acute situation resolved (2) Septic shock: Code(s): A41.9 - Sepsis, unspecified organism; R65.21 - Severe sepsis with septic shock Status: Acute Assessment and Plan: Antibiotics and care per ICU Subjective Subjective Date/Time Seen: 07/28/23 14:37 Interval history: Remains sedated and mechanically ventilated. Exam Narrative: Sedated Mechanically ventilated Urine clear Objective Data Vital Signs Vital Signs: Vital Signs - 24 hr 07/27/23 15:44 07/27/23 15:44 07/27/23 16:00 Temperature 98.6 F Pulse Rate 64 64 82 Respiratory Rate 18 18 20 Blood Pressure 156/83 H Pulse Oximetry 95 Oxygen Delivery Fraction of Inspired Oxygen 07/27/23 16:44 07/27/23 16:33 07/27/23 17:19 Temperature Pulse Rate 93 65 Respiratory Rate 30 H Blood Pressure 168/85 H Pulse Oximetry 94 Oxygen Delivery Mechanical Ventilation Fraction of Inspired Oxygen 30 07/27/23 16:00 07/27/23 16:00 07/27/23 17:44 Temperature Pulse Rate 70 Respiratory Rate 23 H Blood Pressure Pulse Oximetry 94 Oxygen Delivery Mechanical Ventilation Fraction of Inspired Oxygen 30 30 07/27/23 18:00 07/27/23 16:00 07/27/23 18:00 Temperature Pulse Rate 67 61 59 L Respiratory Rate 18 Blood Pressure 156/86 H Pulse Oximetry 93 Oxygen Delivery Fraction of Inspired Oxygen 07/27/23 18:44 07/27/23 20:10 07/27/23 20:14 Temperature Pulse Rate 65 61 62 Respiratory Rate 22 H 19 Blood Pressure Pulse Oximetry 96 Oxygen Delivery Mechanical Ventilation Fraction of Inspired Oxygen 30 07/27/23 20:24 07/27/23 20:00 07/27/23 20:50 Temperature 97.8 F Pulse Rate 62 62 63 Respiratory Rate 18 18 18 Blood Pressure 163/81 H Pulse Oximetry 96 Oxygen Delivery Fraction of Inspired Oxygen 07/27/23 20:51 07/27/23 20:00 07/27/23 21:00 Temperature Pulse Rate 63 83 Respiratory Rate 26 H Blood Pressure Pulse Oximetry Oxygen Delivery Fraction of Inspired Oxygen 30 07/27/23 21:30 07/27/23 22:00 07/27/23 20:00 Temperature Pulse Rate 94 71 Respiratory Rate 24 H 22 H Blood Pressure Pulse Oximetry 98 Oxygen Delivery Mechanical Ventilation Fraction of Inspired Oxygen 30 07/27/23 23:25 07/27/23 20:00 07/27/23 22:00 Temperature Pulse Rate 61 61 71 Respiratory Rate Blood Pressure Pulse Oximetry 97 Oxygen Delivery Mechanical Ventilation Fraction of Inspired Oxygen 30 07/27/23 22:00 07/28/23 00:00 07/28/23 00:00 Temperature 98.4 F Pulse Rate 71 60 Respiratory Rate 22 H 18 Blood Pressure 141/77 H 172/88 H Pulse Oximetry 94 96 Oxygen Delivery Fraction of Inspired Oxygen 30 07/27/23 23:35 07/28/23 00:11 07/28/23 00:30 Temperature Pulse Rate 61 59 L Respiratory Rate 18 18 Blood Pressure 148/71 H Pulse Oximetry Oxygen Delivery Fraction of Inspired Oxygen 07/28/23 00:00 07/28/23 00:00 07/28/23 02:00 Temperature Pulse Rate 63 60 Respiratory Rate Blood Pressure Pulse Oximetry 95 Oxygen Delivery Mechanical Ventilation Fraction of Inspired Oxygen 30 07/28/23 02:00 07/28/23 02:16 07/28/23 02:28 Temperature Pulse Rate 60 60 68 Respiratory Rate 18 18 Blood Pressure 155/74 H Pulse Oximetry 95 96 Oxygen Delivery Mechanical Ventilation Fraction of Inspired Oxygen 30 07/28/23 02:34 07/28/23 02:44 07/28/23 02:35 Temperature Pulse Rate 64 67 74 Respiratory Rate 25 H 27 H 28 H Blood Pressure Pulse Oximetry Oxygen Delivery Fraction of Inspired Oxygen 07/28/23 03:00 07/28/23 04:00 07/28/23 04:00 Temperature Pulse Rate 82 Respiratory Rate 26 H Blood Pressure Pulse Oximetry 96 Oxygen Delivery Me
[2023-07-28 18:02] LABS: Glucose Point of Care 144 mg/dl (65-105)
[2023-07-28] MEDS: dexmedeTOMIDine 400 MCG/100 ML 400 MCG/100 ML BAG 42.21 MCG IV CONT (18:50)
[2023-07-28] MEDS: SUCCINYLCHOLINE CHLORIDE 20 MG/ML 10 ML VIAL 150 MG IV PUSH (19:30)
[2023-07-28] MEDS: ETOMIDATE 20 MG/10 ML AMPUL IV PUSH (19:30)
--- NOTE | 2023-07-28 19:30 | PC.NURSE ---
Patient self extubated with restraints on, RN called code due to history of difficult intubation to get resources to room. RT and ED physician in room, reintubated at 1935 placed back on ventilator and xray taken. Placed on new sedation per Dr James via telephone. RN updated family later on in shift.
[2023-07-28] MEDS: PROPOFOL IV EMULSION 100 ML 3.41 MG IV CONT (19:40)
[2023-07-28] MEDS: RAPID SEQUENCE INTUBATION KIT 1 EACH (19:53)
--- NOTE | 2023-07-28 19:53 | ED.PROCEDURE ---
Procedures Intubation Intubation Date: 07/28/23 Intubation Time: 19:40 Consent: emergent procedure Sedative: etomidate Paralytic: succinylcholine Laryngoscope: fiber optic video scope ET tube size: 7.5 Tube secured depth (cm): 24 Tube secured location: lips Tube placement confirmation: visualized tube passing through cords, equal breath sounds bilaterally, no breath sounds over epigastrium and confirmation by capnometry Patient tolerated procedure: well Intubation complications: none Additional comments: responded to Code Blue for patient who self-extubated. Remains encephalopathic, needs airway protection. Intubated at bedside without complication.
[2023-07-29] VITALS (46 sets, daily range): BP systolic 106–203; BP diastolic 60–105; PULSE 39–132; RESP 16–26; TEMP 36.6–37.9; O2SAT 96–100
[2023-07-29] MEDS: PROPOFOL IV EMULSION 100 ML 17.04 MG IV CONT (01:02)
[2023-07-29] MEDS: dexmedeTOMIDine 400 MCG/100 ML 400 MCG/100 ML BAG 12.06 MCG IV CONT (01:04)
[2023-07-29 01:11] LABS: Glucose Point of Care 125 mg/dl (65-105)
--- NOTE | 2023-07-29 02:43 | ECG_ITS ---
Measurements Intervals [place] Rate: 126 P: NH: 0 QRS: 12 QRSD: 102 T: 35 QT: 354 QTc: 513 Interpretive Statements ATRIAL FIBRILLATION WITH RAPID VENTRICULAR RESPONSE NONSPECIFIC ST & T-WAVE ABNORMALITY ABNORMAL RHYTHM ECG COMPARED TO ECG 07/27/2023 02:24:33 ATRIAL FIBRILLATION NOW PRESENT Electronically Signed On 07-29-2023 13:29:15 [employer] POLICY ANALYST by Cheyanne Santiago M.D.
[2023-07-29 03:01] LABS: Basophils Percent Auto 0.4 % (0.2-1.2); Eosinophils Absolute Auto 0.2 K/mm3 (0-0.3); Eosinophils Percent Auto 1.6 % (0-4.4); Hematocrit 32.9 % (37.0-47.0); Hemoglobin 10.3 g/dL (12.0-15.0); Immature Granulocyte Absolute 0.23 K/mm3 (0.00-0.031); Immature Granulocyte Percent A 2.5 % (0-0.5); Lymphocytes Percent Auto 11.8 % (18.3-44.2); Mean Corpuscular HGB Conc 31.3 g/dl (32-36); Mean Corpuscular Hemoglobin 28.8 pg (26-34); Mean Corpuscular Volume 91.9 fl (80-100); Mean Platelet Volume 12.5 fl (7.4-10.4); Monocytes Absolute Auto 0.6 K/mm3 (0.1-0.6); Neutrophils Absolute Auto 7.3 K/mm3 (1.3-6.7); Neutrophils Percent Auto 77.7 % (45.5-73.1); Platelet Count Result 115 k/mm3 (150-375); Red Blood Count 3.58 M/mm3 (4.2-5.4); Red Cell Distribution Width 15.7 % (11.5-14.5); White Blood Count 9.4 K/mm3 (4.5-10.0)
[2023-07-29 03:09] LABS: Triglycerides 199 mg/dL (<150)
[2023-07-29 03:10] LABS: Lactic Acid Reflex 1.1 mmol/L (0.7-2.0)
[2023-07-29 03:12] LABS: Alanine Aminotransferase 661 U/L (6-35); Albumin Level 3.2 g/dL (3.5-5.1); Alkaline Phosphatase 304 U/L (38-126); Anion Gap 10 mmol/L (8-16); Aspartate Amino Transferase 226 U/L (14-36); Bilirubin,Total 0.9 mg/dL (0.2-1.3); Blood Urea Nitrogen 81 mg/dL (7-17); Calcium 9.1 mg/dL (8.4-10.2); Carbon Dioxide 30 mmol/L (22-30); Chloride 106 mmol/L (98-107); Estimated CRCL calculation 35 ml/min; Estimated Glomerular Filt Rate 25; Glucose 124 mg/dL (65-110); Magnesium 2.2 mg/dL (1.6-2.3); Phosphorus 3.7 mg/dL (2.5-4.5); Potassium 3.3 mmol/L (3.4-5.0); Sodium 146 mmol/L (137-145)
[2023-07-29] MEDS: POTASSIUM CHLORIDE 20 MEQ PACKET (FOR LIQUID) 40 MEQ FEED TUBE (04:32)
[2023-07-29] MEDS: KCL 40 MEQ/WATER 100 ML 100 ML 25 ML IVPB (04:33)
[2023-07-29 04:48] LABS: Alveolar/Arterial O2 Gradient 94.7 mmHg; Base Excess ABG 6.9 mEq/l (+/-2.0); Carboxyhemoglobin 0.3 % THb (0-2.0); Fractional Inspired Oxygen 30 %; HCO3 ABG 29.8 mEq/l (22.0-26.0); Methemoglobin ABG 0.1 %THb (0-1.5); Oxygen Content ABG 15.6 %vol (16.0-22.0); Oxygen Saturation ABG 96.6 % (95.0-100.0); Oxyhemoglobin 94.4 % THb (90.0-100.0); PCO2 ABG 36.2 mmHg (35.0-45.0); PO2 ABG 76.7 mmHg (80.0-100.0); PO2 FiO2 Ratio Arterial Blood 2.56 %; Reduced Hemoglobin 5.2 %THb (0-5.0); Total Hemoglobin 11.7 g/dL (12.0-18.0)
[2023-07-29 04:51] LABS: Arterial Blood Gas Vent Mode CMV; Arterial Blood Gas Ventilator rate 16 /MIN; Device VENTILATOR; Modified Allen's Test Pass; Site Drawn RIGHT RADIAL; pH ABG 7.533 (7.350-7.450)
[2023-07-29 04:52] LABS: Arterial Blood Gas PEEP 8 cmH2O; Arterial Blood Gas Tidal Volume 420 ml
[2023-07-29] MEDS: CENTRAL LINE FLUSH 10 ML IV PUSH ×3 (05:23→22:27)
[2023-07-29] MEDS: MIDAZOLAM HCL (*CRX) 2 MG/2 ML VIAL IV PUSH ×2 (05:38→17:18)
[2023-07-29] MEDS: PROPOFOL IV EMULSION 100 ML 23.86 MG IV CONT (06:11)
[2023-07-29] MEDS: IPRATROPIUM BR 0.02% INH SOLN 0.5 MG/2.5 ML VIAL INHALATION ×3 (08:48→19:57)
[2023-07-29] MEDS: LEVALBUTEROL NEB 1.25 MG/3 ML 0.63 MG INHALATION ×3 (08:48→19:57)
[2023-07-29] MEDS: METOPROLOL TARTRATE 25 MG TABLET PO ×2 (09:13→20:24)
[2023-07-29] MEDS: PANTOPRAZOLE SODIUM IV 40 MG VIAL IV PUSH ×2 (09:14→20:19)
[2023-07-29] MEDS: MINERAL OIL/WHITE PETROLATUM OINTMENT 1 APPLIC EACH EYE ×2 (09:14→20:19)
[2023-07-29] MEDS: TOLNAFTATE 1% POWDER 45 GM BTL 1 APPLIC TOPICAL ×2 (09:14→20:19)
[2023-07-29] MEDS: ENOXAPARIN 40 MG/0.4 ML SYRINGE SUB-Q (09:14)
--- NOTE | 2023-07-29 09:50 | P.PNNP_ITS ---
Progress Note: A&P Assessment and Plan (1) Acute kidney injury: Code(s): N17.9 - Acute kidney failure, unspecified Status: Acute Assessment and Plan: * ongoing improvement noted * presumably secondary to left nephrolithiasis with associated hydronephrosis along with septic shock * normal renal function at baseline (from labs ~ 2 years ago) * PRN IV diuretics given edema issues * follow repeat labs and UOP (2) Septic shock: Code(s): A41.9 - Sepsis, unspecified organism; R65.21 - Severe sepsis with septic shock Status: Acute Assessment and Plan: * resolving * as noted on admission with leukocytosis, hypotension, lactic acidosis and KIM/ARF * secondary to UTI, nephrolithiasis, and possible pyelonephritis * s/p IVF resuscitation * vasopressor support to maintain MAP/BP - currently off * follow culture data - results noted * on antibiotics * follow hemodynamics (3) Acute hypoxic respiratory failure: Code(s): J96.01 - Acute respiratory failure with hypoxia Status: Acute Assessment and Plan: * due septic shock and recent operative intervention * ventilator weaning once more stable * follow CXR and ABGs. (4) Acute non-ST elevation myocardial infarction (NSTEMI): Code(s): I21.4 - Non-ST elevation (NSTEMI) myocardial infarction Status: Acute Assessment and Plan: * elevated troponins noted * presumably precipitated by septic shock and demand ischemia from underlying acute medical issues * Cardiology recommendations noted (5) Left nephrolithiasis: Code(s): N20.0 - Calculus of kidney Status: Acute Assessment and Plan: * Urology following * s/p cystoscopy, left retrograde pyelogram, left ureteral stent insertion and Byers catheter plaement (on 07/23) (6) Iron deficiency anemia secondary to blood loss (chronic): Code(s): D50.0 - Iron deficiency anemia secondary to blood loss (chronic) Status: Acute Assessment and Plan: * known history * suspect hemoglobin may fluctuate further give acute medical issues * follow trend of H/H Will continue to follow. Subjective Date/time seen: 07/29/23 09:50 Interval history: Follow-up for acute kidney injry/acute renal failure. Apparently self-extubated yesterday but was unable to protect her airway [facility] physician re-intubated patient without any issues or problems; urine output remains good with improvement in renal function despite ongoing diuresis; stable hemodynamics noted as well; remains on mechanical ventilation. Exam Narrative: General: large but WD/WN female intubated/sedated on mechanical ventilation Heart: normal S1 and S2; no rub Lungs: coarse breath sounds noted Abdomen: soft, nontender, nondistended, positive bowel sounds Extremities: no cyanosis or clubbing; trace - 1+ edema Skin: warm and dry Objective Data Vital Signs Vital Signs: Vital Signs Temp Pulse Resp BP Pulse Ox O2 Del Method FiO2 07/29/23 09:13 98 07/29/23 08:00 99.2 F 101 H 24 H 158/87 H 97 07/29/23 06:40 88 24 H 07/29/23 06:25 90 24 H 07/29/23 04:00 118 H 07/29/23 06:00 86 21 H 149/75 H 97 07/29/23 06:00 86 07/29/23 06:11 85 20 07/29/23 05:35 77 24 H 07/29/23 04:00 99 Mechanical Ventilat
--- NOTE | 2023-07-29 09:50 | PM.PNNEP ---
Progress Note: A&P Assessment and Plan (1) Acute kidney injury: Code(s): N17.9 - Acute kidney failure, unspecified Status: Acute Assessment and Plan: ongoing improvement noted presumably secondary to left nephrolithiasis with associated hydronephrosis along with septic shock normal renal function at baseline (from labs ~ 2 years ago) PRN IV diuretics given edema issues follow repeat labs and UOP (2) Septic shock: Code(s): A41.9 - Sepsis, unspecified organism; R65.21 - Severe sepsis with septic shock Status: Acute Assessment and Plan: resolving as noted on admission with leukocytosis, hypotension, lactic acidosis and KIM/ARF secondary to UTI, nephrolithiasis, and possible pyelonephritis s/p IVF resuscitation vasopressor support to maintain MAP/BP - currently off follow culture data - results noted on antibiotics follow hemodynamics (3) Acute hypoxic respiratory failure: Code(s): J96.01 - Acute respiratory failure with hypoxia Status: Acute Assessment and Plan: due septic shock and recent operative intervention ventilator weaning once more stable follow CXR and ABGs. (4) Acute non-ST elevation myocardial infarction (NSTEMI): Code(s): I21.4 - Non-ST elevation (NSTEMI) myocardial infarction Status: Acute Assessment and Plan: elevated troponins noted presumably precipitated by septic shock and demand ischemia from underlying acute medical issues Cardiology recommendations noted (5) Left nephrolithiasis: Code(s): N20.0 - Calculus of kidney Status: Acute Assessment and Plan: Urology following s/p cystoscopy, left retrograde pyelogram, left ureteral stent insertion and Byers catheter plaement (on 07/23) (6) Iron deficiency anemia secondary to blood loss (chronic): Code(s): D50.0 - Iron deficiency anemia secondary to blood loss (chronic) Status: Acute Assessment and Plan: known history suspect hemoglobin may fluctuate further give acute medical issues follow trend of H/H Will continue to follow. Subjective Date/time seen: 07/29/23 09:50 Interval history: Follow-up for acute kidney injry/acute renal failure. Apparently self-extubated yesterday but was unable to protect her airway sone ER physician re-intubated patient without any issues or problems; urine output remains good with improvement in renal function despite ongoing diuresis; stable hemodynamics noted as well; remains on mechanical ventilation. Exam Narrative: General: large but WD/WN female intubated/sedated on mechanical ventilation Heart: normal S1 and S2; no rub Lungs: coarse breath sounds noted Abdomen: soft, nontender, nondistended, positive bowel sounds Extremities: no cyanosis or clubbing; trace - 1+ edema Skin: warm and dry Objective Data Vital Signs Vital Signs: Vital Signs Temp Pulse Resp BP Pulse Ox O2 Del Method FiO2 07/29/23 09:13 98 07/29/23 08:00 99.2 F 101 H 24 H 158/87 H 97 07/29/23 06:40 88 24 H 07/29/23 06:25 90 24 H 07/29/23 04:00 118 H 07/29/23 06:00 86 21 H 149/75 H 97 07/29/23 06:00 86 07/29/23 06:11 85 20 07/29/23 05:35 77 24 H 07/29/23 04:00 99 Mechanical Ventilation 30 07/29/23 04:00 30 07/29/23 05:24 80 21 H 07/29/23 04:42 132 H 97 Mechanical Ventilation 30 07/29/23 04:00 98.1 F 126 H 20 111/83 99 07/29/23 03:00 120 H 20 07/29/23 02:37 39 L 16 07/29/23 03:25 105 H 19 07/29/23 03:26 105 H 99 Mechanical Ventilation 30 07/29/23 03:15 107 H 19 07/29/23 02:00 105 H 16 106/74 97 07/29/23 02:00 105 H 07/29/23 00:00 98 Mechanical Ventilation 40 07/29/23 01:07 30 07/29/23 00:00 98 F 110 H 17 107/60 98 07/29/23 00:00 102 H 07/29/23 01:03 107 H 99 Mechanical V
[2023-07-29] MEDS: QUEtiapine FUMARATE 12.5 MG TABLET PO ×2 (11:06→20:19)
--- NOTE | 2023-07-29 11:16 | PCNFU ---
Nutrition Follow-Up Complete: Inadequate Oral Intake as related to mechanical ventilation as evidenced by NPO. Goal: Meet estimated nutritional needs Patient is progressing towards goal. We will continue current goal. Pt current nutrition is Nepro at 40 ml/hr. Last recorded weight is 114.8 kg, down from 114.4 kg on admit. Bowel Motility:+Bm reported 07/28 Labs Reviewed:TG 199, GFR 25, K 3.3, BUN 81, Cr 2.0,Glu 124, Na 146, Hct 32.9,Hgb 10.3 Meds Noted:Heparin, Lopressor,Atrovent. Skin:WNL Additional Notes: Patient remains on mechanical vent. No sedation. Tube feedings continue of Nepro at 40 ml/hr-tolering per nursing. Renal labs trending down. Nepro at 40 ml/hr providing 1584 kcals/72 gms protein/640 ml water. Flush 30 ml q 4 hours. Will continue to monitor for increased flush needs. Tube feedings meeting 100% kcal needs at 13 kcal/kg and 50% of protein needs at 1.2-1.4 gm/kg. If patient remains on tube feedings recommend changing to Vital HP at 70 ml/hr to better meet protein needs. Will continue to monitor. Will monitor, weight,labs, skin, feeding every Friday and Friday.
[2023-07-29] MEDS: cefTRIAXone 2 GM/NS 100 ML 2 GM/100 ML BAG IVPB (11:20)
[2023-07-29] MEDS: PROPOFOL IV EMULSION 100 ML 34.08 MG IV CONT ×5 (11:20→23:05)
[2023-07-29 11:48] LABS: Ammonia < 9 umol/L (9-30)
[2023-07-29 11:50] LABS: Glucose Point of Care 91 mg/dl (65-105)
--- NOTE | 2023-07-29 14:22 | WPDINTPN ---
Progress Note: A&P Assessment and Plan (1) Encephalopathy: Code(s): G93.40 - Encephalopathy, unspecified Status: Acute Assessment and Plan: Encephalopathy could be related to sedation medication, uremia -patient with good urine output, improving creatinine, liver function. -sedation should be out of her system -continue propofol as patient has been agitated on Precedex 1.5 mcg -started Seroquel 12.5 mg q.12 -ammonia levels <9 -07/28/[address]: No significant abnormalities noted (2) Acute hypoxic respiratory failure: Code(s): J96.01 - Acute respiratory failure with hypoxia Status: Acute Assessment and Plan: Acute respiratory failure likely related septic shock, status post cystoscopy, pyelogram, left ureteral stent insertion, Byers catheter insertion on 07/23/2023. Patient was intubated for the procedure on 07/23 -currently on CMV mode of ventilation, peep of 8 and 30% FiO2 -chest x-ray and ABGs reviewed -continue bronchodilators -patient diuresing well please for the last 3 days -07/29 will hold diuresis today -patient patient was on Precedex infusion, was agitated and self-extubated overnight. Patient was really intubated for airway protection and altered mentation. -07/29 Overnight self extubated, could not protect her airway so ER physician re intubated the patient without any difficulty. Stated that her trachea was anterior, but no significant difficulty in intubation. (3) Septic shock: Code(s): A41.9 - Sepsis, unspecified organism; R65.21 - Severe sepsis with septic shock Status: Acute Assessment and Plan: RESOLVED Septic shock likely related to UTI, nephrolithiasis, pyelonephritis -patient was hypotensive, received 3 L IV fluids in the ER and the OR -lactic acid acid has normalized -patient off epinephrine, vasopressin. -off Levophed -off stress dose steroids -mild improvement in urine output but worsening renal function -07/23/2023: Blood cultures growing Klebsiella pneumonia, parents since -07/23/2023 urine culture: No growth -discontinued meropenem on 07/28 - continue vancomycin, (07/23) ceftriaxone (07/28) (4) Acute non-ST elevation myocardial infarction (NSTEMI): Code(s): I21.4 - Non-ST elevation (NSTEMI) myocardial infarction Status: Acute Assessment and Plan: NSTEMI with elevated troponins likely related to septic shock -patient was started on heparin infusion after discussing with urologist overnight -appreciate cardiology consult -EKG showed sinus tachycardia with some ST-T changes multiple leads, no ST elevation elevation -patient also went into AFib RVR for a brief period of time and converted back to sinus rhythm which most likely related to severe acidosis -heparin infusion was discontinued after discussing with Cardiology as it was thought that she went into AFib secondary to underlying issues and given that she has been thrombocytopenic and anemic (5) Acute kidney injury: Code(s): N17.9 - Acute kidney failure, unspecified Status: Acute Assessment and Plan: Patient with acute kidney injury likely related to left nephrolithiasis and left hydronephrosis -adequately fluid-resuscitated -lactic acid normalized -07/27: discontinue bicarb infusion as his CO2 has improved on the BMP -appreciate nephrology evaluation and recommendation -continue to monitor urine output, renal function and electrolytes -patient diuresed do very well with Bumex on 07/26, 07/27, 07/28 -will diuresis today -good urine output with improvement in her creatinine, continue to monitor (6) Left nephrolithiasis: Code(s): N20.0 - Calculus of kidney Status: Acute Assessment and Plan: left UPJ stone, Cystoscopy, left retrograde pyelogram, left ureteral stent insertion, Byers catheter insertion on 07/23/2023. -urology following the patient (7) Acute UTI: Code(s): N39.0 - Urinary tract infection, site not specified
[2023-07-29] MEDS: hydrALAZINE HCL 20 MG/ML VIAL 10 MG IV PUSH ×2 (14:35→22:17)
[2023-07-29 17:57] LABS: Glucose Point of Care 91 mg/dl (65-105)
[2023-07-29] MEDS: METOPROLOL TARTRATE INJ 5 MG/5 ML VIAL IV PUSH (20:17)
[2023-07-30] VITALS (50 sets, daily range): BP systolic 104–181; BP diastolic 53–90; PULSE 68–169; RESP 16–36; TEMP 37–37.9; O2SAT 92–99
[2023-07-30 01:04] LABS: Glucose Point of Care 120 mg/dl (65-105)
[2023-07-30] MEDS: LEVALBUTEROL NEB 1.25 MG/3 ML 0.63 MG INHALATION ×4 (01:22→20:32)
[2023-07-30] MEDS: IPRATROPIUM BR 0.02% INH SOLN 0.5 MG/2.5 ML VIAL INHALATION ×4 (01:22→20:32)
[2023-07-30] MEDS: PROPOFOL IV EMULSION 100 ML 34.08 MG IV CONT ×3 (01:56→07:48)
[2023-07-30] MEDS: CENTRAL LINE FLUSH 10 ML IV PUSH ×3 (05:28→21:32)
[2023-07-30 05:31] LABS: Basophils Percent Auto 0.4 % (0.2-1.2); Eosinophils Absolute Auto 0.2 K/mm3 (0-0.3); Eosinophils Percent Auto 2.4 % (0-4.4); Hematocrit 30.1 % (37.0-47.0); Hemoglobin 9.3 g/dL (12.0-15.0); Immature Granulocyte Absolute 0.13 K/mm3 (0.00-0.031); Immature Granulocyte Percent A 1.4 % (0-0.5); Lymphocytes Absolute Auto 1.03 K/mm3 (0.9-3.2); Lymphocytes Percent Auto 11.2 % (18.3-44.2); Mean Corpuscular HGB Conc 30.9 g/dl (32-36); Mean Corpuscular Volume 93.8 fl (80-100); Mean Platelet Volume 11.8 fl (7.4-10.4); Monocytes Absolute Auto 0.5 K/mm3 (0.1-0.6); Monocytes Percent Auto 5.8 % (2.6-8.5); Neutrophils Absolute Auto 7.3 K/mm3 (1.3-6.7); Neutrophils Percent Auto 78.8 % (45.5-73.1); Platelet Count Result 150 k/mm3 (150-375); Red Blood Count 3.21 M/mm3 (4.2-5.4); White Blood Count 9.2 K/mm3 (4.5-10.0)
[2023-07-30 05:43] LABS: Alanine Aminotransferase 365 U/L (6-35); Albumin Level 2.9 g/dL (3.5-5.1); Alkaline Phosphatase 293 U/L (38-126); Anion Gap 8 mmol/L (8-16); Aspartate Amino Transferase 86 U/L (14-36); Bilirubin,Total 0.8 mg/dL (0.2-1.3); Blood Urea Nitrogen 58 mg/dL (7-17); Calcium 8.8 mg/dL (8.4-10.2); Carbon Dioxide 29 mmol/L (22-30); Chloride 109 mmol/L (98-107); Estimated CRCL calculation 46 ml/min; Estimated Glomerular Filt Rate 35; Glucose 115 mg/dL (65-110); Phosphorus 4.3 mg/dL (2.5-4.5); Potassium 3.7 mmol/L (3.4-5.0); Sodium 146 mmol/L (137-145)
[2023-07-30 05:54] LABS: Alveolar/Arterial O2 Gradient 69.5 mmHg; Base Excess ABG 3.5 mEq/l (+/-2.0); Carboxyhemoglobin 0.3 % THb (0-2.0); Device VENTILATOR; Fractional Inspired Oxygen 30 %; HCO3 ABG 26.5 mEq/l (22.0-26.0); Methemoglobin ABG 0.2 %THb (0-1.5); Modified Allen's Test Pass; Oxygen Content ABG 15.7 %vol (16.0-22.0); Oxygen Saturation ABG 98.2 % (95.0-100.0); Oxyhemoglobin 96.4 % THb (90.0-100.0); PCO2 ABG 34.8 mmHg (35.0-45.0); PO2 ABG 103.5 mmHg (80.0-100.0); PO2 FiO2 Ratio Arterial Blood 3.45 %; Reduced Hemoglobin 3.1 %THb (0-5.0); Site Drawn RIGHT RADIAL; Total Hemoglobin 11.5 g/dL (12.0-18.0)
[2023-07-30 05:55] LABS: Arterial Blood Gas PEEP 8 cmH2O; Arterial Blood Gas Tidal Volume 420 ml; Arterial Blood Gas Vent Mode CMV; Arterial Blood Gas Ventilator rate 16 /MIN
[2023-07-30] MEDS: PANTOPRAZOLE SODIUM IV 40 MG VIAL IV PUSH ×2 (08:46→21:25)
[2023-07-30] MEDS: METOPROLOL TARTRATE 25 MG TABLET PO ×2 (08:46→21:24)
[2023-07-30] MEDS: POTASSIUM BICARBONATE 25 MEQ TABEF 50 MEQ FEED TUBE (08:57)
[2023-07-30] MEDS: METOPROLOL TARTRATE INJ 5 MG/5 ML VIAL IV PUSH (09:31)
[2023-07-30] MEDS: MINERAL OIL/WHITE PETROLATUM OINTMENT 1 APPLIC EACH EYE ×2 (09:32→21:24)
[2023-07-30] MEDS: TOLNAFTATE 1% POWDER 45 GM BTL 1 APPLIC TOPICAL ×2 (09:32→21:25)
[2023-07-30] MEDS: ENOXAPARIN 40 MG/0.4 ML SYRINGE SUB-Q (09:36)
--- NOTE | 2023-07-30 11:00 | PM.PNNEP ---
Progress Note: A&P Assessment and Plan (1) Acute kidney injury: Code(s): N17.9 - Acute kidney failure, unspecified Status: Acute Assessment and Plan: ongoing improvement noted presumably secondary to left nephrolithiasis with associated hydronephrosis along with septic shock normal renal function at baseline (from labs ~ 2 years ago) PRN IV diuretics given edema issues follow repeat labs and UOP (2) Septic shock: Code(s): A41.9 - Sepsis, unspecified organism; R65.21 - Severe sepsis with septic shock Status: Acute Assessment and Plan: resolving as noted on admission with leukocytosis, hypotension, lactic acidosis and KIM/ARF secondary to UTI, nephrolithiasis, and possible pyelonephritis s/p IVF resuscitation vasopressor support to maintain MAP/BP - currently off follow culture data - results noted on antibiotics follow hemodynamics (3) Acute hypoxic respiratory failure: Code(s): J96.01 - Acute respiratory failure with hypoxia Status: Acute Assessment and Plan: due septic shock and recent operative intervention ventilator weaning once more stable follow CXR and ABGs. (4) Acute non-ST elevation myocardial infarction (NSTEMI): Code(s): I21.4 - Non-ST elevation (NSTEMI) myocardial infarction Status: Acute Assessment and Plan: elevated troponins noted presumably precipitated by septic shock and demand ischemia from underlying acute medical issues Cardiology recommendations noted (5) Left nephrolithiasis: Code(s): N20.0 - Calculus of kidney Status: Acute Assessment and Plan: Urology following s/p cystoscopy, left retrograde pyelogram, left ureteral stent insertion and Byers catheter plaement (on 07/23) (6) Iron deficiency anemia secondary to blood loss (chronic): Code(s): D50.0 - Iron deficiency anemia secondary to blood loss (chronic) Status: Acute Assessment and Plan: known history suspect hemoglobin may fluctuate further give acute medical issues follow trend of H/H Will continue to follow. Subjective Date/time seen: 07/30/23 11:00 Interval history: Follow-up for acute kidney injury/acute renal failure Special Services Director new issues or problems at this time; remains on mechanical ventilation; hemodynamically stable; ongoing improvement in renal function noted with good urine output. Exam Narrative: General: large but WD/WN female intubated/sedated on mechanical ventilation Heart: normal S1 and S2; no rub Lungs: coarse breath sounds noted Abdomen: soft, nontender, nondistended, positive bowel sounds Extremities: no cyanosis or clubbing; trace - 1+ edema Skin: warm and intact Objective Data Vital Signs Vital Signs: Vital Signs Temp Pulse Resp BP Pulse Ox O2 Del Method FiO2 07/30/23 11:00 100.3 F H 86 21 104/53 L 96 Mechanical Ventilation 30 07/30/23 10:45 68 20 07/30/23 10:30 74 20 07/30/23 09:45 168 H 36 H 07/30/23 08:30 162 H 25 H 07/30/23 10:00 100.1 F H 164 H 28 H 121/71 98 07/30/23 08:00 99.0 F 105 H 16 181/90 H 92 07/30/23 10:30 74 20 07/30/23 09:45 168 H 36 H 07/30/23 09:25 168 H 25 H 07/30/23 08:40 165 H 32 H 07/30/23 11:04 85 96 Mechanical Ventilation 30 07/30/23 08:00 30 07/30/23 08:00 97 Mechanical Ventilation 30 07/30/23 08:00 105 H 07/30/23 09:31 168 H 07/30/23 08:46 169 H 07/30/23 08:32 133 H 97 Mechanical Ventilation 30 07/30/23 08:10 97 20 07/30/23 08:10 97 97 Mechanical Ventilation 30 07/30/23 07:48 103 H 20 07/30/23 07:48 103 H 20 07/30/23 06:00 107 H 07/30/23 06:30 98.7 F 97 18 146/67 H 97 07/30/23 04:00 98 Mechanical Ventilation 30 07/30/23 04:00 69 07/30/23 04:00 30 07/30/23 05:43 94 98 Mechanical Ventilation 30
--- NOTE | 2023-07-30 11:00 | P.PNNP_ITS ---
Progress Note: A&P Assessment and Plan (1) Acute kidney injury: Code(s): N17.9 - Acute kidney failure, unspecified Status: Acute Assessment and Plan: * ongoing improvement noted * presumably secondary to left nephrolithiasis with associated hydronephrosis along with septic shock * normal renal function at baseline (from labs ~ 2 years ago) * PRN IV diuretics given edema issues * follow repeat labs and UOP (2) Septic shock: Code(s): A41.9 - Sepsis, unspecified organism; R65.21 - Severe sepsis with septic shock Status: Acute Assessment and Plan: * resolving * as noted on admission with leukocytosis, hypotension, lactic acidosis and KIM/ARF * secondary to UTI, nephrolithiasis, and possible pyelonephritis * s/p IVF resuscitation * vasopressor support to maintain MAP/BP - currently off * follow culture data - results noted * on antibiotics * follow hemodynamics (3) Acute hypoxic respiratory failure: Code(s): J96.01 - Acute respiratory failure with hypoxia Status: Acute Assessment and Plan: * due septic shock and recent operative intervention * ventilator weaning once more stable * follow CXR and ABGs. (4) Acute non-ST elevation myocardial infarction (NSTEMI): Code(s): I21.4 - Non-ST elevation (NSTEMI) myocardial infarction Status: Acute Assessment and Plan: * elevated troponins noted * presumably precipitated by septic shock and demand ischemia from underlying acute medical issues * Cardiology recommendations noted (5) Left nephrolithiasis: Code(s): N20.0 - Calculus of kidney Status: Acute Assessment and Plan: * Urology following * s/p cystoscopy, left retrograde pyelogram, left ureteral stent insertion and Byers catheter plaement (on 07/23) (6) Iron deficiency anemia secondary to blood loss (chronic): Code(s): D50.0 - Iron deficiency anemia secondary to blood loss (chronic) Status: Acute Assessment and Plan: * known history * suspect hemoglobin may fluctuate further give acute medical issues * follow trend of H/H Will continue to follow. 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 Exam Narrative: General: large but WD/WN female intubated/sedated on mechanical ventilation Heart: normal S1 and S2; no rub Lungs: coarse breath sounds noted Abdomen: soft, nontender, nondistended, positive bowel sounds Extremities: no cyanosis or clubbing; trace - 1+ edema Skin: warm and intact Objective Data Vital Signs Vital Signs: Vital Signs Temp Pulse Resp BP Pulse Ox O2 Del Method FiO2 07/30/23 11:00 100.3 F H 86 21 104/53 L 96 Mechanical Ventilation 30 07/30/23 10:45 68 20 07/30/23 10:30 74 20 07/30/23 09:45 168 H 36 H 07/30/23 08:30 162 H 25 H 07/30/23 10:00 100.1 F H 164 H 28 H 121/71 98 07/30/23 08:00 99.0 F 105 H 16 181/90 H 92 07/30/23 10:30 74 20 07/30/23 09:45 168 H 36 H 07/30/23 09:25 168 H 25 H 07/30/23 08:40 165 H 32 H 07/30/23 11:04
[2023-07-30] MEDS: dexmedeTOMIDine 400 MCG/100 ML 400 MCG/100 ML BAG 15.08 MCG IV CONT (11:22)
[2023-07-30 11:56] LABS: Free T4 Free Thyroxine Reflex 1.54 ng/dL (0.78-2.19)
--- NOTE | 2023-07-30 12:04 | WPDNEURCNPN ---
Assessment and Plan Assessment and plan (1) Encephalopathy: Code(s): G93.40 - Encephalopathy, unspecified Status: Acute Plan 1 encephalopathic will obtain the EEG to evaluate the neurological status the CT scan of the head has been done more than 48hours ago was negative for any acute bleed or hydrocephalus 2. Discussed with the daughter who happened to be in the room and briefed her about all the situation thank you Consult date: 07/30/23 HPI: Olesya Pappas is a 58 year old female Was admitted to the [facility] through the emergency room on July 23, 2023 for the complaints of generalized weakness with left flank pain dating back to about 40 years ago associated with the generalized myalgia in addition to the couple of episodes of loose stools which were dark in color but patient had been taking the iron supplementation for chronic anemia and she was young that was normal for her she dailyhave ongoing history of renal stone and had been in contact with a primary physician to go to the outpatient imaging but as she was unable to contact them she came to the emergency room she had no history of any other generalized symptomatology at that particular time. She was taking multiple medication but mainly pantoprazole 40mg daily and vitamin supplements she has been noted to be allergic to meperidine gabapentin and duloxetine and past history was consistent with 1. Complex regional pain syndrome of left lower extremity 2. Generalized anxiety disorder 3. History of hiatal hernia she has undergone partial hysterectomy as well she has never smoker never alcohol intake and her initial examination was grossly nonfocal she was treated for the left ureteral stone and sepsis along with cystoscopy left retrograde pyelogram left ureteral stent and admitted on 07/23 with diagnosis of septic shock and possibility of acute tubular necrosis, she was seen by the wireworker for the acute non ST elevated myocardial infarction on July 23, 2029 because of the increasing trend in troponin, patient has been evaluated by the formation fracturing operator also because of the anemia, and she is still being treated for the sepsis with most recent CBC revealing the hemoglobin 9.3 with WBC of 9.2 MCV 93.8 MCHC 30.9 most recent chest x-ray reveals central congestive changes the possibility her cultures are positive on blood for the Klebsiella pneumoniae, present she is being treated for the encephalopathy being attributed to sedation medication or uremia but with good urine output improving creatinine and liver functions and hoping the sedation out of her system but the propofol has been continued because of the agitation in addition she has been started on Seroquel 12.5mg q.12 hours last night her she extubated herself and then was very intubated ammonia level is less than 9. Neuro consultation has been obtained to evaluate the further status PMF Past Medical History Medical History Acute upper GI bleed Complex regional pain syndrome i of left lower limb Generalized anxiety disorder Hiatal hernia egd : hiatal hernia Left ureteral stone Sepsis Surgical History Surgical History History of partial hysterectomy (~1999) Family History Family History Mother Family history of malignant neoplasm Family history of diabetes mellitus in first degree relative Other Diabetes mellitus Social History Social History Smoking status: Never smoker Alcohol intake: never Substance use: never Lack of Transportation: No Lack of Food: Never True Current Housing: I Have Housing Concerned About Future Housing: No Difficulty Paying Gas/Electric Bills: No Currently Unemployed: No Education: Grade School Difficulty w/ Childcare or Family Care: No
--- NOTE | 2023-07-30 12:12 | WPDINTPN ---
Progress Note: A&P Assessment and Plan (1) Encephalopathy: Code(s): G93.40 - Encephalopathy, unspecified Status: Acute Assessment and Plan: Multifactorial toxic metabolic encephalopathy secondary to sepsis, general anesthesia, sedation, uremia, acute on chronic renal failure Patient on holding sedation moves all 4 extremity but does not follow commands Gets agitated and goes into AFib RVR Continue propofol, hold all other long-acting sedatives. Will titrate up Precedex for evaluation -ammonia levels <9 -07/28/[address]: No significant abnormalities noted Check TSH Consult neurology (2) Acute hypoxic respiratory failure: Code(s): J96.01 - Acute respiratory failure with hypoxia Status: Acute Assessment and Plan: Acute respiratory failure likely related septic shock, status post cystoscopy, pyelogram, left ureteral stent insertion, Byers catheter insertion on 07/23/2023. Patient was intubated for the procedure on 07/23 -currently on CMV mode of ventilation, peep of 8 and 30% FiO2. Decrease tidal volume -chest x-ray and ABGs reviewed -continue bronchodilators -patient has been receiving diuretics -07/29 Overnight self extubated, could not protect her airway so ER physician re intubated the patient without any difficulty. Stated that her trachea was anterior, but no significant difficulty in intubation. Weaning has been limited by patient's mental status and encephalopathy (3) Septic shock: Code(s): A41.9 - Sepsis, unspecified organism; R65.21 - Severe sepsis with septic shock Status: Acute Assessment and Plan: RESOLVED Septic shock likely related to UTI, nephrolithiasis, pyelonephritis -patient was hypotensive, received 3 L IV fluids in the ER and the OR -lactic acid acid has normalized -patient off vasopressors -off stress dose steroids -mild improvement in urine output but worsening renal function -07/23/2023: Blood cultures growing Klebsiella pneumonia -07/23/2023 urine culture: No growth -discontinued meropenem on 07/28 -I will discontinue vancomycin (07/23) and continue ceftriaxone (07/28) (4) Acute kidney injury: Code(s): N17.9 - Acute kidney failure, unspecified Status: Acute Assessment and Plan: Patient with acute kidney injury likely related to left nephrolithiasis and left hydronephrosis, sepsis and shock -adequately fluid-resuscitated -lactic acid normalized -07/27: discontinue bicarb infusion as his CO2 has improved on the BMP -nephrology following -continue to monitor urine output, renal function and electrolytes -patient diuresed do very well with Bumex on 07/26, 07/27, 07/28 -will diuresis today -creatinine improving and is down to 1.5 today. Monitor (5) Left nephrolithiasis: Code(s): N20.0 - Calculus of kidney Status: Acute Assessment and Plan: left UPJ stone, Cystoscopy, left retrograde pyelogram, left ureteral stent insertion, Byers catheter insertion on 07/23/2023. -urology following the patient (6) Acute UTI: Code(s): N39.0 - Urinary tract infection, site not specified Status: Acute Assessment and Plan: UA reflective of UTI likely related to left nephrolithiasis and hydronephrosis -continue antibiotics as above, cultures as above (7) Iron deficiency anemia secondary to blood loss (chronic): Code(s): D50.0 - Iron deficiency anemia secondary to blood loss (chronic) Status: Acute Assessment and Plan: Patient with a history of iron deficiency anemia on iron pills at home -continue to monitor hemoglobin 07/25: Hemoglobin 7.1 this morning, transfuse 1 unit of packed RBCs -appreciate GI evaluation and recommendations -hemoglobin is stable (8) Atrial fibrillation: Code(s): I48.91 - Unspecified atrial fibrillation Status: Acute Assessment and Plan: Patient in AFib with intermittent RVR specially when off sedation -patient was not started on any anticoagu
[2023-07-30 12:33] LABS: Glucose Point of Care 149 mg/dl (65-105)
[2023-07-30] MEDS: cefTRIAXone 2 GM/NS 100 ML 2 GM/100 ML BAG IVPB (12:39)
--- NOTE | 2023-07-30 13:10 | PCNFU ---
Nutrition Follow-Up Complete: Inadequate Oral Intake as related to mechanical ventilation as evidenced by NPO. Goal: Meet estimated nutritional needs Patient will continue with goal. Pt current nutrition is Nepro at 40 ml/hr. Last recorded weight is 114.4 kg, down from 116.4 kg on admit. Bowel Motility: +Bm reported 07/29 Labs Reviewed:Glu 115,GFR 35, ,BUN 58, Cr 1.5,Alb 2.9,Na 146 Meds Noted:Propofol 30 mcgs titrating down, Seroquel, Heparin, Protonix, Precedex. Skin:WNL Additional Notes: Patient remains on mechanical vent. Requiring increased sedation needs. Propofol is providing an additional 536 kcals at this time. Nursing plans to continue to titrate down. Tube feedings of Nepro at 40 ml/hr providing 1584kcals/72 gms protein/640 ml water. Flush increased to 100 ml q 4 hours from 30 ml 2/2 to Na 146. Spoke with nursing and Assistant Import Manager today regarding Propofol infusion, at this time I will recommend to continue current rate and will continue to monitor infusion for possible tube feeding rate changes. Will monitor, weight,labs, skin, feeding every Friday and Friday.
[2023-07-30 13:39] LABS: Total Triiodothyronine (T3) 0.78 NG/ML (0.97-1.69)
--- NOTE | 2023-07-30 15:50 | PM.IMPN ---
Progress Note: A&P Assessment and Plan (1) Encephalopathy: Code(s): G93.40 - Encephalopathy, unspecified Status: Acute Assessment and Plan: Multifactorial toxic metabolic encephalopathy secondary to sepsis, general anesthesia, sedation, uremia, acute on chronic renal failure Patient does not follow commands Plan to consult Neurology CT head done recently with no acute abnormalities (2) Acute hypoxic respiratory failure: Code(s): J96.01 - Acute respiratory failure with hypoxia Status: Acute Assessment and Plan: Acute respiratory failure likely related septic shock, status post cystoscopy, pyelogram, left ureteral stent insertion, Byers catheter insertion on 07/23/2023. Patient was intubated for the procedure on 07/23 Self extubated on 07/29, could not protect her airway so was reintubated. Vent management as per body corporate manager (3) Septic shock: Code(s): A41.9 - Sepsis, unspecified organism; R65.21 - Severe sepsis with septic shock Status: Acute Assessment and Plan: Shock has resolved Septic shock likely related to UTI, kidney stones, pyelonephritis She is off vasopressors, often stress dose steroids Blood culture from 07/23/2023 growing Klebsiella Vancomycin has been discontinued, continue with ceftriaxone (4) Acute kidney injury: Code(s): N17.9 - Acute kidney failure, unspecified Status: Acute Assessment and Plan: Kidney function continues to improve Avoid nephrotoxins Recheck BMP in a.m. (5) Left nephrolithiasis: Code(s): N20.0 - Calculus of kidney Status: Acute Assessment and Plan: left UPJ stone, Cystoscopy, left retrograde pyelogram, left ureteral stent insertion, Byers catheter insertion on 07/23/2023. Management as per Urology (6) Acute UTI: Code(s): N39.0 - Urinary tract infection, site not specified Status: Acute (7) Iron deficiency anemia secondary to blood loss (chronic): Code(s): D50.0 - Iron deficiency anemia secondary to blood loss (chronic) Status: Acute Assessment and Plan: Status post 1 unit of PRBC on 07/25/23 Appreciate GI help (8) Atrial fibrillation: Code(s): I48.91 - Unspecified atrial fibrillation Status: Acute Assessment and Plan: Intermittent AFib when off sedation Cardiology has been following Currently in sinus rhythm Continue with metoprolol, aspirin Patient has not been started on anticoagulation due to anemia, required blood transfusion (9) Elevated LFTs: Code(s): R79.89 - Other specified abnormal findings of blood chemistry Status: Acute Assessment and Plan: Secondary to shock liver Hepatitis panel was negative Right upper quadrant ultrasound showed chronic cholecystitis Trend LFTs, slowly improving (10) Acute non-ST elevation myocardial infarction (NSTEMI): Code(s): I21.4 - Non-ST elevation (NSTEMI) myocardial infarction Status: Acute Assessment and Plan: NSTEMI with elevated troponins in setting of septic shock -patient was started on heparin drip but had to be stopped due to thrombocytopenia anemia requiring transfusion -appreciate cardiology consult Time Spent With Patient Time with patient: 15 - 25 minutes Subjective Date/time seen: 07/30/23 15:50 Interval history: Remains intubated Review of Systems Review of Systems: ROS unobtainable: Yes unobtainable due to endotracheal tube and unobtainable due to medical condition Exam Narrative: General: Obese female, intubated and sedated in no distress HEENT:? Pupils equal and reactive, sclera is clear Neck:? Supple Respiratory:? Coarse breath sounds bilaterally, Decreased breath sounds at bases, adequate air entry, no wheezing Cardiac:? Regular rate and rhythm, S1-S2 was normal Abdomen:? Soft, nontender, nondistended, hypoactive bowel sounds, obese Extremities:? bilateral upper and lower extremity edema noted, palpable
--- NOTE | 2023-07-30 17:27 | WPDUROPN2 ---
Progress Note: A&P Assessment and Plan (1) Acute kidney injury: Code(s): N17.9 - Acute kidney failure, unspecified Status: Acute (2) Acute UTI: Code(s): N39.0 - Urinary tract infection, site not specified Status: Acute (3) Septic shock: Code(s): A41.9 - Sepsis, unspecified organism; R65.21 - Severe sepsis with septic shock Status: Acute (4) Left ureteral stone: Code(s): N20.1 - Calculus of ureter Status: Acute Plan CT year old female with sepsis due to Klebsiella infection and obstructing left ureteral stone -status post ureteral stent insertion 07/23/23 -continue IV antibiotics -continue supportive care -plan definitive surgical intervention for stone disease once acute issues and infection have resolved Subjective Subjective Date/Time Seen: 07/30/23 17:27 Interval history: Patient continues ICU stay intubated and sedated. The patient is off vasopressors Objective Data Vital Signs Vital Signs: Vital Signs - 24 hr 07/29/23 17:42 07/29/23 18:00 07/29/23 18:00 Temperature 37.8 C H Pulse Rate 112 H 111 H 105 H Respiratory Rate 23 H Blood Pressure 144/105 H Pulse Oximetry 100 96 Oxygen Delivery Mechanical Ventilation Fraction of Inspired Oxygen 30 07/29/23 20:05 07/29/23 20:06 07/29/23 20:06 Temperature Pulse Rate 102 H 102 H Respiratory Rate 25 H Blood Pressure Pulse Oximetry 99 99 Oxygen Delivery Mechanical Ventilation Fraction of Inspired Oxygen 30 07/29/23 20:17 07/29/23 20:00 07/29/23 20:00 Temperature 37.6 C H Pulse Rate 108 H 105 H Respiratory Rate 23 H Blood Pressure 203/83 H Pulse Oximetry 99 Oxygen Delivery Fraction of Inspired Oxygen 30 07/29/23 20:24 07/29/23 20:56 07/29/23 22:00 Temperature Pulse Rate 85 104 H 84 Respiratory Rate 22 H Blood Pressure Pulse Oximetry Oxygen Delivery Fraction of Inspired Oxygen 07/29/23 22:00 07/29/23 21:00 07/29/23 22:18 Temperature 37.5 C Pulse Rate 84 88 Respiratory Rate 19 23 H Blood Pressure 197/81 H 169/70 H Pulse Oximetry 98 Oxygen Delivery Fraction of Inspired Oxygen 07/29/23 23:04 07/29/23 23:05 07/29/23 23:05 Temperature Pulse Rate 97 102 H 100 Respiratory Rate 24 H 24 H Blood Pressure 180/76 H Pulse Oximetry Oxygen Delivery Fraction of Inspired Oxygen 07/29/23 20:00 07/29/23 20:00 07/30/23 01:00 Temperature Pulse Rate 101 H 90 Respiratory Rate 20 Blood Pressure Pulse Oximetry 99 Oxygen Delivery Mechanical Ventilation Fraction of Inspired Oxygen 30 07/30/23 01:00 07/30/23 00:00 07/30/23 00:00 Temperature Pulse Rate 90 Respiratory Rate 20 Blood Pressure Pulse Oximetry 99 Oxygen Delivery Mechanical Ventilation Fraction of Inspired Oxygen 30 30 07/30/23 00:00 07/30/23 00:00 07/29/23 23:35 Temperature 37.4 C Pulse Rate 93 93 Respiratory Rate 23 H Blood Pressure 136/62 171/83 H Pulse Oximetry 99 Oxygen Delivery Fraction of Inspired Oxygen 07/30/23 01:22 07/30/23 01:27 07/30/23 01:56 Temperature Pulse Rate 87 84 94 Respiratory Rate 20 21 H Blood Pressure Pulse Oximetry 99 Oxygen Delivery Mechanical Ventilation Fraction of Inspired Oxygen 30 07/30/23 01:57 07/30/23 01:58 07/30/23 02:00 Temperature Pulse Rate 95 91 92 Respiratory Rate 20 20 Blood Pressure Pulse Oximetry Oxygen Delivery Fraction of Inspired Oxygen 07/30/23 02:00 07/30/23 04:30 07/30/23 05:26 Temperature 37.3 C 37.0 C Pulse Rate 92 92 87 Respiratory Rate 23 H 22 H 24 H Blood Pressure 139/71 139/63 Pulse Oximetry 99 98 Oxygen Delivery Fraction of Inspired Oxygen 07/30/23 05:05 07/29/23 23:00 07/30/23 05:43 Temperature Pulse Rate 78 99 94 Respiratory Rate 16 Blood Pressure Pulse Oximetry 98 98 Oxygen Delivery Mechanical Ventilation Mechanical Ventilation Fraction of In
[2023-07-30] MEDS: dexmedeTOMIDine 400 MCG/100 ML 400 MCG/100 ML BAG 21.11 MCG IV CONT ×2 (17:30→22:15)
[2023-07-30 17:56] LABS: Glucose Point of Care 151 mg/dl (65-105)
[2023-07-30] MEDS: hydrALAZINE HCL 20 MG/ML VIAL 10 MG IV PUSH (18:34)
[2023-07-31] VITALS (27 sets, daily range): BP systolic 140–179; BP diastolic 68–105; PULSE 61–102; RESP 13–33; TEMP 37.3–37.8; O2SAT 92–100
[2023-07-31 01:41] LABS: Glucose Point of Care 138 mg/dl (65-105)
[2023-07-31] MEDS: IPRATROPIUM BR 0.02% INH SOLN 0.5 MG/2.5 ML VIAL INHALATION ×4 (02:25→20:58)
[2023-07-31] MEDS: LEVALBUTEROL NEB 1.25 MG/3 ML 0.63 MG INHALATION ×4 (02:25→21:00)
[2023-07-31] MEDS: dexmedeTOMIDine 400 MCG/100 ML 400 MCG/100 ML BAG 21.11 MCG IV CONT ×3 (02:43→11:53)
[2023-07-31 06:06] LABS: Base Excess ABG 4.8 mEq/l (+/-2.0); Carboxyhemoglobin 0.2 % THb (0-2.0); Fractional Inspired Oxygen 30 %; HCO3 ABG 28.1 mEq/l (22.0-26.0); Methemoglobin ABG 0.2 %THb (0-1.5); Oxygen Saturation ABG 97.8 % (95.0-100.0); Oxyhemoglobin 95.6 % THb (90.0-100.0); PCO2 ABG 36.5 mmHg (35.0-45.0); PO2 FiO2 Ratio Arterial Blood 3.13 %; Total Hemoglobin 11.1 g/dL (12.0-18.0)
[2023-07-31 06:09] LABS: Arterial Blood Gas PEEP 8 cmH2O; Arterial Blood Gas Vent Mode CMV; Arterial Blood Gas Ventilator rate 16 /MIN; Device VENTILATOR; Modified Allen's Test Pass; Site Drawn LEFT RADIAL; pH ABG 7.504 (7.350-7.450)
[2023-07-31 06:10] LABS: Arterial Blood Gas Tidal Volume 380 ml
[2023-07-31] MEDS: CENTRAL LINE FLUSH 10 ML IV PUSH ×3 (06:43→21:24)
[2023-07-31 06:54] LABS: Basophils Percent Auto 0.3 % (0.2-1.2); Eosinophils Absolute Auto 0.1 K/mm3 (0-0.3); Eosinophils Percent Auto 1.1 % (0-4.4); Hemoglobin 9.2 g/dL (12.0-15.0); Lymphocytes Absolute Auto 0.67 K/mm3 (0.9-3.2); Lymphocytes Percent Auto 6.7 % (18.3-44.2); Mean Corpuscular HGB Conc 30.7 g/dl (32-36); Mean Corpuscular Hemoglobin 28.7 pg (26-34); Mean Corpuscular Volume 93.5 fl (80-100); Monocytes Absolute Auto 0.5 K/mm3 (0.1-0.6); Monocytes Percent Auto 5.2 % (2.6-8.5); Neutrophils Absolute Auto 8.6 K/mm3 (1.3-6.7); Neutrophils Percent Auto 85.7 % (45.5-73.1); Platelet Count Result 182 k/mm3 (150-375); Red Blood Count 3.21 M/mm3 (4.2-5.4); Red Cell Distribution Width 15.7 % (11.5-14.5)
[2023-07-31 07:20] LABS: Alanine Aminotransferase 263 U/L (6-35); Albumin Level 3.1 g/dL (3.5-5.1); Alkaline Phosphatase 268 U/L (38-126); Anion Gap 8 mmol/L (8-16); Aspartate Amino Transferase 54 U/L (14-36); Bilirubin,Total 0.6 mg/dL (0.2-1.3); Blood Urea Nitrogen 40 mg/dL (7-17); Carbon Dioxide 27 mmol/L (22-30); Chloride 113 mmol/L (98-107); Estimated CRCL calculation 57 ml/min; Estimated Glomerular Filt Rate 46; Glucose 143 mg/dL (65-110); Phosphorus 3.6 mg/dL (2.5-4.5); Potassium 3.6 mmol/L (3.4-5.0); Sodium 148 mmol/L (137-145); Triglycerides 188 mg/dL (<150)
--- NOTE | 2023-07-31 07:31 | WPDUROPN2 ---
Progress Note: A&P Assessment and Plan (1) ARF (acute renal failure): Code(s): N17.9 - Acute kidney failure, unspecified Status: Acute (2) Left nephrolithiasis: Code(s): N20.0 - Calculus of kidney Status: Acute Assessment and Plan: Definitive care left UPJ stone (likely with left ESWL) once clinically stable. Subjective Subjective Date/Time Seen: 07/31/23 07:31 Interval history: Awake, no distress - seems to comprehend Review of Systems Review of Systems: ROS unobtainable: Yes unobtainable due to endotracheal tube Exam Const: General: no acute distress Resp: Effort & Inspection: normal respiratory effort GI: Inspection: non-distended GI Palp: No abdominal tenderness and No Guarding due to palpation present (GI) Auscultation: normal bowel sounds Urinary Catheter: Urinary Catheter: patent and draining and urine clear Objective Data Vital Signs Vital Signs: Vital Signs - 24 hr 07/30/23 07:48 07/30/23 07:48 07/30/23 08:10 Temperature Pulse Rate 103 H 103 H 97 Respiratory Rate 20 20 Blood Pressure Pulse Oximetry 97 Oxygen Delivery Mechanical Ventilation Fraction of Inspired Oxygen 30 07/30/23 08:10 07/30/23 08:32 07/30/23 08:46 Temperature Pulse Rate 97 133 H 169 H Respiratory Rate 20 Blood Pressure Pulse Oximetry 97 Oxygen Delivery Mechanical Ventilation Fraction of Inspired Oxygen 30 07/30/23 09:31 07/30/23 08:00 07/30/23 08:00 Temperature Pulse Rate 168 H 105 H Respiratory Rate Blood Pressure Pulse Oximetry 97 Oxygen Delivery Mechanical Ventilation Fraction of Inspired Oxygen 30 07/30/23 08:00 07/30/23 11:04 07/30/23 08:40 Temperature Pulse Rate 85 165 H Respiratory Rate 32 H Blood Pressure Pulse Oximetry 96 Oxygen Delivery Mechanical Ventilation Fraction of Inspired Oxygen 30 30 07/30/23 09:25 07/30/23 09:45 07/30/23 10:30 Temperature Pulse Rate 168 H 168 H 74 Respiratory Rate 25 H 36 H 20 Blood Pressure Pulse Oximetry Oxygen Delivery Fraction of Inspired Oxygen 07/30/23 11:22 07/30/23 08:00 07/30/23 12:00 Temperature 99.0 F 100.1 F H Pulse Rate 87 105 H 92 Respiratory Rate 21 H 16 20 Blood Pressure 181/90 H 109/56 L Pulse Oximetry 92 98 Oxygen Delivery Fraction of Inspired Oxygen 07/30/23 12:00 07/30/23 12:00 07/30/23 12:00 Temperature Pulse Rate 92 92 Respiratory Rate 20 Blood Pressure Pulse Oximetry 98 Oxygen Delivery Mechanical Ventilation Fraction of Inspired Oxygen 30 30 07/30/23 13:29 07/30/23 13:29 07/30/23 10:00 Temperature 100.1 F H Pulse Rate 92 92 164 H Respiratory Rate 24 H 28 H Blood Pressure 121/71 Pulse Oximetry 98 98 Oxygen Delivery Mechanical Ventilation Fraction of Inspired Oxygen 30 07/30/23 11:00 07/30/23 13:49 07/30/23 08:30 Temperature 100.3 F H Pulse Rate 86 100 162 H Respiratory Rate 21 H 24 H 25 H Blood Pressure 104/53 L Pulse Oximetry 96 Oxygen Delivery Fraction of Inspired Oxygen 07/30/23 09:45 07/30/23 10:30 07/30/23 10:45 Temperature Pulse Rate 168 H 74 68 Respiratory Rate 36 H 20 20 Blood Pressure Pulse Oximetry Oxygen Delivery Fraction of Inspired Oxygen 07/30/23 12:45 07/30/23 14:00 07/30/23 14:00 Temperature 100.0 F H Pulse Rate 84 103 H 103 H Respiratory Rate 20 20 Blood Pressure 181/90 H Pulse Oximetry 98 Oxygen Delivery Fraction of Inspired Oxygen 07/30/23 15:51 07/30/23 15:55 07/30/23 15:55 Temperature Pulse Rate 98 80 Respiratory Rate 17 Blood Pressure Pulse Oximetry 97 Oxygen Delivery Mechanical Ventilation Fraction of Inspired Oxygen 30 30 07/30/23 16:00 07/30/23 16:00 07/30/23 16:48 Temperature 100.0 F H Pulse Rate 88 81 107 H Respiratory Rate 18 21 H Blood Pressure 112/58 L Pulse Oximetry 97 Oxygen Delivery Fraction of Inspired Oxygen
[2023-07-31 08:33] LABS: Base Excess ABG 2.6 mEq/l (+/-2.0); Fractional Inspired Oxygen 30 %; HCO3 ABG 25.6 mEq/l (22.0-26.0); Oxygen Content ABG 13.8 %vol (16.0-22.0); Oxygen Saturation ABG 95.8 % (95.0-100.0); Oxyhemoglobin 93.2 % THb (90.0-100.0); PCO2 ABG 33.8 mmHg (35.0-45.0); PO2 ABG 72.2 mmHg (80.0-100.0); PO2 FiO2 Ratio Arterial Blood 2.41 %; Total Hemoglobin 10.5 g/dL (12.0-18.0); pH ABG 7.497 (7.350-7.450)
[2023-07-31 08:36] LABS: Device VENTILATOR; Modified Allen's Test Pass; Site Drawn LEFT RADIAL
[2023-07-31 08:38] LABS: Arterial Blood Gas PEEP 8 cmH2O; Arterial Blood Gas Pressure Support 8 cmH2O; Arterial Blood Gas Vent Mode SPONTANEOUS
--- NOTE | 2023-07-31 08:45 | WPDINTPN ---
Progress Note: A&P Assessment and Plan (1) Encephalopathy: Code(s): G93.40 - Encephalopathy, unspecified Status: Acute Assessment and Plan: Multifactorial toxic metabolic encephalopathy secondary to sepsis, general anesthesia, sedation, uremia, acute on chronic renal failure Initially patient on holding sedation was all 4 extremity but does not follow commands She was getting agitated and goes into AFib RVR This has improved as she is now following commands with all 4 extremities and responding to questions -ammonia levels <9 -07/28/[address]: No significant abnormalities noted Normal tSH Evaluated the patient (2) Acute hypoxic respiratory failure: Code(s): J96.01 - Acute respiratory failure with hypoxia Status: Acute Assessment and Plan: Acute respiratory failure likely related septic shock, status post cystoscopy, pyelogram, left ureteral stent insertion, Byers catheter insertion on 07/23/2023. Patient was intubated for the procedure on 07/23 -currently on CMV mode of ventilation, peep of 8 and 30% FiO2. Decrease tidal volume -chest x-ray and ABGs reviewed -continue bronchodilators -patient has been receiving diuretics -07/29 Overnight self extubated, could not protect her airway so ER physician re intubated the patient without any difficulty. Stated that her trachea was anterior, but no significant difficulty in intubation. Weaning has been limited by patient's mental status and encephalopathy 04/01 PSV SBT done for more than 30 minutes. RSBI, ABGI and Vitals acceptable. Pt awake and following commands. Will extubate and monitor. NPO for now. Bipap PRN (3) Septic shock: Code(s): A41.9 - Sepsis, unspecified organism; R65.21 - Severe sepsis with septic shock Status: Acute Assessment and Plan: RESOLVED Septic shock likely related to UTI, nephrolithiasis, pyelonephritis -patient was hypotensive, received 3 L IV fluids in the ER and the OR -lactic acid acid has normalized -patient off vasopressors -off stress dose steroids -mild improvement in urine output but worsening renal function -07/23/2023: Blood cultures growing Klebsiella pneumonia -07/23/2023 urine culture: No growth -discontinued meropenem on 07/28 -07/30 I will discontinue vancomycin (07/23) and continue ceftriaxone (07/28) (4) Acute kidney injury: Code(s): N17.9 - Acute kidney failure, unspecified Status: Acute Assessment and Plan: Patient with acute kidney injury likely related to left nephrolithiasis and left hydronephrosis, sepsis and shock -adequately fluid-resuscitated -lactic acid normalized -07/27: discontinue bicarb infusion as his CO2 has improved on the BMP -nephrology following -continue to monitor urine output, renal function and electrolytes -patient diuresed do very well with Bumex on 07/26, 07/27, 07/28 -creatinine improving and is down to 1.2 today. Monitor (5) Left nephrolithiasis: Code(s): N20.0 - Calculus of kidney Status: Acute Assessment and Plan: left UPJ stone, Cystoscopy, left retrograde pyelogram, left ureteral stent insertion, Byers catheter insertion on 07/23/2023. -urology following the patient (6) Acute UTI: Code(s): N39.0 - Urinary tract infection, site not specified Status: Acute Assessment and Plan: UA reflective of UTI likely related to left nephrolithiasis and hydronephrosis -continue antibiotics as above, cultures as above (7) Iron deficiency anemia secondary to blood loss (chronic): Code(s): D50.0 - Iron deficiency anemia secondary to blood loss (chronic) Status: Acute Assessment and Plan: Patient with a history of iron deficiency anemia on iron pills at home -continue to monitor hemoglobin 07/25: Hemoglobin 7.1 this morning, transfuse 1 unit of packed RBCs -appreciate GI evaluation and recommendations -hemoglobin is stable (8) Atrial fibrillation: Code(s): I48.91 - Unspecified atria
[2023-07-31] MEDS: POTASSIUM CHLORIDE INJ 40 MEQ in DEXTROSE 5% IN WATER 500 ML 130 MEQ IVPB (09:04)
[2023-07-31] MEDS: PANTOPRAZOLE SODIUM IV 40 MG VIAL IV PUSH ×2 (09:04→21:24)
[2023-07-31] MEDS: ASPIRIN 325 MG TABLET FEED TUBE (09:05)
[2023-07-31] MEDS: ENOXAPARIN 40 MG/0.4 ML SYRINGE SUB-Q (09:05)
[2023-07-31] MEDS: MINERAL OIL/WHITE PETROLATUM OINTMENT 1 APPLIC EACH EYE ×2 (09:05→19:27)
[2023-07-31] MEDS: METOPROLOL TARTRATE 25 MG TABLET PO ×2 (09:05→20:01)
[2023-07-31] MEDS: TOLNAFTATE 1% POWDER 45 GM BTL 1 APPLIC TOPICAL ×2 (09:15→19:27)
[2023-07-31 11:16] LABS: Glucose Point of Care 132 mg/dl (65-105)
--- NOTE | 2023-07-31 11:18 | PCFNICU ---
ICU Rounding Note: Pt current nutrition is NPO. Nutrition recommendation: clear liquids advance diet as tolerated per MD orders. Last recorded weight is 111.1 kg, down from 116.4 kg on admit. Bowel Motility: +BM reported 07/29 Labs Reviewed:Glu 115, Cr 1.5, BUN 58, GFR 35, Na 146, Alb 2.9 Meds Noted: Precedex, Lopressor, Atrovent, Protonix Skin: WNL Additional Notes: Patient has been extubated. Tube feedings discontinued. Discussed in ICU rounds advancing diet as tolerated per MD orders. Plans for clear liquids at lunch. Agree with diet orders. Following daily in ICU rounds. Will monitor, weight,labs, skin, diet order every 5 days.
[2023-07-31] MEDS: cefTRIAXone 2 GM/NS 100 ML 2 GM/100 ML BAG IVPB (12:05)
--- NOTE | 2023-07-31 12:33 | PM.PNNEP ---
Progress Note: A&P Assessment and Plan (1) Acute kidney injury: Code(s): N17.9 - Acute kidney failure, unspecified Status: Acute Assessment and Plan: ongoing improvement noted presumably secondary to left nephrolithiasis with associated hydronephrosis along with septic shock normal renal function at baseline (from labs ~ 2 years ago) PRN IV diuretics given edema issues follow repeat labs and UOP (2) Septic shock: Code(s): A41.9 - Sepsis, unspecified organism; R65.21 - Severe sepsis with septic shock Status: Acute Assessment and Plan: resolving as noted on admission with leukocytosis, hypotension, lactic acidosis and KIM/ARF secondary to UTI, nephrolithiasis, and possible pyelonephritis s/p IVF resuscitation vasopressor support to maintain MAP/BP - currently off follow culture data - results noted on antibiotics follow hemodynamics (3) Acute hypoxic respiratory failure: Code(s): J96.01 - Acute respiratory failure with hypoxia Status: Acute Assessment and Plan: resolved - extubated due septic shock and recent operative intervention follow respiratory status (4) Acute non-ST elevation myocardial infarction (NSTEMI): Code(s): I21.4 - Non-ST elevation (NSTEMI) myocardial infarction Status: Acute Assessment and Plan: elevated troponins noted presumably precipitated by septic shock and demand ischemia from underlying acute medical issues Cardiology recommendations noted (5) Left nephrolithiasis: Code(s): N20.0 - Calculus of kidney Status: Acute Assessment and Plan: Urology following s/p cystoscopy, left retrograde pyelogram, left ureteral stent insertion and Byers catheter plaement (on 07/23) (6) Iron deficiency anemia secondary to blood loss (chronic): Code(s): D50.0 - Iron deficiency anemia secondary to blood loss (chronic) Status: Acute Assessment and Plan: known history suspect hemoglobin may fluctuate further give acute medical issues follow trend of H/H Will continue to follow. Subjective Date/time seen: 07/31/23 12:33 Interval history: Follow-up for acute kidney injury/acute renal failure Successfully extubated earlier this AM and respiratory status seems relatively stable; renal function continues to improve with good urine output; stale hemodynamis noted; no other aute issues/concerns at this time. Exam Narrative: General: large but WD/WN female in NAD Heart: normal S1 and S2; no rub Lungs: clear anteriorly, decrease at bases Abdomen: soft, nontender, nondistended, positive bowel sounds Extremities: no cyanosis or clubbing; trace edema Skin: no rash Objective Data Vital Signs Vital Signs: Vital Signs Temp Pulse Resp BP Pulse Ox O2 Del Method O2 Flow Rate 07/31/23 12:00 99.5 F 89 16 172/76 H 97 07/31/23 12:00 89 07/31/23 09:15 84 30 H 07/31/23 10:00 84 30 H 150/80 H 98 07/31/23 10:00 83 07/31/23 08:00 99 Nasal Cannula 2 07/31/23 08:00 99.2 F 102 H 22 H 163/78 H 100 07/31/23 09:34 80 20 07/31/23 08:00 102 H 07/31/23 09:25 78 20 07/31/23 08:45 81 24 H 95 Nasal Cannula 2 07/31/23 08:15 61 92 Mechanical Ventilation 07/31/23 06:00 99.2 F 76 19 147/68 H 98 07/31/23 04:00 99.2 F 86 20 149/77 H 100 07/31/23 02:00 100.1 F H 101 H 20 149/86 H 98 07/31/23 06:00 75 07/31/23 04:00 95 07/31/23 00:00 102 H 07/30/23 20:00 111 H 07/31/23 05:54 74 95 Mechanical Ventilation 07/31/23 04:00 07/31/23 04:00 Mechanical Ventilation 07/31/23 02:38 85 22 H 07/31/23 02:28 76 97 Mechanical Ventilation 07/31/23 02:25 86 22 H 07/31/23 00:00 07/31/23 00:00 99.6 F 88 23 H 140/92 H 99 07/30/23 22:00 99.6 F 101 H 24 H 145/81 H 99 07/30/23 2
--- NOTE | 2023-07-31 12:33 | P.PNNP_ITS ---
Progress Note: A&P Assessment and Plan (1) Acute kidney injury: Code(s): N17.9 - Acute kidney failure, unspecified Status: Acute Assessment and Plan: * ongoing improvement noted * presumably secondary to left nephrolithiasis with associated hydronephrosis along with septic shock * normal renal function at baseline (from labs ~ 2 years ago) * PRN IV diuretics given edema issues * follow repeat labs and UOP (2) Septic shock: Code(s): A41.9 - Sepsis, unspecified organism; R65.21 - Severe sepsis with septic shock Status: Acute Assessment and Plan: * resolving * as noted on admission with leukocytosis, hypotension, lactic acidosis and KIM/ARF * secondary to UTI, nephrolithiasis, and possible pyelonephritis * s/p IVF resuscitation * vasopressor support to maintain MAP/BP - currently off * follow culture data - results noted * on antibiotics * follow hemodynamics (3) Acute hypoxic respiratory failure: Code(s): J96.01 - Acute respiratory failure with hypoxia Status: Acute Assessment and Plan: * resolved - extubated * due septic shock and recent operative intervention * follow respiratory status (4) Acute non-ST elevation myocardial infarction (NSTEMI): Code(s): I21.4 - Non-ST elevation (NSTEMI) myocardial infarction Status: Acute Assessment and Plan: * elevated troponins noted * presumably precipitated by septic shock and demand ischemia from underlying acute medical issues * Cardiology recommendations noted (5) Left nephrolithiasis: Code(s): N20.0 - Calculus of kidney Status: Acute Assessment and Plan: * Urology following * s/p cystoscopy, left retrograde pyelogram, left ureteral stent insertion and Byers catheter plaement (on 07/23) (6) Iron deficiency anemia secondary to blood loss (chronic): Code(s): D50.0 - Iron deficiency anemia secondary to blood loss (chronic) Status: Acute Assessment and Plan: * known history * suspect hemoglobin may fluctuate further give acute medical issues * follow trend of H/H Will continue to follow. Subjective Date/time seen: 07/31/23 12:33 Interval history: Follow-up for acute kidney injury/acute renal failure Successfully extubated earlier this AM and respiratory status seems relatively stable; renal function continues to improve with good urine output; stale hemodynamis noted; no other aute issues/concerns at this time. Exam Narrative: General: large but WD/WN female in NAD Heart: normal S1 and S2; no rub Lungs: clear anteriorly, decrease at bases Abdomen: soft, nontender, nondistended, positive bowel sounds Extremities: no cyanosis or clubbing; trace edema Skin: no rash Objective Data Vital Signs Vital Signs: Vital Signs Temp Pulse Resp BP Pulse Ox O2 Del Method O2 Flow Rate 07/31/23 12:00 99.5 F 89 16 172/76 H 97 07/31/23 12:00 89 07/31/23 09:15 84 30 H 07/31/23 10:00 84 30 H 150/80 H 98 07/31/23 10:00 83 07/31/23 08:00 99 Nasal Cannula 2 07/31/23 08:00 99.2 F 102 H 22 H 163/78 H 100 07/31/23 09:34 80 20 07/31/23 08:00 102 H 07/31/23 09:25 78 20 07/31/23 08:45 81 24 H 95 Nasal Cannula 2 07/31/23 08:15 61 92 Mechanical Vent
[2023-07-31 17:19] LABS: Glucose Point of Care 102 mg/dl (65-105)
[2023-07-31] MEDS: ALPRAZolam (*CRX) 0.25 MG TABLET PO (21:24)
[2023-07-31] MEDS: hydrALAZINE HCL 20 MG/ML VIAL 10 MG IV PUSH (22:06)
[2023-08-01] VITALS (19 sets, daily range): BP systolic 134–195; BP diastolic 64–120; PULSE 76–100; RESP 12–27; TEMP 36.6–37.6; O2SAT 94–99
[2023-08-01 00:50] LABS: Glucose Point of Care 90 mg/dl (65-105)
[2023-08-01] MEDS: hydrALAZINE HCL 20 MG/ML VIAL 10 MG IV PUSH (02:00)
[2023-08-01] MEDS: IPRATROPIUM BR 0.02% INH SOLN 0.5 MG/2.5 ML VIAL INHALATION ×3 (02:39→21:10)
[2023-08-01] MEDS: LEVALBUTEROL NEB 1.25 MG/3 ML 0.63 MG INHALATION ×3 (02:44→21:10)
[2023-08-01] MEDS: METOPROLOL TARTRATE 25 MG TABLET PO (04:35)
[2023-08-01] MEDS: FUROSEMIDE INJ 40 MG/4 ML VIAL IV PUSH (04:35)
[2023-08-01 05:26] LABS: Alveolar/Arterial O2 Gradient 93.6 mmHg; Base Excess ABG 2.7 mEq/l (+/-2.0); Carboxyhemoglobin 0.3 % THb (0-2.0); Fractional Inspired Oxygen 21 %; HCO3 ABG 24.7 mEq/l (22.0-26.0); Methemoglobin ABG 0.1 %THb (0-1.5); Oxygen Content ABG 18.7 %vol (16.0-22.0); Oxygen Saturation ABG 96.1 % (95.0-100.0); Oxyhemoglobin 94.1 % THb (90.0-100.0); PCO2 ABG 30.4 mmHg (35.0-45.0); PO2 ABG 72.3 mmHg (80.0-100.0); PO2 FiO2 Ratio Arterial Blood 3.44 %; Reduced Hemoglobin 5.5 %THb (0-5.0); Total Hemoglobin 14.1 g/dL (12.0-18.0)
[2023-08-01 05:28] LABS: Modified Allen's Test Pass; Site Drawn LEFT RADIAL; pH ABG 7.527 (7.350-7.450)
[2023-08-01] MEDS: LABETALOL HCL INJ 100 MG/20 ML VIAL 20 MG IV PUSH (06:11)
[2023-08-01 06:14] LABS: Basophils Absolute Auto 0.1 K/mm3 (0.0-0.1); Basophils Percent Auto 0.5 % (0.2-1.2); Eosinophils Absolute Auto 0.2 K/mm3 (0-0.3); Eosinophils Percent Auto 1.5 % (0-4.4); Hematocrit 35.6 % (37.0-47.0); Immature Granulocyte Absolute 0.09 K/mm3 (0.00-0.031); Immature Granulocyte Percent A 0.7 % (0-0.5); Lymphocytes Absolute Auto 0.97 K/mm3 (0.9-3.2); Mean Corpuscular HGB Conc 30.9 g/dl (32-36); Mean Corpuscular Hemoglobin 28.9 pg (26-34); Mean Corpuscular Volume 93.7 fl (80-100); Mean Platelet Volume 11.2 fl (7.4-10.4); Monocytes Absolute Auto 0.8 K/mm3 (0.1-0.6); Monocytes Percent Auto 5.9 % (2.6-8.5); Neutrophils Absolute Auto 11.6 K/mm3 (1.3-6.7); Neutrophils Percent Auto 84.4 % (45.5-73.1); Platelet Count Result 264 k/mm3 (150-375); Red Cell Distribution Width 15.4 % (11.5-14.5); White Blood Count 13.8 K/mm3 (4.5-10.0)
[2023-08-01] MEDS: CENTRAL LINE FLUSH 10 ML IV PUSH ×3 (06:14→21:03)
[2023-08-01 06:27] LABS: Alanine Aminotransferase 235 U/L (6-35); Albumin Level 3.9 g/dL (3.5-5.1); Alkaline Phosphatase 283 U/L (38-126); Anion Gap 12 mmol/L (8-16); Aspartate Amino Transferase 63 U/L (14-36); Bilirubin,Total 0.9 mg/dL (0.2-1.3); Blood Urea Nitrogen 30 mg/dL (7-17); Calcium 9.5 mg/dL (8.4-10.2); Carbon Dioxide 22 mmol/L (22-30); Chloride 113 mmol/L (98-107); Estimated CRCL calculation 56 ml/min; Estimated Glomerular Filt Rate 46; Glucose 97 mg/dL (65-110); Magnesium 1.9 mg/dL (1.6-2.3); Phosphorus 3.1 mg/dL (2.5-4.5); Potassium 3.5 mmol/L (3.4-5.0); Sodium 147 mmol/L (137-145)
[2023-08-01] MEDS: amLODIPine BESYLATE 5 MG TABLET 10 MG PO (08:46)
[2023-08-01] MEDS: POTASSIUM BICARBONATE 25 MEQ TABEF 50 MEQ PO (08:47)
[2023-08-01] MEDS: ENOXAPARIN 40 MG/0.4 ML SYRINGE SUB-Q (08:47)
[2023-08-01] MEDS: METOPROLOL TARTRATE 50 MG TAB PO ×2 (08:47→21:02)
[2023-08-01] MEDS: ASPIRIN 325 MG TABLET FEED TUBE (08:47)
[2023-08-01] MEDS: MINERAL OIL/WHITE PETROLATUM OINTMENT 1 APPLIC EACH EYE (08:48)
[2023-08-01] MEDS: PANTOPRAZOLE SODIUM IV 40 MG VIAL IV PUSH ×2 (08:48→21:02)
[2023-08-01] MEDS: TOLNAFTATE 1% POWDER 45 GM BTL 1 APPLIC TOPICAL ×2 (08:54→21:02)
--- NOTE | 2023-08-01 09:31 | PM.PNNEP ---
Progress Note: A&P Assessment and Plan (1) Acute kidney injury: Code(s): N17.9 - Acute kidney failure, unspecified Status: Acute Assessment and Plan: ongoing improvement noted -- possible new baseline creatinine (?) presumably secondary to left nephrolithiasis with associated hydronephrosis along with septic shock normal renal function at baseline (from labs ~ 2 years ago) PRN IV diuretics given edema issues follow repeat labs and UOP (2) Septic shock: Code(s): A41.9 - Sepsis, unspecified organism; R65.21 - Severe sepsis with septic shock Status: Acute Assessment and Plan: resolved as noted on admission with leukocytosis, hypotension, lactic acidosis and KIM/ARF secondary to UTI, nephrolithiasis, and possible pyelonephritis s/p IVF resuscitation vasopressor support to maintain MAP/BP - currently off follow culture data - results noted on antibiotics follow hemodynamics (3) Acute hypoxic respiratory failure: Code(s): J96.01 - Acute respiratory failure with hypoxia Status: Acute Assessment and Plan: resolved - extubated due septic shock and recent operative intervention follow respiratory status (4) Acute non-ST elevation myocardial infarction (NSTEMI): Code(s): I21.4 - Non-ST elevation (NSTEMI) myocardial infarction Status: Acute Assessment and Plan: elevated troponins noted presumably precipitated by septic shock and demand ischemia from underlying acute medical issues Cardiology recommendations noted (5) Left nephrolithiasis: Code(s): N20.0 - Calculus of kidney Status: Acute Assessment and Plan: Urology following s/p cystoscopy, left retrograde pyelogram, left ureteral stent insertion and Byers catheter plaement (on 07/23) (6) Iron deficiency anemia secondary to blood loss (chronic): Code(s): D50.0 - Iron deficiency anemia secondary to blood loss (chronic) Status: Acute Assessment and Plan: known history suspect hemoglobin may fluctuate further give acute medical issues follow trend of H/H Not much else to add -- will continue to follow intermittently. Subjective Date/time seen: 08/01/23 09:31 Interval history: Follow-up for acute kidney injury/acute renal failure Respiratory status remains stable and has been weaned down to room air; reported confusion/agitation overnight with associatiod hallucinations but mentation seems stable at the time of my visit; no other acute complaints voiced; renal function remains stable. Review of Systems Review of Systems: extubated yesterday after successful weaning trial; Exam Narrative: General: large but WD/WN female in NAD Heart: normal S1 and S2; no rub Lungs: clear anteriorly, decrease at bases Abdomen: soft, nontender, nondistended, positive bowel sounds Extremities: no cyanosis or clubbing; trace edema Skin: no nodules Objective Data Vital Signs Vital Signs: Vital Signs Temp Pulse Resp BP Pulse Ox O2 Del Method FiO2 08/01/23 08:00 89 23 H 95 Room Air 08/01/23 08:00 89 08/01/23 08:00 99.5 F 88 23 H 168/92 H 95 08/01/23 07:59 88 22 H 08/01/23 07:39 82 22 H 08/01/23 07:39 96 Room Air 21 08/01/23 06:00 99.6 F 77 24 H 172/80 H 95 08/01/23 06:00 77 08/01/23 06:11 86 08/01/23 04:35 98 08/01/23 04:00 99.4 F 100 26 H 195/120 H 94 08/01/23 04:00 97 24 H 95 Room Air 30 08/01/23 04:00 100 08/01/23 02:00 99.5 F 85 27 H 194/100 H 95 08/01/23 02:00 85 08/01/23 00:00 99.5 F 93 25 H 178/94 H 96 08/01/23 00:00 97 08/01/23 02:52 97 24 H 08/01/23 02:44 99 24 H 08/01/23 00:00 77 13 98 Room Air 30 07/31/23 22:00 100 F H 77 13 170/82 H 98 07/31/23 22:00 90 07/31/23 20:00 99 07/31/23 20:00 99.8 F H 99 23 H 143/105
--- NOTE | 2023-08-01 09:31 | P.PNNP_ITS ---
Progress Note: A&P Assessment and Plan (1) Acute kidney injury: Code(s): N17.9 - Acute kidney failure, unspecified Status: Acute Assessment and Plan: * ongoing improvement noted -- possible new baseline creatinine (?) * presumably secondary to left nephrolithiasis with associated hydronephrosis along with septic shock * normal renal function at baseline (from labs ~ 2 years ago) * PRN IV diuretics given edema issues * follow repeat labs and UOP (2) Septic shock: Code(s): A41.9 - Sepsis, unspecified organism; R65.21 - Severe sepsis with septic shock Status: Acute Assessment and Plan: * resolved * as noted on admission with leukocytosis, hypotension, lactic acidosis and KIM/ARF * secondary to UTI, nephrolithiasis, and possible pyelonephritis * s/p IVF resuscitation * vasopressor support to maintain MAP/BP - currently off * follow culture data - results noted * on antibiotics * follow hemodynamics (3) Acute hypoxic respiratory failure: Code(s): J96.01 - Acute respiratory failure with hypoxia Status: Acute Assessment and Plan: * resolved - extubated * due septic shock and recent operative intervention * follow respiratory status (4) Acute non-ST elevation myocardial infarction (NSTEMI): Code(s): I21.4 - Non-ST elevation (NSTEMI) myocardial infarction Status: Acute Assessment and Plan: * elevated troponins noted * presumably precipitated by septic shock and demand ischemia from underlying acute medical issues * Cardiology recommendations noted (5) Left nephrolithiasis: Code(s): N20.0 - Calculus of kidney Status: Acute Assessment and Plan: * Urology following * s/p cystoscopy, left retrograde pyelogram, left ureteral stent insertion and Byers catheter plaement (on 07/23) (6) Iron deficiency anemia secondary to blood loss (chronic): Code(s): D50.0 - Iron deficiency anemia secondary to blood loss (chronic) Status: Acute Assessment and Plan: * known history * suspect hemoglobin may fluctuate further give acute medical issues * follow trend of H/H Not much else to add -- will continue to follow intermittently. Subjective Date/time seen: 08/01/23 09:31 Interval history: Follow-up for acute kidney injury/acute renal failure Respiratory status remains stable and has been weaned down to room air; reported confusion/agitation overnight with associatiod hallucinations but mentation seems stable at the time of my visit; no other acute complaints voiced; renal function remains stable. Review of Systems Review of Systems: extubated yesterday after successful weaning trial; Exam Narrative: General: large but WD/WN female in NAD Heart: normal S1 and S2; no rub Lungs: clear anteriorly, decrease at bases Abdomen: soft, nontender, nondistended, positive bowel sounds Extremities: no cyanosis or clubbing; trace edema Skin: no nodules Objective Data Vital Signs Vital Signs: Vital Signs Temp Pulse Resp BP Pulse Ox O2 Del Method FiO2 08/01/23 08:00 89 23 H 95 Room Air 08/01/23 08:00 89 08/01/23 08:00 99.5 F 88 23 H 168/92 H 95 08/01/23 07:59 88 22 H 08/01/23 07:39 82 22 H 08/01/23 07:39 96 Room Air 21 08/01/23 06:00 99.6 F 77 2
--- NOTE | 2023-08-01 09:58 | WPDINTPN ---
Progress Note: A&P Assessment and Plan (1) Encephalopathy: Code(s): G93.40 - Encephalopathy, unspecified Status: Acute Assessment and Plan: Multifactorial toxic metabolic encephalopathy secondary to sepsis, general anesthesia, sedation, uremia, acute on chronic renal failure Initially patient on holding sedation was all 4 extremity but does not follow commands She was getting agitated and goes into AFib RVR This has improved as she is now following commands with all 4 extremities and responding to questions -ammonia levels <9 -07/28/[address]: No significant abnormalities noted Normal tSH Improved and patient now AO x3 (2) Acute hypoxic respiratory failure: Code(s): J96.01 - Acute respiratory failure with hypoxia Status: Acute Assessment and Plan: Acute respiratory failure likely related septic shock, status post cystoscopy, pyelogram, left ureteral stent insertion, Byers catheter insertion on 07/23/2023. Patient was intubated for the procedure on 07/23 -currently on CMV mode of ventilation, peep of 8 and 30% FiO2. Decrease tidal volume -chest x-ray and ABGs reviewed -continue bronchodilators -patient has been receiving diuretics -07/29 Overnight self extubated, could not protect her airway so ER physician re intubated the patient without any difficulty. Stated that her trachea was anterior, but no significant difficulty in intubation. Weaning has been limited by patient's mental status and encephalopathy 04/01 PSV SBT done for more than 30 minutes. RSBI, ABGI and Vitals acceptable. Pt awake and following commands. Will extubate and monitor. NPO for now. Bipap PRN 08/01 extubated yesterday after a successful weaning trial. Now on room air. Incentive spirometry and up in chair (3) Septic shock: Code(s): A41.9 - Sepsis, unspecified organism; R65.21 - Severe sepsis with septic shock Status: Acute Assessment and Plan: RESOLVED Septic shock likely related to UTI, nephrolithiasis, pyelonephritis -patient was hypotensive, received 3 L IV fluids in the ER and the OR -lactic acid acid has normalized -patient off vasopressors -off stress dose steroids -mild improvement in urine output but worsening renal function -07/23/2023: Blood cultures growing Klebsiella pneumonia -07/23/2023 urine culture: No growth -discontinued meropenem on 07/28 -07/30 I will discontinue vancomycin (07/23) and continue ceftriaxone (07/28) (4) Acute kidney injury: Code(s): N17.9 - Acute kidney failure, unspecified Status: Acute Assessment and Plan: Patient with acute kidney injury likely related to left nephrolithiasis and left hydronephrosis, sepsis and shock -adequately fluid-resuscitated -lactic acid normalized -07/27: discontinue bicarb infusion as his CO2 has improved on the BMP -nephrology following -continue to monitor urine output, renal function and electrolytes -patient diuresed do very well with Bumex on 07/26, 07/27, 07/28 -creatinine improving and is down to 1.2 today. Monitor (5) Left nephrolithiasis: Code(s): N20.0 - Calculus of kidney Status: Acute Assessment and Plan: left UPJ stone, Cystoscopy, left retrograde pyelogram, left ureteral stent insertion, Byers catheter insertion on 07/23/2023. -urology following the patient (6) Acute UTI: Code(s): N39.0 - Urinary tract infection, site not specified Status: Acute Assessment and Plan: UA reflective of UTI likely related to left nephrolithiasis and hydronephrosis -continue antibiotics as above, cultures as above (7) Iron deficiency anemia secondary to blood loss (chronic): Code(s): D50.0 - Iron deficiency anemia secondary to blood loss (chronic) Status: Acute Assessment and Plan: Patient with a history of iron deficiency anemia on iron pills at home -continue to monitor hemoglobin 07/25: Hemoglobin 7.1 this morning, transfuse 1 unit of packed RBCs -appreciate
--- NOTE | 2023-08-01 10:36 | PCPTNOTE ---
Attempted PT evaluation, pt is getting ready to transfer to another unit. Will follow.
--- NOTE | 2023-08-01 10:51 | PC.NURSE ---
This patient, Olesya Pappas, was transferred to [facility] on 08/01/23 at 1035. Personal belongings sent with patient. Report given to Jacinda ARANGO. Appropriate documentation sent with patient.
[2023-08-01] MEDS: cefTRIAXone 2 GM/NS 100 ML 2 GM/100 ML BAG IVPB (11:37)
--- NOTE | 2023-08-01 11:44 | PCNFU ---
Nutrition Follow-Up Complete: Inadequate Oral Intake as related to mechanical ventilation as evidenced by NPO. goal: Meet estimated nutritional needs patient is progressing towards goal. We will continue current goal. Pt current nutrition is Heart Healthy. Last recorded weight is 109 kg, down from 116.4 kg on admit. Bowel Motility:Last reported BM 08/01 Labs Reviewed:Cr 1.2,BUN 30, GFR 46, NA 147 Meds Noted:Lopressor, Protonix, Rocephin Skin:WNL Additional Notes: Patient tolerated full liquid diet, advancing to a heart healthy diet for lunch. Agree with diet orders. Will monitor, weight,labs, skin, po intake every 5 days.
[2023-08-01 12:11] LABS: Glucose Point of Care 105 mg/dl (65-105)
--- NOTE | 2023-08-01 13:38 | PM.IMPN ---
Progress Note: A&P Assessment and Plan (1) Encephalopathy: Code(s): G93.40 - Encephalopathy, unspecified Status: Acute Assessment and Plan: Multifactorial toxic metabolic encephalopathy secondary to sepsis, general anesthesia, sedation, uremia, acute on chronic renal failure Resolved (2) Acute hypoxic respiratory failure: Code(s): J96.01 - Acute respiratory failure with hypoxia Status: Acute Assessment and Plan: Acute respiratory failure likely related septic shock, status post cystoscopy, pyelogram, left ureteral stent insertion, Byers catheter insertion on 07/23/2023. Patient was intubated for the procedure on 07/23 Self extubated on 07/29, could not protect her airway so was reintubated. Is extubated, currently on room air (3) Septic shock: Code(s): A41.9 - Sepsis, unspecified organism; R65.21 - Severe sepsis with septic shock Status: Acute Assessment and Plan: Shock has resolved Septic shock likely related to UTI, kidney stones, pyelonephritis She is off vasopressors, often stress dose steroids Blood culture from 07/23/2023 growing Klebsiella Vancomycin has been discontinued, continue with ceftriaxone (4) Acute kidney injury: Code(s): N17.9 - Acute kidney failure, unspecified Status: Acute Assessment and Plan: Kidney function continues to improve Avoid nephrotoxins Recheck BMP in a.m. (5) Left nephrolithiasis: Code(s): N20.0 - Calculus of kidney Status: Acute Assessment and Plan: left UPJ stone, Cystoscopy, left retrograde pyelogram, left ureteral stent insertion, Byers catheter insertion on 07/23/2023 Definitive care left UPJ stone (likely with left ESWL) once clinically stable.. Management as per Urology (6) Acute UTI: Code(s): N39.0 - Urinary tract infection, site not specified Status: Acute (7) Iron deficiency anemia secondary to blood loss (chronic): Code(s): D50.0 - Iron deficiency anemia secondary to blood loss (chronic) Status: Acute Assessment and Plan: Status post 1 unit of PRBC on 07/25/23 Appreciate GI help (8) Atrial fibrillation: Code(s): I48.91 - Unspecified atrial fibrillation Status: Acute Assessment and Plan: Intermittent AFib when off sedation Cardiology has been following Currently in sinus rhythm Continue with metoprolol, aspirin Patient has not been started on anticoagulation due to anemia, required blood transfusion (9) Elevated LFTs: Code(s): R79.89 - Other specified abnormal findings of blood chemistry Status: Acute Assessment and Plan: Secondary to shock liver Hepatitis panel was negative Right upper quadrant ultrasound showed chronic cholecystitis Trend LFTs, slowly improving (10) Acute non-ST elevation myocardial infarction (NSTEMI): Code(s): I21.4 - Non-ST elevation (NSTEMI) myocardial infarction Status: Acute Assessment and Plan: NSTEMI with elevated troponins in setting of septic shock -patient was started on heparin drip but had to be stopped due to thrombocytopenia anemia requiring transfusion -appreciate cardiology consult Time Spent With Patient Time with patient: 15 - 25 minutes Subjective Date/time seen: 08/01/23 13:38 Interval history: Has been extubated, on room air Review of Systems Review of Systems: All systems reviewed & are unremarkable except as noted in HPI and below (Subjective) Exam Narrative: General: Obese female, alert awake in no distress HEENT:? Pupils equal and reactive, sclera is clear Neck:? Supple Respiratory:? Coarse breath sounds bilaterally, Decreased breath sounds at bases, adequate air entry, no wheezing Cardiac:? Regular rate and rhythm, S1-S2 was normal Abdomen:? Soft, nontender, nondistended, hypoactive bowel sounds, obese Extremities:? bilateral upper and lower extremity minimal edema noted, palpable pedal pulses Neuro:? AO x
--- NOTE | 2023-08-01 13:47 | PC.NURSE ---
This patient, Olesya Pappas, was received from [ icu] on 08/01/23 at 1050. Patient/family oriented to unit policies and routines
[2023-08-01 17:14] LABS: Glucose Point of Care 84 mg/dl (65-105)
[2023-08-01 20:43] LABS: Glucose Point of Care 133 mg/dl (65-105)
[2023-08-02] VITALS (17 sets, daily range): BP systolic 124–163; BP diastolic 48–90; PULSE 78–127; RESP 14–20; TEMP 36.3–36.9; O2SAT 95–99
[2023-08-02] MEDS: IPRATROPIUM BR 0.02% INH SOLN 0.5 MG/2.5 ML VIAL INHALATION ×3 (02:27→20:30)
[2023-08-02] MEDS: LEVALBUTEROL NEB 1.25 MG/3 ML 0.63 MG INHALATION ×3 (02:28→20:30)
--- NOTE | 2023-08-02 03:51 | PC.NURSE ---
Pt called me into room. Pt was having some delusions and paranoia about her 's ex- trying to shut down the hospital. Stated that the ex- had sent paperwork and she was out to get money. Wanted to find a fast car to go over to their house and stop them and have them arrested. Patient eventually called the and he was trying to calm her down. Pt then wanted me to look in her paperwork to see if the ex- had sent any paperwork.
[2023-08-02] MEDS: CENTRAL LINE FLUSH 10 ML IV PUSH ×3 (05:18→20:41)
[2023-08-02 05:37] LABS: Basophils Absolute Auto 0.1 K/mm3 (0.0-0.1); Basophils Percent Auto 0.7 % (0.2-1.2); Eosinophils Absolute Auto 0.3 K/mm3 (0-0.3); Eosinophils Percent Auto 3.2 % (0-4.4); Hematocrit 33.8 % (37.0-47.0); Hemoglobin 10.3 g/dL (12.0-15.0); Immature Granulocyte Absolute 0.05 K/mm3 (0.00-0.031); Immature Granulocyte Percent A 0.6 % (0-0.5); Lymphocytes Absolute Auto 1.02 K/mm3 (0.9-3.2); Lymphocytes Percent Auto 11.4 % (18.3-44.2); Mean Corpuscular HGB Conc 30.5 g/dl (32-36); Mean Corpuscular Hemoglobin 28.2 pg (26-34); Mean Corpuscular Volume 92.6 fl (80-100); Mean Platelet Volume 11.3 fl (7.4-10.4); Monocytes Absolute Auto 0.7 K/mm3 (0.1-0.6); Monocytes Percent Auto 8.1 % (2.6-8.5); Neutrophils Absolute Auto 6.8 K/mm3 (1.3-6.7); Platelet Count Result 277 k/mm3 (150-375); Red Blood Count 3.65 M/mm3 (4.2-5.4); Red Cell Distribution Width 15.2 % (11.5-14.5)
[2023-08-02 06:03] LABS: Alanine Aminotransferase 175 U/L (6-35); Albumin Level 3.7 g/dL (3.5-5.1); Alkaline Phosphatase 222 U/L (38-126); Anion Gap 12 mmol/L (8-16); Aspartate Amino Transferase 54 U/L (14-36); Bilirubin,Total 0.8 mg/dL (0.2-1.3); Blood Urea Nitrogen 34 mg/dL (7-17); Calcium 9.1 mg/dL (8.4-10.2); Carbon Dioxide 22 mmol/L (22-30); Chloride 111 mmol/L (98-107); Estimated CRCL calculation 54 ml/min; Estimated Glomerular Filt Rate 46; Glucose 106 mg/dL (65-110); Phosphorus 3.7 mg/dL (2.5-4.5); Potassium 3.4 mmol/L (3.4-5.0); Sodium 145 mmol/L (137-145); Triglycerides 210 mg/dL (<150)
[2023-08-02 07:43] LABS: Glucose Point of Care 103 mg/dl (65-105)
[2023-08-02] MEDS: POTASSIUM CHLORIDE 20 MEQ ER TABLET 40 MEQ PO (08:15)
[2023-08-02] MEDS: amLODIPine BESYLATE 5 MG TABLET 10 MG PO (08:15)
[2023-08-02] MEDS: ASPIRIN 325 MG TABLET FEED TUBE (08:15)
[2023-08-02] MEDS: METOPROLOL TARTRATE 50 MG TAB PO ×2 (08:15→20:41)
[2023-08-02] MEDS: ENOXAPARIN 40 MG/0.4 ML SYRINGE SUB-Q (08:15)
[2023-08-02] MEDS: TOLNAFTATE 1% POWDER 45 GM BTL 1 APPLIC TOPICAL ×2 (08:16→20:41)
[2023-08-02] MEDS: PANTOPRAZOLE SODIUM IV 40 MG VIAL IV PUSH ×2 (08:16→20:41)
[2023-08-02] MEDS: MINERAL OIL/WHITE PETROLATUM OINTMENT 1 APPLIC EACH EYE (08:16)
--- NOTE | 2023-08-02 09:48 | PM.IMPN ---
Progress Note: A&P Assessment and Plan (1) Encephalopathy: Code(s): G93.40 - Encephalopathy, unspecified Status: Acute Assessment and Plan: Multifactorial toxic metabolic encephalopathy secondary to sepsis, general anesthesia, sedation, uremia, acute on chronic renal failure Resolved (2) Acute hypoxic respiratory failure: Code(s): J96.01 - Acute respiratory failure with hypoxia Status: Acute Assessment and Plan: Acute respiratory failure likely related septic shock, status post cystoscopy, pyelogram, left ureteral stent insertion, Byers catheter insertion on 07/23/2023. Patient was intubated for the procedure on 07/23 Self extubated on 07/29, could not protect her airway so was reintubated. Is extubated, currently on room air and doing well 08/02 (3) Septic shock: Code(s): A41.9 - Sepsis, unspecified organism; R65.21 - Severe sepsis with septic shock Status: Acute Assessment and Plan: Shock has resolved Septic shock likely related to UTI, kidney stones, pyelonephritis She is off vasopressors, often stress dose steroids Blood culture from 07/23/2023 growing Klebsiella Vancomycin has been discontinued, continue with ceftriaxone (initiated 07/28) and complete 7 days. Anticipated discharge in 1-2 days and d/w patient and spouse at bedside. (4) Acute kidney injury: Code(s): N17.9 - Acute kidney failure, unspecified Status: Acute Assessment and Plan: Kidney function continues to improve Avoid nephrotoxins 08/02/ creatinine 1.2 (5) Left nephrolithiasis: Code(s): N20.0 - Calculus of kidney Status: Acute Assessment and Plan: left UPJ stone, Cystoscopy, left retrograde pyelogram, left ureteral stent insertion, Byers catheter insertion on 07/23/2023 Definitive care left UPJ stone (likely with left ESWL) once clinically stable.. Management as per Urology (6) Acute UTI: Code(s): N39.0 - Urinary tract infection, site not specified Status: Acute Assessment and Plan: No growth on culture (7) Iron deficiency anemia secondary to blood loss (chronic): Code(s): D50.0 - Iron deficiency anemia secondary to blood loss (chronic) Status: Acute Assessment and Plan: Status post 1 unit of PRBC on 07/25/23 Appreciate GI help (8) Atrial fibrillation: Code(s): I48.91 - Unspecified atrial fibrillation Status: Acute Assessment and Plan: PAF Cardiology has been following Currently in sinus rhythm Continue with metoprolol, aspirin Patient has not been started on anticoagulation due to anemia, required blood transfusion (9) Elevated LFTs: Code(s): R79.89 - Other specified abnormal findings of blood chemistry Status: Acute Assessment and Plan: Secondary to shock liver Hepatitis panel was negative Right upper quadrant ultrasound showed chronic cholecystitis Trend LFTs, slowly improving (10) Acute non-ST elevation myocardial infarction (NSTEMI): Code(s): I21.4 - Non-ST elevation (NSTEMI) myocardial infarction Status: Acute Assessment and Plan: NSTEMI with elevated troponins in setting of septic shock -patient was started on heparin drip but had to be stopped due to thrombocytopenia anemia requiring transfusion -appreciate cardiology consult Subjective Date/time seen: 08/02/23 09:48 Interval history: Extubated 07/31 and transferred to medical floor 08/01. Tolerating diet. Walks with walker with gait belt, standby assist. Deneid chest pain, sob, swelling, abd pain, gi/gu issues, bleeding. Review of Systems Review of Systems: All systems reviewed & are unremarkable except as noted in HPI and below (Subjective) Exam Narrative: General: Obese female, alert awake in no distress HEENT:? Pupils equal and reactive, sclera is clear Neck:? Supple Respiratory:? CTA, NL effort Cardiac:? Regular rate and rhythm, S1-S2 was normal Abdomen:? S
[2023-08-02] MEDS: cefTRIAXone 2 GM/NS 100 ML 2 GM/100 ML BAG IVPB (11:23)
[2023-08-02 11:51] LABS: Glucose Point of Care 115 mg/dl (65-105)
[2023-08-02 16:43] LABS: Glucose Point of Care 145 mg/dl (65-105)
[2023-08-02 20:05] LABS: Glucose Point of Care 109 mg/dl (65-105)
--- NOTE | 2023-08-02 21:06 | ECG_ITS ---
Measurements Intervals Union Rate: 131 P: GA: 0 QRS: 3 QRSD: 98 T: 14 QT: 330 QTc: 487 Interpretive Statements ATRIAL FIBRILLATION WITH RAPID VENTRICULAR RESPONSE WITH ABERRANT CONDUCTION OR VENTRICULAR PREMATURE COMPLEXES VOLTAGE CRITERIA FOR LVH Electronically Signed On 08-03-2023 10:28:06 [employer] by Joseph Avila M.D.
[2023-08-02] MEDS: dilTIAZem HCl INJ 25 MG/5 ML VIAL 20 MG IV PUSH (21:43)
[2023-08-03] VITALS (21 sets, daily range): BP systolic 112–142; BP diastolic 41–63; PULSE 67–100; RESP 16–20; TEMP 36.4–36.6; O2SAT 97–100
[2023-08-03] MEDS: LEVALBUTEROL NEB 1.25 MG/3 ML 0.63 MG INHALATION ×4 (03:11→20:06)
[2023-08-03] MEDS: IPRATROPIUM BR 0.02% INH SOLN 0.5 MG/2.5 ML VIAL INHALATION ×4 (03:12→20:06)
[2023-08-03] MEDS: CENTRAL LINE FLUSH 10 ML IV PUSH ×3 (05:32→20:28)
[2023-08-03 05:59] LABS: Basophils Absolute Auto 0.1 K/mm3 (0.0-0.1); Basophils Percent Auto 0.7 % (0.2-1.2); Eosinophils Absolute Auto 0.3 K/mm3 (0-0.3); Eosinophils Percent Auto 3.9 % (0-4.4); Hematocrit 29.3 % (37.0-47.0); Immature Granulocyte Absolute 0.03 K/mm3 (0.00-0.031); Immature Granulocyte Percent A 0.4 % (0-0.5); Lymphocytes Absolute Auto 1.26 K/mm3 (0.9-3.2); Lymphocytes Percent Auto 18.1 % (18.3-44.2); Mean Corpuscular HGB Conc 30.7 g/dl (32-36); Mean Corpuscular Hemoglobin 28.7 pg (26-34); Mean Corpuscular Volume 93.3 fl (80-100); Mean Platelet Volume 11.3 fl (7.4-10.4); Monocytes Absolute Auto 0.7 K/mm3 (0.1-0.6); Monocytes Percent Auto 10.2 % (2.6-8.5); Neutrophils Absolute Auto 4.7 K/mm3 (1.3-6.7); Neutrophils Percent Auto 66.7 % (45.5-73.1); Platelet Count Result 276 k/mm3 (150-375); Red Blood Count 3.14 M/mm3 (4.2-5.4); Red Cell Distribution Width 15.4 % (11.5-14.5)
[2023-08-03 06:08] LABS: Alanine Aminotransferase 122 U/L (6-35); Albumin Level 3.2 g/dL (3.5-5.1); Alkaline Phosphatase 175 U/L (38-126); Anion Gap 7 mmol/L (8-16); Aspartate Amino Transferase 43 U/L (14-36); Bilirubin,Total 0.6 mg/dL (0.2-1.3); Blood Urea Nitrogen 32 mg/dL (7-17); Calcium 8.6 mg/dL (8.4-10.2); Carbon Dioxide 23 mmol/L (22-30); Chloride 114 mmol/L (98-107); Estimated CRCL calculation 55 ml/min; Estimated Glomerular Filt Rate 46; Glucose 99 mg/dL (65-110); Magnesium 1.9 mg/dL (1.6-2.3); Phosphorus 3.9 mg/dL (2.5-4.5); Potassium 3.6 mmol/L (3.4-5.0); Sodium 144 mmol/L (137-145)
[2023-08-03 08:29] LABS: Glucose Point of Care 95 mg/dl (65-105)
[2023-08-03] MEDS: METOPROLOL TARTRATE 50 MG TAB PO ×2 (09:32→20:28)
[2023-08-03] MEDS: MINERAL OIL/WHITE PETROLATUM OINTMENT 1 APPLIC EACH EYE ×2 (09:33→20:27)
[2023-08-03] MEDS: amLODIPine BESYLATE 5 MG TABLET 10 MG PO (09:33)
[2023-08-03] MEDS: ENOXAPARIN 40 MG/0.4 ML SYRINGE SUB-Q (09:33)
[2023-08-03] MEDS: ASPIRIN 325 MG TABLET FEED TUBE (09:33)
[2023-08-03] MEDS: PANTOPRAZOLE SODIUM IV 40 MG VIAL IV PUSH ×2 (09:33→20:27)
--- NOTE | 2023-08-03 11:44 | PM.IMPN ---
Progress Note: A&P Assessment and Plan (1) Encephalopathy: Code(s): G93.40 - Encephalopathy, unspecified Status: Acute Assessment and Plan: Multifactorial toxic metabolic encephalopathy secondary to sepsis, general anesthesia, sedation, uremia, acute on chronic renal failure Resolved (2) Acute hypoxic respiratory failure: Code(s): J96.01 - Acute respiratory failure with hypoxia Status: Acute Assessment and Plan: Acute respiratory failure likely related septic shock, status post cystoscopy, pyelogram, left ureteral stent insertion, Byers catheter insertion on 07/23/2023. Patient was intubated for the procedure on 07/23 Self extubated on 07/29, could not protect her airway so was reintubated. Is extubated, currently on room air (3) Septic shock: Code(s): A41.9 - Sepsis, unspecified organism; R65.21 - Severe sepsis with septic shock Status: Acute Assessment and Plan: Shock has resolved Septic shock likely related to UTI, kidney stones, pyelonephritis She is off vasopressors, often stress dose steroids Blood culture from 07/23/2023 growing Klebsiella Vancomycin has been discontinued, continue with ceftriaxone (initiated 07/28) and complete 7 days. Anticipated discharge on friday (4) Acute kidney injury: Code(s): N17.9 - Acute kidney failure, unspecified Status: Acute Assessment and Plan: Kidney function continues to improve Avoid nephrotoxins creat is 1.2 (5) Left nephrolithiasis: Code(s): N20.0 - Calculus of kidney Status: Acute Assessment and Plan: left UPJ stone, Cystoscopy, left retrograde pyelogram, left ureteral stent insertion, Byers catheter insertion on 07/23/2023 Definitive care left UPJ stone (likely with left ESWL) once clinically stable.. Management as per Urology folow with urology as outpatient (6) Acute UTI: Code(s): N39.0 - Urinary tract infection, site not specified Status: Acute Assessment and Plan: No growth on culture (7) Iron deficiency anemia secondary to blood loss (chronic): Code(s): D50.0 - Iron deficiency anemia secondary to blood loss (chronic) Status: Acute Assessment and Plan: Status post 1 unit of PRBC on 07/25/23 Appreciate GI help pt will follow with pcp for anaemia hb is stable at 9 today (8) Atrial fibrillation: Code(s): I48.91 - Unspecified atrial fibrillation Status: Acute Assessment and Plan: PAF Cardiology has been following Currently in sinus rhythm Continue with metoprolol, aspirin Patient has not been started on anticoagulation due to anemia, required blood transfusion (9) Elevated LFTs: Code(s): R79.89 - Other specified abnormal findings of blood chemistry Status: Acute Assessment and Plan: Secondary to shock liver Hepatitis panel was negative Right upper quadrant ultrasound showed chronic cholecystitis Trend LFTs, slowly improving (10) Acute non-ST elevation myocardial infarction (NSTEMI): Code(s): I21.4 - Non-ST elevation (NSTEMI) myocardial infarction Status: Acute Assessment and Plan: NSTEMI with elevated troponins in setting of septic shock -patient was started on heparin drip but had to be stopped due to thrombocytopenia anemia requiring transfusion -appreciate cardiology consult - nstemi likley secondary to septic shock - pt had echo in hospital showing Left ventricular chamber dimension is normal. ? Left ventricular systolic function is normal, estimated at 55-60%. ? The left ventricular diastolic function is grade I diastolic dysfunction. Plan Dc tomorrow Subjective Date/time seen: 08/03/23 11:44 Interval history: Pt doing better admitted for acute respiratory failure, Septic shock, left UPJ stone, Cystoscopy, left retrograde pyelogram, left ureteral stent insertion Pt was on initially in ICU now Extubated 07/31 and transferred to [facility]
[2023-08-03 12:13] LABS: Glucose Point of Care 96 mg/dl (65-105)
[2023-08-03] MEDS: cefTRIAXone 2 GM/NS 100 ML 2 GM/100 ML BAG IVPB (14:44)
[2023-08-03 17:47] LABS: Glucose Point of Care 89 mg/dl (65-105)
[2023-08-03] MEDS: TOLNAFTATE 1% POWDER 45 GM BTL 1 APPLIC TOPICAL (20:27)
[2023-08-03 21:17] LABS: Glucose Point of Care 99 mg/dl (65-105)
[2023-08-04] VITALS (15 sets, daily range): BP systolic 124–136; BP diastolic 55–77; PULSE 65–85; RESP 14–18; TEMP 36.4–36.7; O2SAT 96–100
[2023-08-04] MEDS: CENTRAL LINE FLUSH 10 ML IV PUSH ×2 (05:34→15:58)
[2023-08-04 05:48] LABS: Triglycerides 146 mg/dL (<150)
[2023-08-04 08:12] LABS: Anion Gap 4 mmol/L (8-16); Blood Urea Nitrogen 33 mg/dL (7-17); Calcium 8.7 mg/dL (8.4-10.2); Carbon Dioxide 23 mmol/L (22-30); Chloride 115 mmol/L (98-107); Estimated CRCL calculation 59 ml/min; Estimated Glomerular Filt Rate 51; Glucose 86 mg/dL (65-110); Phosphorus 3.8 mg/dL (2.5-4.5); Potassium 3.9 mmol/L (3.4-5.0); Sodium 142 mmol/L (137-145)
[2023-08-04 08:54] LABS: Glucose Point of Care 106 mg/dl (65-105)
[2023-08-04] MEDS: ASPIRIN 325 MG TABLET FEED TUBE (09:05)
[2023-08-04] MEDS: ENOXAPARIN 40 MG/0.4 ML SYRINGE SUB-Q (09:05)
[2023-08-04] MEDS: amLODIPine BESYLATE 5 MG TABLET 10 MG PO (09:11)
[2023-08-04] MEDS: METOPROLOL TARTRATE 50 MG TAB PO (09:11)
[2023-08-04] MEDS: PANTOPRAZOLE SODIUM IV 40 MG VIAL IV PUSH (09:11)
[2023-08-04] MEDS: TOLNAFTATE 1% POWDER 45 GM BTL 1 APPLIC TOPICAL (09:12)
[2023-08-04] MEDS: MINERAL OIL/WHITE PETROLATUM OINTMENT 1 APPLIC EACH EYE (09:12)
[2023-08-04] MEDS: IPRATROPIUM BR 0.02% INH SOLN 0.5 MG/2.5 ML VIAL INHALATION ×2 (09:17→14:06)
[2023-08-04] MEDS: LEVALBUTEROL NEB 1.25 MG/3 ML 0.63 MG INHALATION ×2 (09:19→14:05)
[2023-08-04 11:17] LABS: Basophils Absolute Auto 0.1 K/mm3 (0.0-0.1); Basophils Percent Auto 1.4 % (0.2-1.2); Eosinophils Absolute Auto 0.2 K/mm3 (0-0.3); Eosinophils Percent Auto 2.7 % (0-4.4); Hematocrit 33.4 % (37.0-47.0); Immature Granulocyte Absolute 0.02 K/mm3 (0.00-0.031); Immature Granulocyte Percent A 0.3 % (0-0.5); Lymphocytes Percent Auto 17.4 % (18.3-44.2); Mean Corpuscular HGB Conc 29.9 g/dl (32-36); Mean Corpuscular Hemoglobin 28.4 pg (26-34); Mean Corpuscular Volume 94.9 fl (80-100); Mean Platelet Volume 11.3 fl (7.4-10.4); Monocytes Absolute Auto 0.6 K/mm3 (0.1-0.6); Monocytes Percent Auto 8.8 % (2.6-8.5); Neutrophils Absolute Auto 4.4 K/mm3 (1.3-6.7); Neutrophils Percent Auto 69.4 % (45.5-73.1); Platelet Count Result 358 k/mm3 (150-375); Red Blood Count 3.52 M/mm3 (4.2-5.4); White Blood Count 6.3 K/mm3 (4.5-10.0)
[2023-08-04 12:07] LABS: Glucose Point of Care 105 mg/dl (65-105)
--- NOTE | 2023-08-04 15:45 | PM.DS ---
DS: Admitting Diagnosis Discharge Date 08/04/2023: Admitting Diagnosis Septic shock Left nephrolithiasis Acute respiratory failure requiring intubation Life-threatening emergency DS: Discharge Diagnosis Discharge Diagnosis (1) Encephalopathy: Code(s): G93.40 - Encephalopathy, unspecified Status: Acute (2) ARF (acute renal failure): Code(s): N17.9 - Acute kidney failure, unspecified Status: Acute (3) Atrial fibrillation: Code(s): I48.91 - Unspecified atrial fibrillation Status: Acute (4) Atrial fibrillation with rapid ventricular response: Code(s): I48.91 - Unspecified atrial fibrillation Status: Acute (5) Morbid obesity with BMI of 40.0-44.9, adult: Code(s): E66.01 - Morbid (severe) obesity due to excess calories; Z68.41 - Body mass index [BMI] 40.0-44.9, adult Status: Acute (6) Acute hypoxic respiratory failure: Code(s): J96.01 - Acute respiratory failure with hypoxia Status: Acute (7) Left ureteral stone: Code(s): N20.1 - Calculus of ureter Status: Acute (8) Septic shock: Code(s): A41.9 - Sepsis, unspecified organism; R65.21 - Severe sepsis with septic shock Status: Acute (9) Acute UTI: Code(s): N39.0 - Urinary tract infection, site not specified Status: Acute (10) Left nephrolithiasis: Code(s): N20.0 - Calculus of kidney Status: Acute (11) Vitamin B 12 deficiency: Code(s): E53.8 - Deficiency of other specified B group vitamins Status: Acute (12) Venous insufficiency: Code(s): I87.2 - Venous insufficiency (chronic) (peripheral) Status: Acute (13) Pure hyperglyceridemia: Code(s): E78.1 - Pure hyperglyceridemia Status: Acute (14) group home (current) use of anticoagulants: Code(s): Z79.01 - leaf stripper (current) use of anticoagulants Status: Acute (15) Iron deficiency anemia secondary to blood loss (chronic): Code(s): D50.0 - Iron deficiency anemia secondary to blood loss (chronic) Status: Acute (16) GERD with esophagitis: Code(s): K21.0 - Gastro-esophageal reflux disease with esophagitis Status: Acute (17) Chronic anemia: Code(s): D64.9 - Anemia, unspecified Status: Acute (18) Generalized anxiety disorder: Code(s): F41.1 - Generalized anxiety disorder Status: Acute (19) Hiatal hernia: Code(s): K44.9 - Diaphragmatic hernia without obstruction or gangrene Status: Acute (20) Acute LA: Code(s): I21.9 - Acute myocardial infarction, unspecified Status: Acute (21) Anemia: Code(s): D64.9 - Anemia, unspecified Status: Acute DS: Summary Hospital Course Reason for hospitalization: Patient admitted with septic shock due to UTI caused by left nephrolithiasis leading to acute respiratory failure needing intubation and acute LA. Hospital Course: H&P: HPI History of Present Illness Date/Time: 07/23/23? 22:38 Chief Complaint: back pain Narrative: This is a 67-year-old female with past medical history significant for morbid obesity, complex regional pain syndrome, dyslipidemia, GERD.? Patient presents to the emergency room due to back pain and not feeling well overall.? In emergency room patient had being anuric for several hours unable to give a urine sample.? CT of abdomen and pelvis showed a retained UPJ stone.? Patient received fluids and was taken to the OR for stent placement.? Was unable to been weaned off of ventilator.? Patient developed hypotension.? Left IJ was placed patient responded to fluids.? Preliminary workup was significant for elevated troponins.? Currently in ICU. HOSPITAL COURSE ... 07/23/2023 - 08/04/2023: (1) Encephalopathy: ?Code(s): G93.40 - Encephalopathy, unspecified ?Status:?Acute ?Assessment and Plan: Multifactorial toxic metabolic encephalopathy secondary to sepsis, general anesthesia, sedation, uremia
== END 2023-08-04 17:46 | disposition home health service (06) | DRG 853 ==
LOC: ANHED 19:50 → ANHSURGERY 22:02 → ANHICU 22:06 → ANH2MED 08-01 10:57
PROVIDERS: Internal Medicine; Internal Medicine Nephrology; Urology; Admitting Provider Internal Medicine; Emergency Provider Student in an Organized Health Care Education/Training Program; PCP Family Medicine; Visit Provider Family Medicine
PROC: 0T778DZ Dilation of Left Ureter with Intraluminal Device, Via Natural or Artificial Opening Endoscopic (ICD-10-PCS; CPT 52352; principal; 2023-07-23 08:30)
DX: A41.89 Other specified sepsis (principal); G92.8 Other toxic encephalopathy; I21.A1 Myocardial infarction type 2; R65.21 Severe sepsis with septic shock; J96.01 Acute respiratory failure with hypoxia; K72.00 Acute and subacute hepatic failure without coma; N17.9 Acute kidney failure, unspecified; N13.6 Pyonephrosis; Z68.41 Body mass index [BMI] 40.0-44.9, adult; G90.522 Complex regional pain syndrome I of left lower limb; E87.20 Acidosis, unspecified; E66.01 Morbid (severe) obesity due to excess calories; E78.5 Hyperlipidemia, unspecified; K21.9 Gastro-esophageal reflux disease without esophagitis; K44.9 Diaphragmatic hernia without obstruction or gangrene; N20.0 Calculus of kidney; F41.1 Generalized anxiety disorder; I48.91 Unspecified atrial fibrillation; D50.0 Iron deficiency anemia secondary to blood loss (chronic); D69.59 Other secondary thrombocytopenia; Z20.822 Contact with and (suspected) exposure to COVID-19
CPT/HCPCS: 36415; 36430; 36600; 70450; 71045; 71046; 74176; 74420; 76705; 80048; 80053; 80074; 80202; 81001; 82140; 82274; 82375; 82550; 82607; 82746; 82805; 82948; 83050; 83540; 83550; 83605; 83690; 83735; 84100; 84439; 84443; 84478; 84480; 84484; 85025; 85027; 85055; 85610; 85730; 86140; 86706; 86850; 86900; 86901; 86923; 87040; 87077; 87086; 87186; 87340; 87637; 93005; 94002; 94003; 94640; 96361; 96365; 96366; 96367; 96375; 97110; 97112; 97116; 97161; 97166; 97530; 97535; 99291; A9270; C1751; C1758; C1769; C2617; C8929; C9113; J0171; J0330; J0360; J0692; J0696; J1644; J1650; J1720; J1940; J2185; J2250; J2270; J2405; J2543; J2704; J3010; J3370; J3475; J3480; J7030; J7040; J7050; J7060; J7120; P9016; P9045; P9047; Q9957; Q9966

== ENCOUNTER 2023-08-12 11:25 | Outpatient (CLI) | payer BC, SELFPAY ==
--- NOTE | ~2023-08-12 | XR_ITS ---
EXAMINATION: XR abdomen/kub 1V INDICATION: Left-sided stone TECHNIQUE: Supine views of the abdomen were obtained on 2 radiographs. COMPARISON: 07/23/2023 FINDINGS: A left internal ureteral stent has been placed in expected position. There is a 7 mm stone of the left kidney lower pole. Smaller stones in the upper pole of the left kidney measure up to 2 mm . There is a 9 mm stone of the right mid kidney. A 2 mm stone is noted in the upper pole of the right kidney. There are no dilated loops of bowel. The visualized lung bases are clear. An IVC filter is n oted. IMPRESSION: 1. Bilateral nephrolithiasis with left internal ureteral stent in expected position. Reviewed, dictated and finalized at location L. [place] [employer] IMPRESSION: 1. Bilateral nephrolithiasis with left internal ureteral stent in expected posi tion.
== END 2023-08-12 11:26 | disposition home or self-care (01) ==
PROVIDERS: PCP Family Medicine; Visit Provider Urology
DX: N20.1 Calculus of ureter (principal); N20.0 Calculus of kidney; Z96.0 Presence of urogenital implants
CPT/HCPCS: 74018

== ENCOUNTER 2023-08-26 09:38 | Outpatient (CLI) | payer BC, SELFPAY ==
--- NOTE | 2023-08-26 09:43 | ECG_ITS ---
Measurements Intervals [place] Rate: 58 P: 45 DC: 174 QRS: -8 QRSD: 107 T: -4 QT: 399 QTc: 393 Interpretive Statements SINUS BRADYCARDIA VOLTAGE CRITERIA FOR LVH POOR R WAVE PROGRESSION, ANTERIOR LEADS MINIMAL Q WAVES- HIGH LATERAL LEADS BORDERLINE T WAVE ABNORMALITY- ANT/INF LEADS BASELINE ARTIFACT- I, II, III, AVR, AVL, AVF, V4-V6 BORDERLINE ECG COMPARED TO ECG 08/02/2023 21:18:59 SINUS BRADYCARDIA NOW PRESENT Electronically Signed On 08-26-2023 10:33:07 METAL MIXER by Everardo Isaac D.O.
[2023-08-26 10:26] LABS: Hematocrit 33.8 % (37.0-47.0); Hemoglobin 10.8 g/dL (12.0-15.0)
[2023-08-26 10:38] LABS: Partial Thromboplastin Time 25.4 SECONDS (22.3-36.8); Prothrombin Time 13.2 Seconds (11.1-14.7)
== END 2023-08-26 09:39 | disposition home or self-care (01) ==
LOC: ANHSURGERY 09:42
PROVIDERS: Anesthesiology; PCP Family Medicine; Visit Provider Urology
DX: Z01.818 Encounter for other preprocedural examination (principal); N20.0 Calculus of kidney; N20.1 Calculus of ureter; D64.9 Anemia, unspecified; I48.91 Unspecified atrial fibrillation
CPT/HCPCS: 36415; 85014; 85018; 85610; 85730; 87086; 87088; 93005

== ENCOUNTER 2023-08-29 01:32 | Day surgery (SDC) | payer BC, SELFPAY ==
[2023-08-21 08:11] VITALS: BMI 35.6
--- NOTE | 2023-08-21 08:28 | PC.NURSE ---
Report to the Outpatient Waiting Room, entrance under the green pavilion located off [facility], at time _0700 on date 08/29/22_. Planned Procedure Time: ___0900. Time changes happen often and if your time is changed the preop area will call you the afternoon before. - You and your visitor will be asked to self-screen and do not enter if you have any COVID symptoms. - A mask is optional within the hospital at this time. Patients may have clear liquids (water, carbonated beverages, clear teas, apple juice) until 3 hours prior to surgery with a maximum of 20 ounces. - No food from midnight until time of surgery - Infants may have breast milk until 4 hours before surgery, formula 6 hours prior to surgery. - Children will be allowed to drink immediately following surgery. If applicable, please bring a bottle or sippy cup to assist with drinking. Juice, water, soda, and popsicles are readily available. For infants on formula, please bring formula the day of surgery. Pacifiers are allowed. Take the following medications with a SIP of water the morning of surgery: ____METOPROLOL, ALPRAZOLAM IF NEEDED DO NOT STOP ANY OF YOUR OTHER PRESCRIPTION MEDICATIONS PRIOR TO SURGERY ?EXCEPT THE FOLLOWING Medications to discontinue per physician ASA- STOPPED 08/20 PER MED, VITAMINS/ SUPPLIMENTS STOP 08/26/22 Date to take last dose Please no make-up, nail chinese, hairspray, perfume, deodorant, or body powder the day of surgery. No jewelry (including any body piercings) or valuables the day of surgery, leave them at home. Please take a shower or bath the night before, or the morning of, surgery with an antibacterial soap. Wear comfortable, loose fitting clothing. Children are encouraged to wear pajamas. - Jewelry must be removed prior to entering the operating room. Rings and piercings that are not removed may be cut off. - The hospital will not accept responsibility for valuables. - Please leave all valuables, including medications, at home the day of surgery. If you are going home after surgery, a licensed armor reconnaissance vehicle driver must drive you home. - NO public transportation without another adult if you receive anesthesia. - We recommend that an adult stay with you for 24 hours following discharge. - We also recommend that you do not drive, make important decision, drink alcoholic beverages, or take any drugs that were not prescribed by your health care provider for at least 24 hours after your discharge time. For Pediatric surgeries, we recommend two adults accompany the child home. Follow any additional instructions given to you from your surgeon. If you or anyone in your household have experienced Covid symptoms in the past week, please notify your surgeon or the nurse liaison at the phone number below for possible testing. Telephone instructions given to _PATIENT_and asked if any additional questions and then verbalized understanding. Patient advised to call surgeon office or pre surgery nurse liaison [phone] if any additional questions.
[2023-08-29] VITALS (8 sets, daily range): BP systolic 104–132; BP diastolic 53–81; PULSE 61–71; RESP 16–20; TEMP 36.4–36.5; O2SAT 94–100
--- NOTE | ~2023-08-29 | XR_ITS ---
Supine and upright views of the abdomen Clinical history: Kidney stone COMPARISON: 08/12/2023 Findings: Bowel gas pattern is nonspecific. No evidence for obstruction or free air. Bilateral nephro lithiasis unchanged. Left ureteral stent again present. IVC filter placement. Osseous structures are intact. Impression: Stable bilateral nephrolithiasis with left ureteral stent. IVC filter. Reviewed, dictated and finalized at [facility]. [facility] Impression: Stable bilateral nephrolithiasis with left ureteral stent. IVC filter.
--- NOTE | 2023-08-29 07:31 | WPDHPUPDATE1 ---
History and Physical Update Update Date/Time: 08/29/23 07:31 History and Physical has been reviewed, including an updated exam of the patient. There are NO changes in the patient's condition. Risks, benefits, and alternatives have been discussed and questions answered. Patient agrees to proceed with procedure. Proceed with left renal eswl
[2023-08-29] MEDS: LACTATED RINGERS 1,000 ML 30 ML IV CONT (08:06)
--- NOTE | 2023-08-29 08:55 | WPDANESEPPF ---
Anes - Initial Pre Proc Eval Procedure: Operation Date: 08/29/23 09:00 Proposed Procedures p Left Extracorporeal Shock Wave Lithotripsy - Tung Coello MD Date/Time: 08/29/23 08:55 Surgeon: Tung Coello MD Pre Op Diagnosis: left ureteral stones Patient Data Age: 58 Gender: F Height: 1.68 m Weight: 101.9 kg Last Vital Signs Temp 97.7 F 08/29/23 08:07 Pulse 71 08/29/23 08:07 Resp 16 08/29/23 08:07 BP 132/81 08/29/23 08:07 Pulse Ox 99 08/29/23 08:07 O2 Del Method Room Air 08/29/23 08:07 Allergies Allergy/AdvReac Type Severity Reaction Status Date / Time meperidine Allergy Unknown hypotension Verified 08/29/23 07:36 gabapentin AdvReac Mild could not Verified 08/29/23 07:36 tolerate duloxetine [From Cymbalta] AdvReac could not Verified 08/29/23 07:36 tolerate how she felt Home Medications Medication Instructions Recorded Confirmed Type ascorbate calcium (vitamin C) 500 500 mg PO DAILY 03/02/20 08/29/23 History mg tablet vitamin B complex (B 1 tablet PO DAILY 06/27/22 08/29/23 History Complex-Vitamin B12 tablet) vitamin E (dl, acetate) 45 mg (100 45 mg PO DAILY 06/27/22 08/29/23 History unit) capsule lovastatin 10 mg tablet 10 mg PO HS 07/23/23 08/29/23 History alprazolam 0.25 mg tablet 0.25 mg PO DAILY PRN anxiety #30 08/11/23 08/29/23 Rx tabs ferrous sulfate 325 mg (65 mg 325 mg PO DAILY 08/21/23 08/29/23 History iron) tablet (Iron (ferrous sulfate)) metoprolol tartrate 50 mg tablet 25 mg PO Q12HR 08/21/23 08/29/23 History ciprofloxacin HCl 500 mg tablet 500 mg PO Q12H #20 tabs 08/22/23 08/29/23 Rx (Cipro) Patient hx anesthesia problems: none Family hx anesthesia problems: none Results Review: All pre-operative results and documents have been reviewed as part of the pre-operative evaluation. [facility] Past Medical History Medical History Acute upper GI bleed Complex regional pain syndrome i of left lower limb Generalized anxiety disorder Hiatal hernia egd : hiatal hernia Left ureteral stone Sepsis Surgical History Surgical History History of partial hysterectomy (~1999) Family History Family History Mother Family history of malignant neoplasm Family history of diabetes mellitus in first degree relative Other Diabetes mellitus Social History Social History Smoking status: Never smoker Alcohol intake: never Substance use: never Lack of Transportation: No Lack of Food: Never True Current Housing: I Have Housing Concerned About Future Housing: No Difficulty Paying Gas/Electric Bills: No Currently Unemployed: No Education: Grade School Difficulty w/ Childcare or Family Care: No Living arrangements: with family Spiritual care concerns: No Anes - Eval Final PreProcedure Day of Procedure 08/29/23 08:55 Patient weight: obese Heart: regular rate and rhythm Lungs: clear to auscultation Airway: Mallampati scale class II Neurological: alert and oriented Last oral intake: >/= 8 hours ASA classification: III Emergent: no Anesthetic plan: proceed Anesthesia type and monitoring: general LMA and standard monitoring Results Review: All pre-operative results and documents have been reviewed as part of the pre-operative evaluation. Informed Consent: The patient's anesthetic plan and its attendant risks and benefits were discussed with the patient/family/POA. Questions were solicited and answers provided to the satisfaction of the patient/family/POA.
[2023-08-29] MEDS: ceFAZolin 2 GM/D5W 50 ML 2 GM/50 ML BAG IVPB (09:03)
--- NOTE | 2023-08-29 09:47 | W.PM.PROC2 ---
Procedure Note - Detailed Date of Procedure 08/29/23 Pre-op Diagnosis Left renal calculus 8-9 mm lower pole Post-op Diagnosis Same Procedure Performed Lithotripsy of left renal calculus Surgeon Tung Coello MD Anesthesia General Description of Procedure Patient is taken to the operative suite correctly identified. Once anesthesia was obtained the stone was localized in both planes. Two thousand five hundred shocks were given stone. There was fragmentation of the stone. Patient was taken recovery room stable condition. She will follow-up in 710 days KUB. This completes dictation. Please send a copy of op note to my office Estimated Blood Loss 0 Drains Yes Packing No Pathology None sent Complications No immediate complications Condition Stable Disposition PACU
[2023-08-29] MEDS: oxyCODONE HCL (*CRX) 5 MG TAB IR PO (11:23)
== END 2023-08-29 12:10 | disposition home or self-care (01) ==
PROVIDERS: PCP Family Medicine; Visit Provider Urology
PROC: (CPT 50590; principal; 2023-08-29 09:00)
DX: N20.0 Calculus of kidney (principal)
CPT/HCPCS: 50590; 74018; A9270; J0690; J1100; J2250; J2405; J2704; J3010; J7120

== ENCOUNTER 2023-09-15 13:01 | Outpatient (CLI) | payer BC, SELFPAY ==
--- NOTE | ~2023-09-15 | XR_ITS ---
XR abdomen/kub 1V 09/15/2023 13:38 INDICATION: Left ureteral stone TECHNIQUE: KUB COMPARISON: 08/29/2023 FINDINGS: Bowel gas pattern is normal. There is a left internal ureteral stent. There is a stone in t he mid aspect of the left ureter overlying the sacrum. There is a deployed IVC filter. There are bila teral renal stones. There is no evidence of free air, mass, organomegaly, ascites or obstruction. No abnormal calculi are seen. The bones appear intact. IMPRESSION: 1: Left mid ureteral stone at the sacral level. 2: Bilateral nephrolithiasis. Reviewed, dictated and finalized at location B. [facility] TECHNICIAN INPATIENT
== END 2023-09-15 13:02 | disposition home or self-care (01) ==
PROVIDERS: PCP Family Medicine; Visit Provider Urology
DX: N20.1 Calculus of ureter (principal); N20.0 Calculus of kidney; Z96.0 Presence of urogenital implants
CPT/HCPCS: 74018

== ENCOUNTER 2023-09-19 14:36 | Outpatient (CLI) | payer BC, SELFPAY ==
--- NOTE | ~2023-09-19 | XR_ITS ---
EXAMINATION: XR abdomen/kub 1V DATE: 09/19/2023 14:54 INDICATION: Left ureteral stone. TECHNIQUE: A supine view of the abdomen on 2 radiographs was obtained. COMPARISON: CT abdomen and pelvis 07/23/2023 FINDINGS: There are no dilated loops of bowel. There is a filter in the inferior vena cava. There is a left internal ureteral stent in expected position. There is a parenchymal calcification in right ki dney. There is a 4 mm stone in right kidney. There is a 3 mm stone in left kidney. IMPRESSION: 1. Bilateral kidney stones. 2. Left internal ureteral stent in expected position. Reviewed, dictated and finalized at location E. N SHOVELER
== END 2023-09-19 14:37 | disposition home or self-care (01) ==
LOC: ANHIMG 14:38
PROVIDERS: PCP Family Medicine; Visit Provider Urology
DX: N20.0 Calculus of kidney (principal)
CPT/HCPCS: 74018

== ENCOUNTER 2023-09-23 00:19 | Day surgery (SDC) | payer BC, SELFPAY ==
[2023-09-17 09:26] VITALS: BMI 38.2
--- NOTE | 2023-09-17 09:40 | PC.NURSE ---
Report to the Outpatient Waiting Room, entrance under the green pavilion located off [facility], at time 0630 on date 09/23/23. Planned Procedure Time: 0830. Time changes happen often and if your time is changed the preop area will call you the afternoon before. - You and your visitor will be asked to self-screen and do not enter if you have any COVID symptoms. - A mask is optional within the hospital at this time. Patients may have clear liquids (water, carbonated beverages, clear teas, apple juice) until 3 hours prior to surgery with a maximum of 20 ounces. - No food from midnight until time of surgery Take the following medications with a SIP of water the morning of surgery: METOPROLOL, ALPRAZOLAM IF NEEDED DO NOT STOP ANY OF YOUR OTHER PRESCRIPTION MEDICATIONS PRIOR TO SURGERY ?EXCEPT THE FOLLOWING Medications to discontinue per physician: VITAMINS/SUPPLEMENTS Date to take last dose: 09/19/23 Please no make-up, nail bengali, hairspray, perfume, deodorant, or body powder the day of surgery. No jewelry (including any body piercings) or valuables the day of surgery, leave them at home. Please take a shower or bath the night before, or the morning of, surgery with an antibacterial soap. Wear comfortable, loose fitting clothing. - Jewelry must be removed prior to entering the operating room. Rings and piercings that are not removed may be cut off. - The hospital will not accept responsibility for valuables. - Please leave all valuables, including medications, at home the day of surgery. If you are going home after surgery, a licensed port cdl a driver must drive you home. - NO public transportation without another adult if you receive anesthesia. - We recommend that an adult stay with you for 24 hours following discharge. - We also recommend that you do not drive, make important decision, drink alcoholic beverages, or take any drugs that were not prescribed by your health care provider for at least 24 hours after your discharge time. Follow any additional instructions given to you from your surgeon. If you or anyone in your household have experienced Covid symptoms in the past week, please notify your surgeon or the nurse liaison at the phone number below for possible testing. Telephone instructions given to PT Ale SOLO and asked if any additional questions and then verbalized understanding. Patient advised to call surgeon office or pre surgery nurse liaison [phone] if any additional questions.
[2023-09-23] VITALS (9 sets, daily range): BP systolic 110–138; BP diastolic 63–75; PULSE 53–71; RESP 16–22; TEMP 35.9–36.8; O2SAT 94–100
--- NOTE | ~2023-09-23 | XR_ITS ---
EXAMINATION: XR retrograde pyelo w/stent LT DATE: 09/23/2023 10:27 INDICATION: Left internal ureteral stent exchange. Kidney stones. TECHNIQUE: 6 intraoperative spot fluoroscopic views of the abdomen and pelvis were obtained. I was no t present. Fluoroscopy suite exposure time was 20 seconds. COMPARISON: Abdomen radiographs 09/19/23 FINDINGS: There is a filter in the inferior vena cava. Images demonstrate removal of a left internal ureteral stent. The left-sided retrograde pyelogram demonstrates mild hydronephrosis. The final image s demonstrate a new left internal ureteral stent in expected position. IMPRESSION: 1. New left internal ureteral stent in expected position. Reviewed, dictated and finalized at location A. STICS ASSISTANT
--- NOTE | 2023-09-23 06:48 | SUR.PREOP ---
Patient upset and treatening to leave due to possible stent being on consent. Says she spoke with office and told them she didn't want a stent. Explained reasons for possible stent but patient believes current UTI was caused by her stent. Encouraged patient to wait and speak directly with Dr Coello about this before signing or changing consent.
[2023-09-23] MEDS: LACTATED RINGERS 1,000 ML 30 ML IV CONT ×2 (08:15→11:38)
--- NOTE | 2023-09-23 08:28 | WPDHPUPDATE1 ---
History and Physical Update Update Date/Time: 09/23/23 08:28 History and Physical has been reviewed, including an updated exam of the patient. There are NO changes in the patient's condition. Risks, benefits, and alternatives have been discussed and questions answered. Patient agrees to proceed with procedure. Proceed with cystoscopy, left retrograde, left ureteroscopy with stone extraction , possible laser, stent exchange
--- NOTE | 2023-09-23 09:42 | WPDANESEPPF ---
Anes - Initial Pre Proc Eval Procedure: Operation Date: 09/23/23 08:30 Proposed Procedures p Cystoscopy, Left Ureteroscopy, Possible Left Retrograde Pyelogram, Possible Left Stone Extraction, Possible Left Stent Placement, Possible Holmium Laser - Tung Coello MD Date/Time: 09/23/23 09:42 Surgeon: Tung Coello MD Pre Op Diagnosis: left ureteral stone Patient Data Age: 58 Gender: F Height: 1.65 m Weight: 105 kg Last Vital Signs Temp 36.8 C 09/23/23 06:47 Pulse 56 L 09/23/23 06:47 Resp 16 09/23/23 06:47 BP 114/63 09/23/23 06:47 Pulse Ox 100 09/23/23 06:47 O2 Del Method Room Air 09/23/23 06:47 Allergies Allergy/AdvReac Type Severity Reaction Status Date / Time meperidine Allergy Unknown hypotension Verified 09/23/23 06:36 gabapentin AdvReac Mild could not Verified 09/23/23 06:36 tolerate duloxetine [From Cymbalta] AdvReac could not Verified 09/23/23 06:36 tolerate how she felt Home Medications Medication Instructions Recorded Confirmed Type ascorbate calcium (vitamin C) 500 500 mg PO DAILY 03/02/20 09/17/23 History mg tablet vitamin B complex (B 1 tablet PO DAILY 06/27/22 09/17/23 History Complex-Vitamin B12 tablet) vitamin E (dl, acetate) 45 mg (100 45 mg PO DAILY 06/27/22 09/17/23 History unit) capsule lovastatin 10 mg tablet 10 mg PO HS 07/23/23 09/17/23 History ferrous sulfate 325 mg (65 mg 325 mg PO DAILY 08/21/23 09/17/23 History iron) tablet (Iron (ferrous sulfate)) metoprolol tartrate 50 mg tablet 25 mg PO Q12HR 08/21/23 09/17/23 History alprazolam 0.25 mg tablet 0.25 mg PO DAILY PRN anxiety #30 09/12/23 09/17/23 Rx tabs nitrofurantoin 100 mg PO BID 09/23/23 09/23/23 History monohydrate/macrocrystals 100 mg capsule Patient hx anesthesia problems: none Family hx anesthesia problems: none Results Review: All pre-operative results and documents have been reviewed as part of the pre-operative evaluation. [facility] Past Medical History Medical History Acute upper GI bleed Complex regional pain syndrome i of left lower limb Generalized anxiety disorder Hiatal hernia egd : hiatal hernia Left ureteral stone Sepsis Surgical History Surgical History History of partial hysterectomy (~1999) Family History Family History Mother Family history of malignant neoplasm Family history of diabetes mellitus in first degree relative Other Diabetes mellitus Social History Social History Smoking status: Never smoker Alcohol intake: never Substance use: never Substance use type: does not use Lack of Transportation: No Lack of Food: Never True Current Housing: I Have Housing Concerned About Future Housing: No Difficulty Paying Gas/Electric Bills: No Currently Unemployed: No Education: Grade School Difficulty w/ Childcare or Family Care: No Living arrangements: with family Spiritual care concerns: No Anes - Eval Final PreProcedure Day of Procedure 09/23/23 09:42 Patient weight: obese Heart: regular rate and rhythm Lungs: clear to auscultation Airway: Mallampati scale class II Neurological: alert and oriented Last oral intake: >/= 8 hours ASA classification: III Emergent: no Anesthetic plan: proceed Anesthesia type and monitoring: general LMA and standard monitoring Results Review: All pre-operative results and documents have been reviewed as part of the pre-operative evaluation. Informed Consent: The patient's anesthetic plan and its attendant risks and benefits were discussed with the patient/family/POA. Questions were solicited and answers provided to the satisfaction of the patient/family/POA.
[2023-09-23] MEDS: ceFAZolin 2 GM/D5W 50 ML 2 GM/50 ML BAG IVPB (09:55)
[2023-09-23] MEDS: LIDOCAINE HCL 2% GEL UROJET 10 ML PKG MUCOUS MEM (10:13)
--- NOTE | 2023-09-23 10:26 | W.PM.PROC2 ---
Procedure Note - Detailed Date of Procedure 09/23/23 Pre-op Diagnosis left ureteral stone Post-op Diagnosis Same Procedure Performed Cystoscopy, left retrograde pyelogram, left ureteroscopy with stone extraction, left ureteral stent exchange 4.8 [place]uran contour Surgeon Tung Coello MD Anesthesia General Findings Approximately 7-8 stone fragments in the mid ureter. No further renal stones noted Description of Procedure Patient is taken to the operative suite correctly identified. Once anesthesia was obtained she was placed in dorsal lithotomy position and prepped and draped usual sterile fashion. Twenty-two Honduran scope was inserted the bladder. The prior stent was grasped and brought out to the meatus. Wire was passed through it. Rigid ureteral scope was then inserted. Proximally 7 8 stones were noted in the mid ureter. Using escape basket we were able to retrieve these. These are sent for analysis. Flexible mini ureteral scope was inserted all the way into the kidney. There was no other stones noted. Pyelogram was then performed. 4.8 [place]uran contour stent was then placed with the proximal end coiled in the renal pelvis and the distal in the bladder. The string was left attached to the patient can remove it in the next 2-3 days. 2% viscous lidocaine was inserted into the urethra. Patient is taken recovery stable condition. This completes dictation. Please send a copy of op note to my office. Estimated Blood Loss 0 Drains Yes Packing No Pathology Yes Complications No immediate complications Condition Stable Disposition PACU
--- NOTE | 2023-09-23 10:41 | SUR.PHASEI ---
1036 Lyla cohen applied
[2023-09-23] MEDS: fentaNYL CITRATE INJ (*CRX) 100 MCG/2 ML VIAL 25 MCG IV PUSH ×4 (11:14→11:26)
[2023-09-23] MEDS: ONDANSETRON INJ 4 MG/2 ML VIAL IV PUSH (11:37)
== END 2023-09-23 12:55 | disposition home or self-care (01) ==
PROVIDERS: PCP Family Medicine; Visit Provider Urology
PROC: (CPT 52352; principal; 2023-09-23 08:30)
DX: N20.1 Calculus of ureter (principal); G90.522 Complex regional pain syndrome I of left lower limb; F41.1 Generalized anxiety disorder; E66.9 Obesity, unspecified; Z68.38 Body mass index [BMI] 38.0-38.9, adult
CPT/HCPCS: 52332; 52352; 74420; 82365; 88300; C1758; C1769; C2617; J0690; J1100; J2405; J2704; J3010; J7120; Q9966